=== PATIENT | female | born 1960 | race Caucasian/White ===

== ENCOUNTER 2019-08-18 17:51 | Inpatient (IN) ==
[2019-08-18] MEDS ORDERED: MULTI-VITAMIN INFUSION 10 ML, THIAMINE HCL 100 MG, FOLIC ACID 1 MG in SODIUM CHLORIDE 0... IV ONE (18:32)
[2019-08-18] MEDS ORDERED: SODIUM CHLORIDE 0.9% 1000ML 1,000 ML IV SCH (18:45)
[2019-08-18 18:58] LABS: Alanine Aminotransferase 110 U/L (12-78); Albumin Level 3.4 gm/dl (3.4-5.0); Aspartate Aminotransferase 72 U/L (15-37); BUN Creatinine Ratio 52.5 (10-20); Blood Urea Nitrogen 27 mg/dl (7-18); Calcium 9.8 mg/dl (8.5-10.1); Carbon Dioxide 24 mmol/L (21-32); Chloride 109 mmol/L (98-107); Est GFR (African American) 123.7; Est GFR (Non-African American) 106.7; Glucose 216 mg/dl (70-99); Lipase 600 U/L (73-393); Potassium 3.8 mmol/L (3.5-5.1); Sodium 140 mmol/L (136-145)
[2019-08-18 19:00] LABS: Hematocrit (blood only) 51.1 % (37-47); Hemoglobin 17.8 g/dL (12.0-16.0); Mean Corpuscular Hemoglobin 32.4 pg (25-34); Mean Corpuscular Hgb Conc 34.8 g/dL (32-36); Mean Corpuscular Volume 93.1 fL (80-100); RDW Coefficient of Variation 14.7 % (11.5-14.5); RDW Standard Deviation 49.7 fL (36.4-46.3); Red Blood Count 5.49 M/uL (4.2-5.4); White Blood Count 9.05 K/uL (4.8-10.8)
[2019-08-18] MEDS ORDERED: THIAMINE HCL 500 MG in 0.9 % SODIUM CHLORIDE 100 ML IV SCH (19:00)
--- NOTE | 2019-08-18 19:02 | CT Scan Report ---
CT head/brain wo con CLINICAL HISTORY: 58 years-old Female presenting with weakness, ams. TECHNIQUE: Multidetector CT imaging of the head was performed without the use of intravenous contrast . IV contrast: None. One or more dose lowering techniques were used consistent with the principles of ALARA (as low as reasonably achievable), including automatic exposure control, mA or kV adjustment t o individual patient size, and/or use of iterative reconstruction. COMPARISON: None. CT DOSE (mGy.cm): The estimated cumulative dose is 919.77. FINDINGS: [employer] Assistant topogram: Unremarkable. Ventricles and sulci normal in size. No hemorrhage. Cerebellar atrophy. Brain parenchyma otherwise no rmal in appearance with preserved conteh-white differentiation. No acute territorial infarct. No mass e ffect or midline shift. No extra-axial fluid collection. Paranasal sinuses and mastoid air cells pierre r. Osseous lesion expanding the outer table of the calvarium in the left frontal region. There is a s eparate lesion noted immediately inferior to this in the medullary space measuring 16 mm. IMPRESSION: 1. 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 2. No acute intracranial abnormality. 3. Indeterminate osseous lesions in the left frontal bone. Please ensure the absence of a known madhu gnancy. These may be chronic and could represent chondroma as are hemangiomas among other possible co nsiderations both benign and malignant. Correlate clinically. Consider follow-up if these are new or of uncertain chronicity. Electronically signed by: Abelino Vyas M.D. 08/18/2019 7:00 PM
[2019-08-18 19:04] LABS: Albumin Globulin Ratio 0.9 (0.9-2); Alkaline Phosphatase 85 U/L (45-117); Bilirubin,Total 0.2 mg/dl (0.2-1); Globulin 3.6 gm/dl (2.5-4.0); Phosphorus 2.9 mg/dl (2.5-4.9); Troponin I < 0.015 ng/ml (0-0.045)
[2019-08-18 19:09] LABS: INR 1.1 (0.9-1.1)
--- NOTE | 2019-08-18 19:09 | CT Scan Report ---
CT cervical spine wo con CLINICAL HISTORY: 58 years-old Female presenting with ams. TECHNIQUE: Multidetector CT of the cervical spine was performed without the use of intravenous contra st. IV contrast: None. One or more dose lowering techniques were used consistent with the principles of ALARA (as low as reasonably achievable), including automatic exposure control, mA or kV adjustment to individual patient size, and/or use of iterative reconstruction. COMPARISON: None. CT DOSE (mGy.cm): The estimated cumulative dose is 919.77 mGy.cm. FINDINGS: Site Director topogram: Unremarkable. Straightening of normal cervical lordosis likely due to multilevel degenerative changes. Heterogeneou s appearance of bone marrow. Mild compression deformity with a possible fracture of the anterior supe rior corner of T1. This is also noted to a lesser degree at T2. No additional fracture is evident in the cervical spine. Remainder of the vertebral bodies maintain normal height and alignment. Disc oste ophyte complexes noted to varying degrees at every level with very degrees of intervertebral disc hei ght loss. There are degrees of osseous neural foraminal narrowing. Skull base intact. Mild degenerati ve changes of the atlantodental articulation. IMPRESSION: 1. Mild compression fracture of T1, which may be acute including an anterior superior corner fractur e. Similar though less severe findings at T2. 2. No acute osseous injury of the cervical spine. 3. Multilevel degenerative changes. 4. Heterogeneity of bone marrow could suggest underlying osteopenia or marrow replacing process. Pre sumably the patient does not have a history of malignancy. Electronically signed by: Abelino Vyas M.D. 08/18/2019 7:08 PM
[2019-08-18 19:19] LABS: Appearance Urine Clear (Clear); Bacteria Urine Automated Negative (Negative); Bilirubin Urine Negative (Negative); Blood Urine Negative (Negative); Cast Urine Automated 0 /lpf (0-5); Color Urine Yellow; Epithelial Cell Urine Auto >30 /lpf (0-5); Glucose Urine UA Negative (Negative); Ketones Urine Trace (Negative); Leukocyte Esterase Urine Trace (Negative); Nitrite Urine Negative (Negative); Protein Urine Negative (Negative); RBC Urine Automated 0-4 /hpf (0-4); Specific Gravity Urine 1.018 (1.000-1.030); Urobilinogen Urine Negative (Negative); pH Urine 5.5 (4.5-7.5)
--- NOTE | 2019-08-18 19:21 | XRay Report ---
XR chest 1V portable CLINICAL HISTORY: 58 years-old Female presenting with ams, weakness. TECHNIQUE: Portable upright AP view of the chest was obtained. COMPARISON: None. FINDINGS: Borderline cardiac silhouette enlargement. No focal opacity. No large effusion or pneumothorax. [place] structures normal. Upper abdomen normal. IMPRESSION: 1. Borderline cardiomegaly. No other convincing evidence of acute cardiopulmonary disease. Electronically signed by: Abelino Vyas M.D. 08/18/2019 7:19 PM
[2019-08-18 19:33] LABS: Base Excess VBG -0.8 mEq/L; Oxygen Saturation VBG 93.4 %; pH VBG 7.34 (7.36-7.41)
[2019-08-18 19:42] LABS: Mean Platelet Volume 11.6 fL (7.4-10.4); Platelet Count 92 K/uL (130-400)
[2019-08-18 19:43] LABS: Basophils # (auto) 0.01 K/uL (0-0.2); Basophils % (auto) 0.1 %; Eosinophils # (auto) 0.02 K/uL (0-0.5); Eosinophils % (auto) 0.2 %; Immature Granulocytes # (auto) 0.03 K/uL (0.00-0.02); Immature Granulocytes % (auto) 0.3 %; Lymphocytes # (auto) 1.29 K/uL (1.2-3.4); Lymphocytes % (auto) 14.3 %; Monocytes # (auto) 0.49 K/uL (0.11-0.59); Monocytes % (auto) 5.4 %; Neutrophils # (auto) 7.21 K/uL (1.4-6.5); Neutrophils % (auto) 79.7 %; Platelet Estimate Decreased (Normal)
--- NOTE | 2019-08-18 21:30 | Communication Note ---
Date of Service: August 18, 2019 Attending Addendum: care coordinated with EB Rapp please refer to her notes for full details, I agree with her notes patient seen and examined, records reviewed by myself as well on exam, patient seen resting in bed, comfortable, not in distress, alert, oriented to person and place slow to answer questions, very soft voice but conversant, cooperative, calm not aware while she was brought by family to the ER states she feels fine overall only reports "stomach upset" at home, non radiating, no nause/vomiting, melena, nausea, hematemesis no other symptoms VS noted and reviewed General- oriented x 2, not in distress, speaks in sentences with no effort or accessory muscle use Head- atraumatic Eyes- PERRL, EOMI, anicteric ENT- oropharynx clear Neck- supple, no JVD, no adenopathy, no thyromegaly; carotids +2/2, no bruits appreciated Lungs- clear to auscultation bilaterally, no rales/wheezes Heart- normal rate, regular rhythm; no murmur, no gallop, no rub appreciated Abdomen- normal bowel sounds, nondistended, soft, nontender, no masses or hepatosplenomegaly Extremities- no pretibial edema, no calf tenderness; peripheral pulses intact Neuro- alert, oriented x 2; CN 2-12 grossly intact; motor 5/5 bilaterally;sensation 100% on all extremities; no other gross focal neurologic deficits Skin- warm & dry WBC 9.05 [address] head: IMPRESSION: 1. 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 2. No acute intracranial abnormality. 3. Indeterminate osseous lesions in the left frontal bone. Please ensure the absence of a known malignancy. These may be chronic and could represent chondroma as are hemangiomas among other possible considerations both benign and malignant. Correlate clinically. Consider follow-up if these are new or of uncertain chronicity. ASSESSMENT AND PLAN WEAKNESS, HYPOTHERMIA -- patient's mental status at baseline as per brother -- R/O Infection unclear focus of infection at this time: UA no uti, CXR no pneumonia ff up cultures cover with empiric Cefepime -- r/o Hypothyroidism TSH/FT4 -- r/o Hypoadrenalism Cortisol level ABDOMINAL PAIN, POSSIBLE PANCREATITIS -- likely Alcohol related Lipase 600s -- ff up CT abdomen/pelvis -- NPO, Lactated Ringer's R/O BRAIN MASS -- CT head: Indeterminate osseous lesions in the left frontal bone. Please ensure the absence of a known malignancy. These may be chronic and could represent chondroma as are hemangiomas among other possible considerations both benign and malignant. Correlate clinically. Consider follow-up if these are new or of uncertain chronicity. -- ff up Brain MRI Neurochecks HYPERGLYCEMIA -- not a known Diabetic -- check AIC -- Insulin Sliding Scale for now ALCOHOLISM -- drinks 4-5 beers/day -- last drink 1-2 days ago -- Alcohol Withdrawal Protocol with Librium other diagnoses and plan of care as per EB Rapp's notes Nico Rangel MD
--- NOTE | 2019-08-18 21:46 | History & Physical Report ---
Date of Service August 18, 2019 Assessment & Plan (1) Hypothermia: -Admit to telemetry -Patient's brother called EMS to bring the patient in for evaluation of sluggishness and slow to respond -In the ED, found to be hypothermic at 32 C; was also initially bradycardic, HR improving -Etiology unclear at this point -will rule out infection; UA does not appear infected, blood cultures obtained, CXR does not show signs of pneumonia; empiric cefepime for now -Check TSH -Check random cortisol level to evaluate for hypo-adrenalism -Pancreatitis and CVA also considered however unlikely given the patient does not have extreme cases of either of these -Continue kranthi sun (2) Alcoholism: (3) Wernicke encephalopathy: -Per patient's brother, she drinks 4-5 beers/day -Also history of Wernicke encephalopathy and does take vitamins daily (however vitamins are currently unknown) -Received banana bag in the ED -Alcohol withdrawal protocol with Librium, PRN Ativan -P.o. thiamine, multivitamin, folic acid (4) Abdominal pain: -? pancreatitis, lipase 600; likely chronic pancreatitis secondary to alcohol use -N.p.o., LR @150 cc/hour -Check CT ABD/pelvis (5) Brain lesion: -CT head showing indeterminate osseous lesions in the left frontal bone question possible malignancy -Brain MRI (6) Hyperglycemia: -Random glucose 216 -No report of diabetes -Check Hgb A1c -NovoLog per protocol (7) Thrombocytopenia: -Platelets 92K -No signs of bleeding -Likely secondary to chronic alcohol use (8) DVT prophylaxis: -SCDs due to thrombocytopenia Care was discussed with patient's brother Hiram [phone] who she is currently staying with. Patient primarily lives with her other brother Navarro [phone]. History of Present Illness Chief Complaint: Slow to respond, sluggish Primary Care Provider: NO PCP 58-year-old female who was brought to the ED via EMS for evaluation of sl uggishness. Patient has history of Wernicke encephalopathy and alcoholism. History is somewhat limited from her. I spoke to the patient's brother, Hiram on the phone. He reports that the patient typically lives with their other brother, Navarro, most of the time however he has been out of town for work the past 3 weeks and he she has been staying with Hiram. He reports the patient has history of Wernicke encephalopathy and takes vitamins on a daily basis. He is unsure of exactly what vitamin she is taking but reports she has been taking them recently and has not missed any doses. Patient drinks 4 to 5 cans of beer per day for the past several years. No history of alcohol withdrawal. No reported drug abuse. At the time of our exam, patient is awake and alert. Her speech is soft and somewhat pressured. She reports that she has had an upset stomach the past few days. She denies any other complaints. Upon arrival to the ED, patient was found to be hypothermic at 32 C. She was also bradycardic in the 40s however heart rate has been improving. Labs show hyperglycemia with glucose 216 and mildly elevated AST and ALTs, lipase 600. CXR is negative for acute findings. Head CT is negative for acute intracranial findings however does show possible left frontal osseous bone lesions. Patient was given a banana bag, IVF, IV thiamine. 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 Physical Exam Physical Exam: Please refer to Dr. Rangel's addendum for physical exam. Results & Data Vital Signs (Past 12 Hours) Vital Signs Temp Pulse Pulse Resp BP BP Pulse Ox 08/18/19 20:58 32.3 C L 08/18/19 19:23 42 L 11 L 108/64 97 08/18/19 19:10 44 L 13 96 08/18/19 19:01 42 L 12 98 08/18/19 19:00 41 L 10 L 116/63 96 08/18/19 18:53 66 12 98 08/18/19 18:31 44 L 12 104/54 L 96 08/18/19 18:30 47 L 15 93 08/18/19 18:20 47 L 11 L 95 08/18/19 18:15 48 L 12 114/64 95 08/18/19 18:10 46 L 13 97 08/18/19 18:03 32.0 C L 48 L 14 112/64 96 08/18/19 18:01 56 L 13 96 08/18/19 18:00 48 L 12 112/64 95 Laboratory Results Short CBC 08/18/19 Range/Units 18:23 WBC 9.05 (4.8-10.8) K/uL Hgb 17.8 H (12.0-16.0) g/dL Hct 51.1 H (37-47) % Plt Count 92 L (130-400) K/uL BMP 08/18/19 18:23 Sodium 140 Potassium 3.8 Chloride 109 H Carbon Dioxide 24 BUN 27 H Creatinine 0.51 L Glucose 216 H Calcium 9.8 Cardiac Enzymes 08/18/19 Range/Units 18:23 Troponin I < 0.015 (0-0.045) ng/ml Liver Function 08/18/19 Range/Units 18:23 Total Bilirubin 0.2 (0.2-1) mg/dl AST 72 H (15-37) U/L ALT 110 H (12-78) U/L Alkaline Phosphatase 85 (45-117) U/L Albumin 3.4 (3.4-5.0) gm/dl Urine 08/18/19 Range/Units 18:35 Urine Color Yellow Urine Appearance Clear (Clear) Urine pH 5.5 (4.5-7.5) Ur Specific [place] 1.018 (1.000-1.030) Urine Protein Negative (Negative) Urine Glucose (UA) Negative (Negative) Diagnostic Findings CERVICAL SPINE CT IMPRESSION: 1. Mild compression fracture of T1, which may be acute including an anterior superior corner fracture. Similar though less severe findings at T2. 2. No acute osseous injury of the cervical spine. 3. Multilevel degenerative changes. 4. Heterogeneity of bone marrow could suggest underlying osteopenia or marrow replacing process. Presumably the patient does not have a history of malignancy. HEAD CT IMPRESSION: 1. 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 2. No acute intracranial abnormality. 3. Indeterminate osseous lesions in the left frontal bone. Please ensure the absence of a known malignancy. These may be chronic and could represent chondroma as are hemangiomas among other possible considerations both benign and malignant. Correlate clinically. Consider follow-up if these are new or of uncertain chronicity. CXR IMPRESSION: 1. Borderline cardiomegaly. No other convincing evidence of acute cardiopulmonary disease. Code Status & VTE Plan VTE Prophylaxis Plan VTE Prophylaxis will be ordered: Yes Supervising Physician Co-Signing Physician Notes Date of Service: August 18, 2019 Attending Addendum: care coordinated with EB Rapp please refer to her notes for full details, I agree with her notes patient seen and examined, records reviewed by myself as well on exam, patient seen resting in bed, comfortable, not in distress, alert, oriented to person and place slow to answer questions, very soft voice but conversant, cooperative, calm not aware while she was brought by family to the ER states she feels fine overall only reports "stomach upset" at home, non radiating, no nause/vomiting, melena, nausea, hematemesis no other symptoms VS noted and reviewed General- oriented x 2, not in distress, speaks in sentences with no effort or accessory muscle use Head- atraumatic Eyes- PERRL, EOMI, anicteric ENT- oropharynx clear Neck- supple, no JVD, no adenopathy, no thyromegaly; carotids +2/2, no bruits appreciated Lungs- clear to auscultation bilaterally, no rales/wheezes Heart- normal rate, regular rhythm; no murmur, no gallop, no rub appreciated Abdomen- normal bowel sounds, nondistended, soft, nontender, no masses or hepatosplenomegaly Extremities- no pretibial edema, no calf tenderness; peripheral pulses intact Neuro- alert, oriented x 2; CN 2-12 grossly intact; motor 5/5 bilaterally;sensation 100% on all extremities; no other gross focal neurologic deficits Skin- warm & dry WBC 9.05 [address] head: IMPRESSION: 1. 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 2. No acute intracranial abnormality. 3. Indeterminate osseous lesions in the left frontal bone. Please ensure the absence of a known malignancy. These may be chronic and could represent chondroma as are hemangiomas among other possible considerations both benign and malignant. Correlate clinically. Consider follow-up if these are new or of uncertain chronicity. ASSESSMENT AND PLAN WEAKNESS, HYPOTHERMIA -- patient's mental status at baseline as per brother -- R/O Infection unclear focus of infection at this time: UA no uti, CXR no pneumonia ff up cultures cover with empiric Cefepime -- r/o Hypothyroidism TSH/FT4 -- r/o Hypoadrenalism Cortisol level ABDOMINAL PAIN, POSSIBLE PANCREATITIS -- likely Alcohol related Lipase 600s -- ff up CT abdomen/pelvis -- NPO, Lactated Ringer's R/O BRAIN MASS -- CT head: Indeterminate osseous lesions in the left frontal bone. Please ensure the absence of a known malignancy. These may be chronic and could represent chondroma as are hemangiomas among other possible considerations both benign and malignant. Correlate clinically. Consider follow-up if these are new or of uncertain chronicity. -- ff up Brain MRI Neurochecks HYPERGLYCEMIA -- not a known Diabetic -- check AIC -- Insulin Sliding Scale for now ALCOHOLISM -- drinks 4-5 beers/day -- last drink 1-2 days ago -- Alcohol Withdrawal Protocol with Librium other diagnoses and plan of care as per EB Rapp's notes Nico Rangel MD (1) Hypothermia Encounter type: initial encounter Qualified Code(s): T68.XXXA - Hypothermia, initial encounter
[2019-08-18] MEDS ORDERED: DEXTROSE 50% 50 ML SYRINGE IV PRN (22:47)
[2019-08-18] MEDS ORDERED: GLUCOSE 10 TABS/TUBE PO PRN (22:47)
[2019-08-18] MEDS ORDERED: GLUCOSE 40% GEL 15 GM TUBE PO PRN (22:47)
[2019-08-18] MEDS ORDERED: GLUCAGON FOR INJ 1 MG VIAL SQ PRN (22:47)
[2019-08-18] MEDS ORDERED: CARBOHYDRATES FOR HYPOGLYCEMIA PO PRN (22:47)
[2019-08-18] MEDS ORDERED: LORazepam 1 MG/2 ML VIAL IV PRN (22:47)
[2019-08-18] MEDS ORDERED: LORazepam 3 MG/6 ML VIAL IV PRN (22:47)
[2019-08-18] MEDS ORDERED: ATIVAN IV ALCOHOL WITHDRAWL IV PRN (22:47)
[2019-08-18] MEDS ORDERED: LORazepam 1 MG TAB PO PRN (22:47)
[2019-08-18] MEDS ORDERED: ACETAMINOPHEN 325 MG TAB PO PRN (22:47)
[2019-08-18] MEDS ORDERED: LORazepam 2 MG/4 ML VIAL IV PRN (22:47)
[2019-08-18] MEDS ORDERED: chlordiazePOXIDE ALCOHOL WITHDRAWL 25MG PO STA (22:47)
[2019-08-18] MEDS: LACTATED RINGER'S 1,000 ML IV SCH (22:59)
[2019-08-18] MEDS: CEFEPIME 1,000 MG in SYRINGE 0 ML IV SCH (23:31)
[2019-08-19] MEDS: INSULIN ASPART 100 UNITS/ML 3 ML PEN SC SCH ×5 (00:04→21:38)
[2019-08-19] MEDS: THIAMINE HCL 100 MG TAB PO SCH ×2 (00:04→08:03)
[2019-08-19] MEDS: chlordiazePOXIDE HCl 25 MG CAP PO SCH ×5 (00:25→22:35)
--- NOTE | 2019-08-19 01:12 | Emergency Department Note ---
Entered by Will Rios acting as a scribe for Arthur Neal M.D. History of Present Illness General Chief complaint: Illness Stated complaint: CONFUSION, NEURO SX Time Seen by Provider: 08/18/19 18:27 Source: other (Nursing) Limitations: altered mental status History of Present Illness Location: head Maximum Pain Intensity: 0 Associated symptoms: + weakness and + other (slurring words, gargling) The patient is a 58 year old female who presents to the Emergency Room with complaints of AMS. Nursing states the patient is an alcoholic and has not drank in the past 2 days. Nursing states the patient was walking around outside in the cold yesterday. Nursing stats the patient has been getting more weak and started slurring and gargling today. Nursing states the patient's rectal temperature was 32. Nursing states the patient's HR has been down to the 40s. The patient nods her head when asked if she is in any pain. HPI is limited secondary to altered mental status. Home Medications Home Medications Medication Instructions Recorded Confirmed Type Unobtainable 08/18/19 08/18/19 History Allergies Allergy/AdvReac Type Severity Reaction Status Date / Time Unable to Assess Allergy Unverified 08/18/19 18:22 Past Med/Surg History Medical History Alcoholism Wernickes encephalopathy Family History Other Family history unobtainable Social History Preferred Language: [place] Island[place] Communication Ability: Impaired Communication Ability Comment: not answering Sign Shop Supervisor Required: No Beliefs That Will Affect Care: None Current Living Situation: Alone Smoking Status: Current every day smoker Hx Alcohol Use: Yes Alcohol type: beer Alcohol type Comment: 4-5 beers/day Review of Systems Unobtainable due to cognitive status Physical Exam Vital Signs Vital Signs - 24 hr 08/18/19 18:00 08/18/19 18:01 08/18/19 18:03 Temperature 32.0 C L Temperature Source Rectal Pulse Rate 48 L 56 L 48 L Pulse Rate [Finger] Pulse Rate from SpO2 Sensor 49 L 54 L Respiratory Rate 12 13 14 Blood Pressure 112/64 112/64 Blood Pressure [Right Arm] Blood Pressure Mean 75 80 Blood Pressure Mean [Right Arm] Pulse Oximetry 95 96 96 Oxygen Delivery Method Room Air Room Air Room Air Sepsis New/Unexplained Change in Mental Status Yes Sepsis Action Taken by Nursing No Action Required 08/18/19 18:10 08/18/19 18:15 08/18/19 18:20 Temperature Temperature Source Pulse Rate 46 L 48 L 47 L Pulse Rate [Finger] Pulse Rate from SpO2 Sensor 47 L 47 L 47 L Respiratory Rate 13 12 11 L Blood Pressure 114/64 Blood Pressure [Right Arm] Blood Pressure Mean 74 Blood Pressure Mean [Right Arm] Pulse Oximetry 97 95 95 Oxygen Delivery Method Room Air Room Air Room Air Sepsis New/Unexplained Change in Mental Status Sepsis Action Taken by Nursing 08/18/19 18:30 08/18/19 18:31 08/18/19 18:53 Temperature Temperature Source Pulse Rate 47 L 44 L 66 Pulse Rate [Finger] Pulse Rate from SpO2 Sensor 47 L 45 L 47 L Respiratory Rate 15 12 12 Blood Pressure 104/54 L Blood Pressure [Right Arm] Blood Pressure Mean 74 Blood Pressure Mean [Right Arm] Pulse Oximetry 93 96 98 Oxygen Delivery Method Room Air Room Air Room Air Sepsis New/Unexplained Change in Mental Status Sepsis Action Taken by Nursing 08/18/19 19:00 08/18/19 19:01 08/18/19 19:10 Temperature Temperature Source Pulse Rate 41 L 42 L 44 L Pulse Rate [Finger] Pulse Rate from SpO2 Sensor 42 L 41 L 43 L Respiratory Rate 10 L 12 13 Blood Pressure 116/63 Blood Pressure [Right Arm] Blood Pressure Mean 85 Blood Pressure Mean [Right Arm] Pulse Oximetry 96 98 96 Oxygen Delivery Method Room Air Room Air Room Air Sepsis New/Unexplained Change in Mental Status Sepsis Action Taken by Nursing 08/18/19 19:16 08/18/19 19:20 08/18/19 19:23 Temperature Temperature Source Pulse Rate 47 L 46 L Pulse Rate [Finger] 42 L Pulse Rate from SpO2 Sensor 47 L 45 L Respiratory Rate 16 13 11 L Blood Pressure 108/64 Blood Pressure [Right Arm] 108/64 Blood Pressure Mean 73 Blood Pressure Mean [Right Arm] 78 Pulse Oximetry 98 96 97 Oxygen Delivery Method Room Air Room Air Room Air Sepsis New/Unexplained Change in Mental Status Sepsis Action Taken by Nursing 08/18/19 19:30 08/18/19 19:31 08/18/19 19:40 Temperature Temperature Source Pulse Rate 55 L 47 L 55 L Pulse Rate [Finger] Pulse Rate from SpO2 Sensor 53 L 49 L 56 L Respiratory Rate 12 12 12 Blood Pressure 104/58 L Blood Pressure [Right Arm] Blood Pressure Mean 64 Blood Pressure Mean [Right Arm] Pulse Oximetry 96 98 99 Oxygen Delivery Method Room Air Room Air Room Air Sepsis New/Unexplained Change in Mental Status Sepsis Action Taken by Nursing 08/18/19 19:45 08/18/19 19:50 08/18/19 20:00 Temperature Temperature Source Pulse Rate 54 L 57 L 58 L Pulse Rate [Finger] Pulse Rate from SpO2 Sensor 56 L 57 L 59 L Respiratory Rate 12 14 13 Blood Pressure 103/59 L 113/67 Blood Pressure [Right Arm] Blood Pressure Mean 74 79 Blood Pressure Mean [Right Arm] Pulse Oximetry 97 99 97 Oxygen Delivery Method Room Air Room Air Room Air Sepsis New/Unexplained Change in Mental Status Sepsis Action Taken by Nursing 08/18/19 20:01 08/18/19 20:10 08/18/19 20:15 Temperature Temperature Source Pulse Rate 58 L 58 L 59 L Pulse Rate [Finger] Pulse Rate from SpO2 Sensor 57 L 57 L 57 L Respiratory Rate 18 12 11 L Blood Pressure 98/62 L Blood Pressure [Right Arm] Blood Pressure Mean 75 Blood Pressure Mean [Right Arm] Pulse Oximetry 97 96 97 Oxygen Delivery Method Room Air Room Air Room Air Sepsis New/Unexplained Change in Mental Status Sepsis Action Taken by Nursing 08/18/19 20:20 08/18/19 20:30 08/18/19 20:31 Temperature Temperature Source Pulse Rate 67 59 L 62 Pulse Rate [Finger] Pulse Rate from SpO2 Sensor 66 61 61 Respiratory Rate 12 11 L 16 Blood Pressure 107/64 Blood Pressure [Right Arm] Blood Pressure Mean 78 Blood Pressure Mean [Right Arm] Pulse Oximetry 98 97 97 Oxygen Delivery Method Room Air Room Air Room Air Sepsis New/Unexplained Change in Mental Status Sepsis Action Taken by Nursing 08/18/19 20:40 08/18/19 20:45 08/18/19 20:50 Temperature Temperature Source Pulse Rate 70 79 72 Pulse Rate [Finger] Pulse Rate from SpO2 Sensor 69 79 73 Respiratory Rate 15 12 13 Blood Pressure 120/72 Blood Pressure [Right Arm] Blood Pressure Mean 86 Blood Pressure Mean [Right Arm] Pulse Oximetry 98 97 96 Oxygen Delivery Method Room Air Room Air Room Air Sepsis New/Unexplained Change in Mental Status Sepsis Action Taken by Nursing 08/18/19 20:58 11/12/19 21:00 Temperature 32.3 C L Temperature Source Rectal Pulse Rate 69 Pulse Rate [Finger] Pulse Rate from SpO2 Sensor 69 Respiratory Rate 9 L Blood Pressure 100/68 Blood Pressure [Right Arm] Blood Pressure Mean 78 Blood Pressure Mean [Right Arm] Pulse Oximetry 97 Oxygen Delivery Method Room Air Sepsis New/Unexplained Change in Mental Status Sepsis Action Taken by Nursing GENERAL: Awake, alert, non-verbal, in no distress HENT: Normocephalic, atraumatic. Oropharynx unremarkable. EYES: Normal conjunctiva. Sclera non-icteric. EOMI. PERRL NECK: Supple. No nuchal rigidity. RESPIRATORY: Clear to auscultation. Normal respiratory effort. CARDIAC: Bradycardic rate. Normal rhythm. Extremities perfused but mildly cool. GI: Soft, non-distended. No tenderness to palpation. No rebound or guarding. RECTAL: Deferred. MUSCULOSKELETAL: Atraumatic. Chest examination reveals no tenderness. LOWER EXTREMITIES: Calves are equal size bilaterally and non-tender. No edema NEURO: Non-verbal. Moving all extremities. No facial droop. SKIN: Warm and dry. No rash or jaundice noted. Course Course 1827: The patient was evaluated in room B8, and a complete history and physical examination were performed. 2019: I talked to the patient's brother on the phone. 2028: I discussed the patient's case with Dr. Degroot [facility] Hospitalist. He will evaluate the patient for further management Administered Medications Chlordiazepoxide HCl (Librium) 25 mg PO Q6H FLORENCIA; Taper Stop: 08/20/19 22:59 Last Admin: 08/19/19 00:25 Dose: 25 mg Documented by: [id number] Cefepime HCl 1,000 mg/ Syringe 11.3 mls @ 5.5 mls/min IV Q8H FLORENCIA; Protocol Stop: 08/20/19 23:29 Last Admin: 08/18/19 23:31 Dose: 5.5 mls/min Documented by: [id number] Lactated Ringer's (Lr) 1,000 mls @ 150 mls/hr IV .Q6H40M FLORENCIA Stop: 09/17/19 22:59 Last Admin: 08/18/19 22:59 Dose: 150 mls/hr Documented by: [id number] Insulin Aspart (Novolog Flexpen) 0 units SC Q6 FLORENCIA Stop: 09/18/19 00:00 Last Admin: 08/19/19 00:04 Dose: Not Given Documented by: [id number] Cosigned by: [id number] Miscellaneous (Remove Nicoderm Patch) 1 ea N/A HS [facility] Stop: 09/17/19 22:46 Last Admin: 08/18/19 23:14 Dose: Not Given Documented by: [id number] Thiamine HCl (Vitamin B-1) 100 mg PO QAM FLORENCIA Stop: 09/17/19 23:29 Last Admin: 08/19/19 00:04 Dose: 100 mg Documented by: [id number] Discontinued Medications Sodium Chloride (Nss 1000ml) 1,000 mls @ 999 mls/hr IV .Q1H1M FLORENCIA Stop: 08/18/19 19:45 Last Infusion: 08/18/19 20:46 Dose: 0 mls/hr Documented by: [id number] Admin: 08/18/19 19:23 Dose: 999 mls/hr Documented by: [id number] Multivitamins 10 ml/ Thiamine HCl 100 mg/ Folic Acid 1 mg/Sodium Chloride 1,011.2 mls @ 1,011.2 mls/hr IV .Q1H ONE Stop: 08/18/19 19:31 Last Infusion: 08/18/19 20:46 Dose: 0 mls/hr Documented by: [id number] Admin: 08/18/19 19:20 Dose: 1,011.2 mls/hr Documented by: [id number] Thiamine HCl 500 mg/ Sodium (Chloride) 105 mls @ 210 mls/hr IV TODAY@1900 [facility] Stop: 08/18/19 19:29 Last Infusion: 08/18/19 19:54 Dose: 0 mls/hr Documented by: [id number] Admin: 08/18/19 19:23 Dose: 210 mls/hr Documented by: [id number] Impression & Plan AMS (altered mental status), Wernicke encephalopathy, Hypothermia Critical Care Time Critical Care Time: Yes Total Critical Care Time: 42 I have personally spent 42 minutes of critical care time in the direct management of this patient for AMS and hypothermia. This includes bedside care, interpretation of diagnostic studies, and testing, discussion with consultants, patient, and family members, and other required patient management activities. These 42 minutes is in excess of all separately billable procedures. Medical Decision Making Differential Diagnosis Differential diagnoses includes but is not limited to toxic, metabolic, infectious, traumatic, cardiac, neurologic, hematologic, psychiatric and inflammatory etiologies. Medical Records Attestation: I reviewed the patient's medical records. Home Medications Current Medication List: was personally reviewed by me Laboratory Data Attestation: I reviewed the patient's lab results. Result diagrams: 08/18/19 18:23 08/18/19 18:23 Lab Results 08/18/19 08/18/19 08/18/19 Range/Units 18:18 18:23 18:23 WBC 9.05 (4.8-10.8) K/uL RBC 5.49 H (4.2-5.4) M/uL Hgb 17.8 H (12.0-16.0) g/dL Hct 51.1 H (37-47) % MCV 93.1 (80-100) fL MCH 32.4 (25-34) pg MCHC 34.8 (32-36) g/dL RDW Std Deviation 49.7 H (36.4-46.3) fL RDW Coeff of Ketan 14.7 H (11.5-14.5) % Plt Count 92 L (130-400) K/uL MPV 11.6 H (7.4-10.4) fL Immature Gran % (Auto) 0.3 % Neut % (Auto) 79.7 % Lymph % (Auto) 14.3 % Dawson % (Auto) 5.4 % Eos % (Auto) 0.2 % Baso % (Auto) 0.1 % Immature Gran # (Auto) 0.03 H (0.00-0.02) K/uL Neut # (Auto) 7.21 H (1.4-6.5) K/uL Lymph # (Auto) 1.29 (1.2-3.4) K/uL Dawson # (Auto) 0.49 (0.11-0.59) K/uL Eos # (Auto) 0.02 (0-0.5) K/uL Baso # (Auto) 0.01 (0-0.2) K/uL Platelet Estimate Decreased L (Normal) PT 11.0 (9.0-12.0) Seconds INR 1.1 (0.9-1.1) VBG pH (7.36-7.41) VBG pCO2 (38-50) mmHg VBG pO2 mmHg VBG HCO3 mmol/L VBG O2 Saturation % VBG Base Excess mEq/L Barometric Pressure mm/Hg Sodium (136-145) mmol/L Potassium (3.5-5.1) mmol/L Chloride (98-107) mmol/L Carbon Dioxide (21-32) mmol/L Anion Gap (3-11) BUN (7-18) mg/dl Creatinine (0.6-1.2) mg/dl Est Cr Clr Drug Dosing Est GFR ( Amer) Est GFR (Non-Af Amer) BUN/Creatinine Ratio (10-20) Glucose (70-99) mg/dl POC Glucose 187 H (70-99) Lactate (0.4-2.0) mmol/L Calcium (8.5-10.1) mg/dl Phosphorus (2.5-4.9) mg/dl Magnesium (1.8-2.4) mg/dl Total Bilirubin (0.2-1) mg/dl AST (15-37) U/L ALT (12-78) U/L Alkaline Phosphatase (45-117) U/L Ammonia Troponin I (0-0.045) ng/ml Total Protein (6.4-8.2) gm/dl Albumin (3.4-5.0) gm/dl Globulin (2.5-4.0) gm/dl Albumin/Globulin Ratio (0.9-2) Lipase (73-393) U/L TSH (0.300-4.500) uIu/ml Random Cortisol mcg/dl Urine Color Urine Appearance (Clear) Urine pH (4.5-7.5) Ur Specific [place] (1.000-1.030) Urine Protein (Negative) Urine Glucose (UA) (Negative) Urine Ketones (Negative) Urine Blood (Negative) Urine Nitrite (Negative) Urine Bilirubin (Negative) Urine Urobilinogen (Negative) Ur Leukocyte Esterase (Negative) Urine WBC (Auto) (0-5) /hpf Urine RBC (Auto) (0-4) /hpf U Hyaline Cast (Auto) (0-5) /lpf U Epithel Cells (Auto) (0-5) /lpf Urine Bacteria (Auto) (Negative) Hepatitis C Ab Screen (Neg) 08/18/19 08/18/19 08/18/19 Range/Units 18:23 18:23 18:23 WBC (4.8-10.8) K/uL RBC (4.2-5.4) M/uL Hgb (12.0-16.0) g/dL Hct (37-47) % MCV (80-100) fL MCH (25-34) pg MCHC (32-36) g/dL RDW Std Deviation (36.4-46.3) fL RDW Coeff of Ketan (11.5-14.5) % Plt Count (130-400) K/uL MPV (7.4-10.4) fL Immature Gran % (Auto) % Neut % (Auto) % Lymph % (Auto) % Dawson % (Auto) % Eos % (Auto) % Baso % (Auto) % Immature Gran # (Auto) (0.00-0.02) K/uL Neut # (Auto) (1.4-6.5) K/uL Lymph # (Auto) (1.2-3.4) K/uL Dawson # (Auto) (0.11-0.59) K/uL Eos # (Auto) (0-0.5) K/uL Baso # (Auto) (0-0.2) K/uL Platelet Estimate (Normal) PT (9.0-12.0) Seconds INR (0.9-1.1) VBG pH (7.36-7.41) VBG pCO2 (38-50) mmHg VBG pO2 mmHg VBG HCO3 mmol/L VBG O2 Saturation % VBG Base Excess mEq/L Barometric Pressure mm/Hg Sodium 140 (136-145) mmol/L Potassium 3.8 (3.5-5.1) mmol/L Chloride 109 H (98-107) mmol/L Carbon Dioxide 24 (21-32) mmol/L Anion Gap 8.0 (3-11) BUN 27 H (7-18) mg/dl Creatinine 0.51 L (0.6-1.2) mg/dl Est Cr Clr Drug Dosing Not Reportable Est GFR ( Amer) 123.7 Est GFR (Non-Af Amer) 106.7 BUN/Creatinine Ratio 52.5 H (10-20) Glucose 216 H (70-99) mg/dl POC Glucose (70-99) Lactate 0.6 (0.4-2.0) mmol/L Calcium 9.8 (8.5-10.1) mg/dl Phosphorus 2.9 (2.5-4.9) mg/dl Magnesium 2.0 (1.8-2.4) mg/dl Total Bilirubin 0.2 (0.2-1) mg/dl AST 72 H (15-37) U/L ALT 110 H (12-78) U/L Alkaline Phosphatase 85 (45-117) U/L Ammonia Troponin I < 0.015 (0-0.045) ng/ml Total Protein 7.0 (6.4-8.2) gm/dl Albumin 3.4 (3.4-5.0) gm/dl Globulin 3.6 (2.5-4.0) gm/dl Albumin/Globulin Ratio 0.9 (0.9-2) Lipase 600 H (73-393) U/L TSH 6.180 H (0.300-4.500) uIu/ml Random Cortisol mcg/dl Urine Color Urine Appearance (Clear) Urine pH (4.5-7.5) Ur Specific [place] (1.000-1.030) Urine Protein (Negative) Urine Glucose (UA) (Negative) Urine Ketones (Negative) Urine Blood (Negative) Urine Nitrite (Negative) Urine Bilirubin (Negative) Urine Urobilinogen (Negative) Ur Leukocyte Esterase (Negative) Urine WBC (Auto) (0-5) /hpf Urine RBC (Auto) (0-4) /hpf U Hyaline Cast (Auto) (0-5) /lpf U Epithel Cells (Auto) (0-5) /lpf Urine Bacteria (Auto) (Negative) Hepatitis C Ab Screen Neg (Neg) 08/18/19 08/18/19 08/18/19 Range/Units 18:23 18:35 19:15 WBC (4.8-10.8) K/uL RBC (4.2-5.4) M/uL Hgb (12.0-16.0) g/dL Hct (37-47) % MCV (80-100) fL MCH (25-34) pg MCHC (32-36) g/dL RDW Std Deviation (36.4-46.3) fL RDW Coeff of Ketan (11.5-14.5) % Plt Count (130-400) K/uL MPV (7.4-10.4) fL Immature Gran % (Auto) % Neut % (Auto) % Lymph % (Auto) % Dawson % (Auto) % Eos % (Auto) % Baso % (Auto) % Immature Gran # (Auto) (0.00-0.02) K/uL Neut # (Auto) (1.4-6.5) K/uL Lymph # (Auto) (1.2-3.4) K/uL Dawson # (Auto) (0.11-0.59) K/uL Eos # (Auto) (0-0.5) K/uL Baso # (Auto) (0-0.2) K/uL Platelet Estimate (Normal) PT (9.0-12.0) Seconds INR (0.9-1.1) VBG pH (7.36-7.41) VBG pCO2 (38-50) mmHg VBG pO2 mmHg VBG HCO3 mmol/L VBG O2 Saturation % VBG Base Excess mEq/L Barometric Pressure mm/Hg Sodium (136-145) mmol/L Potassium (3.5-5.1) mmol/L Chloride (98-107) mmol/L Carbon Dioxide (21-32) mmol/L Anion Gap (3-11) BUN (7-18) mg/dl Creatinine (0.6-1.2) mg/dl Est Cr Clr Drug Dosing Est GFR ( Amer) Est GFR (Non-Af Amer) BUN/Creatinine Ratio (10-20) Glucose (70-99) mg/dl POC Glucose (70-99) Lactate (0.4-2.0) mmol/L Calcium (8.5-10.1) mg/dl Phosphorus (2.5-4.9) mg/dl Magnesium (1.8-2.4) mg/dl Total Bilirubin (0.2-1) mg/dl AST (15-37) U/L ALT (12-78) U/L Alkaline Phosphatase (45-117) U/L Ammonia Cancelled Troponin I (0-0.045) ng/ml Total Protein (6.4-8.2) gm/dl Albumin (3.4-5.0) gm/dl Globulin (2.5-4.0) gm/dl Albumin/Globulin Ratio (0.9-2) Lipase (73-393) U/L TSH (0.300-4.500) uIu/ml Random Cortisol 17.96 mcg/dl Urine Color Yellow Urine Appearance Clear (Clear) Urine pH 5.5 (4.5-7.5) Ur Specific [place] 1.018 (1.000-1.030) Urine Protein Negative (Negative) Urine Glucose (UA) Negative (Negative) Urine Ketones Trace H (Negative) Urine Blood Negative (Negative) Urine Nitrite Negative (Negative) Urine Bilirubin Negative (Negative) Urine Urobilinogen Negative (Negative) Ur Leukocyte Esterase Trace H (Negative) Urine WBC (Auto) 1-5 (0-5) /hpf Urine RBC (Auto) 0-4 (0-4) /hpf U Hyaline Cast (Auto) 0 (0-5) /lpf U Epithel Cells (Auto) >30 H (0-5) /lpf Urine Bacteria (Auto) Negative (Negative) Hepatitis C Ab Screen (Neg) 08/18/19 08/18/19 Range/Units 19:15 20:51 WBC (4.8-10.8) K/uL RBC (4.2-5.4) M/uL Hgb (12.0-16.0) g/dL Hct (37-47) % MCV (80-100) fL MCH (25-34) pg MCHC (32-36) g/dL RDW Std Deviation (36.4-46.3) fL RDW Coeff of Ketan (11.5-14.5) % Plt Count (130-400) K/uL MPV (7.4-10.4) fL Immature Gran % (Auto) % Neut % (Auto) % Lymph % (Auto) % Dawson % (Auto) % Eos % (Auto) % Baso % (Auto) % Immature Gran # (Auto) (0.00-0.02) K/uL Neut # (Auto) (1.4-6.5) K/uL Lymph # (Auto) (1.2-3.4) K/uL Dawson # (Auto) (0.11-0.59) K/uL Eos # (Auto) (0-0.5) K/uL Baso # (Auto) (0-0.2) K/uL Platelet Estimate (Normal) PT (9.0-12.0) Seconds INR (0.9-1.1) VBG pH 7.34 L (7.36-7.41) VBG pCO2 49 (38-50) mmHg VBG pO2 69 mmHg VBG HCO3 26 mmol/L VBG O2 Saturation 93.4 % VBG Base Excess -0.8 mEq/L Barometric Pressure 736.2 mm/Hg Sodium (136-145) mmol/L Potassium (3.5-5.1) mmol/L Chloride (98-107) mmol/L Carbon Dioxide (21-32) mmol/L Anion Gap (3-11) BUN (7-18) mg/dl Creatinine (0.6-1.2) mg/dl Est Cr Clr Drug Dosing Est GFR ( Amer) Est GFR (Non-Af Amer) BUN/Creatinine Ratio (10-20) Glucose (70-99) mg/dl POC Glucose (70-99) Lactate (0.4-2.0) mmol/L Calcium (8.5-10.1) mg/dl Phosphorus (2.5-4.9) mg/dl Magnesium (1.8-2.4) mg/dl Total Bilirubin (0.2-1) mg/dl AST (15-37) U/L ALT (12-78) U/L Alkaline Phosphatase (45-117) U/L Ammonia 24.4 Troponin I (0-0.045) ng/ml Total Protein (6.4-8.2) gm/dl Albumin (3.4-5.0) gm/dl Globulin (2.5-4.0) gm/dl Albumin/Globulin Ratio (0.9-2) Lipase (73-393) U/L TSH (0.300-4.500) uIu/ml Random Cortisol mcg/dl Urine Color Urine Appearance (Clear) Urine pH (4.5-7.5) Ur Specific [place] (1.000-1.030) Urine Protein (Negative) Urine Glucose (UA) (Negative) Urine Ketones (Negative) Urine Blood (Negative) Urine Nitrite (Negative) Urine Bilirubin (Negative) Urine Urobilinogen (Negative) Ur Leukocyte Esterase (Negative) Urine WBC (Auto) (0-5) /hpf Urine RBC (Auto) (0-4) /hpf U Hyaline Cast (Auto) (0-5) /lpf U Epithel Cells (Auto) (0-5) /lpf Urine Bacteria (Auto) (Negative) Hepatitis C Ab Screen (Neg) Imaging Data Radiologist's Impression: Radiology results as stated below per my review and the radiologist's interpretation: XR chest 1V portable CLINICAL HISTORY: 58 years-old Female presenting with ams, weakness. TECHNIQUE: Portable upright AP view of the chest was obtained. COMPARISON: None. FINDINGS: Borderline cardiac silhouette enlargement. No focal opacity. No large effusion or pneumothorax. Osseous structures normal. Upper abdomen normal. IMPRESSION: 1. Borderline cardiomegaly. No other convincing evidence of acute cardiopulmonary disease. Electronically signed by: Abelino Vyas M.D. 08/18/2019 7:[address] head/brain wo con CLINICAL HISTORY: 58 years-old Female presenting with weakness, ams. TECHNIQUE: Multidetector CT imaging of the head was performed without the use of intravenous contrast. IV contrast: None. One or more dose lowering techniques were used consistent with the principles of ALARA (as low as reasonably achievab le), including automatic exposure control, mA or kV adjustment to individual patient size, and/or use of iterative reconstruction. COMPARISON: None. CT DOSE (mGy.cm): The estimated cumulative dose is 919.77. FINDINGS: Slate Picker topogram: Unremarkable. Ventricles and sulci normal in size. No hemorrhage. Cerebellar atrophy. Brain parenchyma otherwise normal in appearance with preserved conteh-white d ifferentiation. No acute territorial infarct. No mass effect or midline shift. No extra-axial fluid collection. Paranasal sinuses and mastoid air cells clear. Osseous lesion expanding the outer table of the calvarium in the left frontal region. There is a separate lesion noted immediately inferior to this in the medullary space measuring 16 mm. IMPRESSION: 1. 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 2. No acute intracranial abnormality. 3. Indeterminate osseous lesions in the left frontal bone. Please ensure the absence of a known malignancy. These may be chronic and could represent chondroma as are hemangiomas among other possible considerations both benign and malignant. Correlate clinically. Consider follow-up if these are new or of uncertain chronicity. Electronically signed by: Abelino Vyas M.D. 08/18/2019 7:[address] cervical spine wo con CLINICAL HISTORY: 58 years-old Female presenting with ams. TECHNIQUE: Multidetector CT of the cervical spine was performed without the use of intravenous contrast. IV contrast: None. One or more dose lowering techniques were used consistent with the principles of ALARA (as low as reasonably achievable), including automatic exposure control, mA or kV adjustment to individual patient size, and/or use of iterative reconstruction. COMPARISON: None. CT DOSE (mGy.cm): The estimated cumulative dose is 919.77 mGy.cm. FINDINGS: Slate Picker topogram: Unremarkable. Straightening of normal cervical lordosis likely due to multilevel degenerative changes. Heterogeneous appearance of bone marrow. Mild compression deformity with a possible fracture of the anterior superior corner of T1. This is also noted to a lesser degree at T2. No additional fracture is evident in the cervical spine. Remainder of the vertebral bodies maintain normal height and alignment. Disc osteophyte complexes noted to varying degrees at every level with very degrees of intervertebral disc height loss. There are degrees of osseous neural foraminal narrowing. Skull base intact. Mild degenerative changes of the atlantodental articulation. IMPRESSION: 1. Mild compression fracture of T1, which may be acute including an anterior superior corner fracture. Similar though less severe findings at T2. 2. No acute osseous injury of the cervical spine. 3. Multilevel degenerative changes. 4. Heterogeneity of bone marrow could suggest underlying osteopenia or marrow replacing process. Presumably the patient does not have a history of malignancy. Electronically signed by: Abelino Vyas M.D. 08/18/2019 7:08 PM ECG Data Attestation: I personally reviewed and interpreted this ECG as follows: Indication: + altered mental status Rate (beats per minute): 51 Rhythm: + sinus bradycardia ECG [place]: + Normal ECG ST segments: no ST depression and no ST elevation ECG Findings: no PVCs Blood Pressure Blood Pressure Findings: Normal blood pressure Blood Pressure Disposition: further management by hospitalist [facility] Narrative Patient is a 58-year-old female reported history of alcoholism evidently found wandering outside last night by family. Brought in side. Family reports that she is been altered and not acting normal all day. No clear last known well. No reported trauma here. Patient presents hypothermic and bradycardic. Rectal temperature of 32 Celsius. Warming blanket applied. Patient nonverbal for my exam will look around and occasionally nods and answers questions. No facial droop. Again moving all extremities. Concern for possible metabolic versus infectious encephalopathy versus trauma given her alcohol history. Given intravenous thiamine and fluids. Again warming was initiated. Cultures and lactate were sent. CT the head and cervical spine were complete although again there is no clear history of trauma and no significant evidence of trauma with her alcoholism and her altered mental status have some concern. CTs without significant traumatic injury of the head or cervical spine. A T1 and T2 compression fracture were noted. Patient does not appear significantly symptomatic at this time from these. Chest x-ray is obtained. Urinalysis was sent as well. Ammonia was sent. VBG was sent to look for signs of acidosis/hypercarbia. Patient appears to be in a sinus bradycardia. Question if temperature related. Electrolytes completed with lab work. Patient's brother later calls in to confirm she has a history of Warnicke's encephalopathy. Seems consistent with presentation although it seems like she is worsened. Given this discussed with the [facility] hospitalist for admission for further evaluation. Already received thiamine here. Patient was able to verbalize slightly on later reevaluation and stated her name and that I was wearing a watch. Discharge Plan Visit Data *Final* Discharge Date/Time: 08/18/19 22:01 Chief Complaint: Illness Stated Complaint: CONFUSION, NEURO SX ED Provider: Arthur Neal Discharge Problem: AMS (altered mental status), Wernicke encephalopathy, Hypothermia Patient Disposition: Admitted As Inpatient Discharge Instructions Interventions: ED Discharge Assessment Last Done: 08/18/19 22:01 Discharge Problem: AMS (altered mental status) Qualifiers: Altered mental status type: unspecified Qualified Code(s): R41.82 - Altered m ental status, unspecified Hypothermia Qualifiers: Encounter type: initial encounter Qualified Code(s): T68.XXXA - Hypothermia, initial encounter The scribe's documentation has been prepared under my direction and personally reviewed by me in its entirety. I confirm that the note above accurately ref lects all work, treatment, procedures, and medical decision making performed by me.
[2019-08-19 01:47] LABS: Amphetamines+Metham, Urine Neg (Neg); Barbiturates, Urine Neg (Neg); Benzodiazepine, Urine Neg (Neg); Cocaine, Urine Neg (Neg); MDMA (Ecstacy), Urine Neg (Neg); Methadone, Urine Neg (Neg); Opiate, Urine Neg (Neg); Phencyclidine, Urine Neg (Neg)
[2019-08-19] MEDS: LACTATED RINGER'S 1,000 ML IV SCH ×3 (04:31→18:43)
[2019-08-19 05:27] LABS: Hematocrit (blood only) 47.5 % (37-47); Hemoglobin 16.6 g/dL (12.0-16.0); Mean Corpuscular Hemoglobin 32.4 pg (25-34); Mean Corpuscular Hgb Conc 34.9 g/dL (32-36); Mean Corpuscular Volume 92.8 fL (80-100); Mean Platelet Volume 11.8 fL (7.4-10.4); Nucleated RBC # (auto) 0.03 K/uL (0-0); Nucleated RBC % (auto) 0.3 %; Platelet Count 96 K/uL (130-400); RDW Coefficient of Variation 14.3 % (11.5-14.5); RDW Standard Deviation 48.8 fL (36.4-46.3); Red Blood Count 5.12 M/uL (4.2-5.4); White Blood Count 8.98 K/uL (4.8-10.8)
[2019-08-19 06:19] LABS: BUN Creatinine Ratio 39.1 (10-20); Calcium 9.2 mg/dl (8.5-10.1); Creatinine Clr Calc Pharmacy 128.4 ml/min; Est GFR (African American) 127.1; Est GFR (Non-African American) 109.6
[2019-08-19 06:30] LABS: Estimated Average Glucose 140 mg/dl; Hemoglobin A1C 6.5 % (4.5-5.6)
[2019-08-19] MEDS: CEFEPIME 1,000 MG in SYRINGE 0 ML IV SCH ×3 (07:29→22:35)
[2019-08-19] MEDS: NICOTINE 14 MG/24 HR PATCH TD SCH (08:03)
[2019-08-19] MEDS: FOLIC ACID 1 MG TAB PO SCH (08:03)
[2019-08-19] MEDS: MULTIVITAMIN TAB PO SCH (08:03)
--- NOTE | 2019-08-19 16:50 | Hospitalist Progress Note ---
Date of Service August 19, 2019 Assessment & Plan (1) Hypothermia: possible due to infection -In the ED, found to be hypothermic at 32 C; was also initially bradycardic, HR improving -TSH elevatated , ordered for levothyroxine , check Free t4 -cont [place] (2) Alcoholism: (3) Wernicke encephalopathy: -Per patient's brother, she drinks 4-5 beers/day -Also history of known Wernicke encephalopathy -Received banana bag in the ED -Alcohol withdrawal protocol with Librium, PRN Ativan -P.o. thiamine, multivitamin, folic acid (4) Abdominal pain: - pancreatitis, lipase 600; likely chronic pancreatitis secondary to alcohol use lipase level improved diet advanced to clears follow labs (5) Brain lesion: -CT head showing indeterminate osseous lesions in the left frontal bone question possible malignancy -Brain MRI ordered (6) Hyperglycemia: -Random glucose 216 developed hypoglycemia added Dexrose to LR (7) Thrombocytopenia: -No signs of bleeding -Likely secondary to chronic alcohol use/alcoholic (8) DVT prophylaxis: -SCDs due to thrombocytopenia patient's brother Hiram [phone] who she is currently staying with. Patient primarily lives with her other brother Navarro [phone].-given update at baseline DISPOSITION : monitor in tele concern for alcohol withdrawl needs PT/OT eval SNF if needed Subjective pt sitting up on bed very slow to respond to questions able to tell her name and ( needed que for month and year ) thinks that she is in [place] Temp 36.4 on [place]a pt's Brother Navarro Veliz present at bedside -updated Physical Exam Constitutional: + ill appearing; no acute distress Eyes: + anicteric sclerae ENMT: external ear and nose normal, oropharynx normal Neck: trachea midline, no thyromegaly Respiratory: normal respiratory effort, lungs clear to auscultation Cardiovascular: RRR, no murmur, no edema Gastrointestinal (Abdomen): Percussion/Palpation: abdomen soft; abdomen nontender Neurologic: PERRL, EOMI, accommodation nl, no face palsy, no dysarthria moves all extremities very slow to response , baseline dementia /alcoholic encephalopathy Psychiatric: Orientation: alert; + not oriented x 3 Affect: + flat affect Results & Data Vital Signs (Past 12 Hours) Vital Signs Temp Pulse Resp BP Pulse Ox 08/19/19 16:16 36.4 C L 61 18 113/67 95 08/19/19 11:01 36.3 C L 72 19 113/64 94 08/19/19 07:30 36.7 C 79 20 121/67 94 08/19/19 06:04 36.7 C (1) Hypothermia Encounter type: initial encounter Qualified Code(s): T68.XXXA - Hypothermia, initial encounter
[2019-08-19] MEDS ORDERED: Nursing to Pharmacy Communication ONE (17:48)
[2019-08-19] MEDS: D5W AND LACTATED RINGERS 1,000 ML IV SCH (20:29)
[2019-08-20] MEDS: D5W AND LACTATED RINGERS 1,000 ML IV SCH (05:13)
[2019-08-20] MEDS: LEVOTHYROXINE SODIUM 50 MCG TABLET PO SCH (05:14)
[2019-08-20 07:21] LABS: Albumin Level 2.7 gm/dl (3.4-5.0); BUN Creatinine Ratio 12.5 (10-20); Calcium 9.4 mg/dl (8.5-10.1); Creatinine Clr Calc Pharmacy 102.3 ml/min; Est GFR (African American) 117.9; Est GFR (Non-African American) 101.7; Potassium 3.5 mmol/L (3.5-5.1)
[2019-08-20 07:26] LABS: Albumin Globulin Ratio 0.8 (0.9-2); Bilirubin,Total 0.5 mg/dl (0.2-1); Globulin 3.3 gm/dl (2.5-4.0); T4 Free Thyroxine 0.95 ng/dl (0.8-1.6)
[2019-08-20] MEDS: NICOTINE 14 MG/24 HR PATCH TD SCH (08:06)
[2019-08-20] MEDS: chlordiazePOXIDE HCl 25 MG CAP PO SCH ×2 (08:06→15:53)
[2019-08-20] MEDS: THIAMINE HCL 100 MG TAB PO SCH (08:06)
[2019-08-20] MEDS: FOLIC ACID 1 MG TAB PO SCH (08:06)
[2019-08-20] MEDS: MULTIVITAMIN TAB PO SCH (08:06)
[2019-08-20] MEDS: CEFEPIME 1,000 MG in SYRINGE 0 ML IV SCH ×2 (08:10→15:26)
[2019-08-20] MEDS: INSULIN ASPART 100 UNITS/ML 3 ML PEN SC SCH ×4 (08:11→21:22)
--- NOTE | 2019-08-20 14:12 | Hospitalist Progress Note ---
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 thiamine, multivitamin, folic acid (4) Abdominal pain: -possible due to alcoholic pancreatitis, resolved ,no complain of nausea or vomiting , no abdominal pain Lipase level normalized today diet advanced to low fat -tolerating well (5) Brain lesion: -CT head showing indeterminate osseous lesions in the left frontal bone question possible malignancy -Brain MRI ordered (6) DVT prophylaxis: -SCDs due to thrombocytopenia patient's brother Hiram [phone] who she is currently staying with. Patient primarily lives with her other brother Winsome [phone].-given update at Bedside DISPOSITION : appreciate input from PT/OT recommends rehab CM updated Pt's Brother ( POA) WINSOME Veliz is ok with any local facilities that will accept her insurance pt received speech therapy at [facility] ( [facility] ) in past -given past experience : [facility] would be the ist preference Subjective Patient appears to be more awake and alert today, sitting up on chair, Brother Winsome Veliz present at bedside Diet advanced to low fat, finishing lunch Temperature back to normal 36.9, no cough no shortness of breath no hypoxia Less confusion noted, able to answer questions-slow to respond(which is her baseline as per brother) Telemetry reviewed, no arrhythmia, no tachycardia vitals been stable no sign of alcohol withdrawal Patient is stable to be transferred to medical floor PT OT evaluation noted, patient will need skilled rehab Briefly discussed option for skilled rehab with Physical Exam Constitutional: + ill appearing; no acute distress Eyes: + anicteric sclerae ENMT: external ear and nose normal, oropharynx normal Neck: trachea midline, no thyromegaly Respiratory: normal respiratory effort, lungs clear to auscultation Cardiovascular: RRR, no murmur, no edema Gastrointestinal (Abdomen): Percussion/Palpation: abdomen soft; abdomen nontender Musculoskeletal: no cyanosis or clubbing, extremities motor strength 5/5 Neurologic: PERRL, EOMI, accommodation nl, no face palsy, no dysarthria moves all extremities Psychiatric: Orientation: alert; + not oriented x 3 Affect: + flat affect Results & Data Vital Signs (Past 12 Hours) Vital Signs Temp Pulse Pulse Resp BP Pulse Ox 08/20/19 12:01 36.9 C 72 18 131/63 96 08/20/19 08:18 36.7 C 69 18 124/69 95 08/20/19 08:00 66 08/20/19 03:07 36.7 C 67 18 102/57 L 93 08/20/19 02:48 68 (1) Hypothermia Encounter type: initial encounter Qualified Code(s): T68.XXXA - Hypothermia, initial encounter
[2019-08-20] MEDS ORDERED: GADOBUTROL 65ML VIAL IV PRN (16:20)
--- NOTE | 2019-08-20 16:41 | Magnetic Resonance Report ---
Brain MRI WITH AND WITHOUT CONTRAST HISTORY: altered mental status, f/u left frontal bone lesion TECHNIQUE: Multiplanar multisequence MRI of the brain was performed both before and after the intrave nous administration of contrast. COMPARISON STUDY: Head CT 08/18/2019. FINDINGS: No areas of restricted diffusion to suggest acute infarction. The midline structures are in tact. Motion artifact. A single punctate focus of T2 hyperintensity within the periventricular white matter the right frontal lobe. This is nonspecific but favors a focus of microvascular ischemic rodríguez e. Otherwise, there is a normal signal intensity seen throughout the brain with no evidence for intra cranial mass, hematoma, or midline shift. The ventricles and sulci are within normal limits for age. The paranasal sinuses and mastoid air cells are clear. The major vascular flow-voids at the skull bas e are well-maintained. There is 9 mm partially enhancing mass within the left orbit near the apex. Th is abuts but does not severely displace the optic nerve. Mild cerebellar atrophy is noted. Redemonstr ation of the 2 left frontal bone lesions. These are T2 hyperintense, T1 hypointense and demonstrate e nhancement. These lesions measure 1.6 and 1.4 cm in size. No intracranial extension. IMPRESSION: 1. Redemonstration of the left frontal bone lesions measuring 1.6 and 1.4 cm. These are technically i ndeterminate but could represent benign atypical hemangioma or malignant lesions. No evidence for int racranial extension. Consider biopsy or comparison to old studies for further evaluation. 2. There is also a 9 mm lobular lesion within the left orbital apex which abuts but does not displace the optic nerve. This is also indeterminate but favors a meningioma. Electronically signed by: Chris Obrien M.D. 08/20/2019 4:39 PM
[2019-08-21] MEDS: LEVOTHYROXINE SODIUM 50 MCG TABLET PO SCH (05:50)
[2019-08-21] MEDS: MULTIVITAMIN TAB PO SCH (07:39)
[2019-08-21] MEDS: FOLIC ACID 1 MG TAB PO SCH (07:39)
[2019-08-21] MEDS: THIAMINE HCL 100 MG TAB PO SCH (07:40)
[2019-08-21] MEDS: NICOTINE 14 MG/24 HR PATCH TD SCH (07:40)
[2019-08-21] MEDS: INSULIN ASPART 100 UNITS/ML 3 ML PEN SC SCH ×4 (08:49→20:40)
--- NOTE | 2019-08-21 15:56 | Hospitalist Progress Note ---
Date of Service August 21, 2019 Assessment & Plan (1) Metabolic encephalopathy: Pt noted to be more slow cognition , slow to response today check Ammonia level , UA to r/o infection , UTI cont to monitor (2) Hypothermia: resolved, Temp has been normal -In the ED, found to be hypothermic at 32 C; was also initially bradycardic, -TSH elevated , ordered for levothyroxine , Free T4 wnl possible sick euthryroid syndrome repeat TSH in 4-6 weeks - (3) Alcoholism: long-term heavy alcoholic since she was in college -Per patient's brother, she drinks 4-5 beers/day Dx with Warnekes encephalopathy few yrs back lives with family , pt was started on ETOH withdraw per AWSS protocol no sign of tremor , or withdrawal scheduled dose of Librium D/rozina -as pt noted to be more lethargic (4) Wernicke encephalopathy: -due to long-term/heavy alcohol 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 thiamine, multivitamin, folic acid no signof ETOH withdrawl (5) Abdominal pain: resolved ,no complain of nausea or vomiting , no abdominal pain -possible due to alcoholic pancreatitis, Lipase level normalized has been tolerating low fat diet (6) Brain lesion: -CT head showing indeterminate osseous lesions in the left frontal bone question possible malignancy -Brain MRI : 1. Redemonstration of the left frontal bone lesions measuring 1.6 and 1.4 cm. These are technically indeterminate but could represent benign atypical hemangioma or malignant lesions. No evidence for intracranial extension. Consider biopsy or comparison to old studies for further evaluation. 2. There is also a 9 mm lobular lesion within the left orbital apex which abuts but does not displace the optic nerve. This is also indeterminate but favors a meningioma. given pt's lack of symptom -no headache , stable vitals invasive procedure - Biopsy of brain may not be appropriate repeat MRI in 10-12 months for surveillance would be appropriate will update the family (7) DVT prophylaxis: -SCDs due to thrombocytopenia patient's brother Hiram [phone] who she is currently staying with. Patient primarily lives with her other brother Navarro [phone].-given update at Bedside DISPOSITION : appreciate input from PT/OT recommends rehab referral made to [facility] , awating insurance approval Subjective Patient seen at bedside in room 4532 Sitting up on bed, Per nursing patient had finished breakfast, lunch without any discomfort, no nausea vomiting, no abdominal pain has not complaint of any other issues Pt appears to be more confused today unable to answer questions , voice is very soft , mostly mumbling which is a change from yesterday no fever to chills vitals stable will order for ammonia level , check UA cont to monitor ,observe fall precaution no evidence of focal deficit , no facial droop , weakness of any extremity at baseline pt is very slow to response due to her encephalopathy -worsening of cognition today spoke with Pt's Brother Navarro over phone : he also voiced concern that pt appears to be declined compared to yesterday( was more to her baseline , answering questions appropriately Physical Exam Constitutional: + ill appearing; no acute distress Eyes: + anicteric sclerae ENMT: external ear and nose normal, oropharynx normal Neck: trachea midline, no thyromegaly Respiratory: normal respiratory effort, lungs clear to auscultation Cardiovascular: RRR, no murmur, no edema Gastrointestinal (Abdomen): Percussion/Palpation: abdomen soft; abdomen nontender Musculoskeletal: no cyanosis or clubbing, extremities motor strength 5/5 Neurologic: PERRL, EOMI, accommodation nl, no face palsy, no dysarthria moves all extremities Psychiatric: Orientation: alert; + not oriented x 3 Eye Contact: + fair eye contact Motor Behavior: n tremor Speech: + abnormal rate/rhythm/volume of speech Affect: + flat affect Cognition: + attention not intact and + language not intact unable to follow commands , blank stares , mumbling words Results & Data Vital Signs (Past 12 Hours) Vital Signs Temp Pulse Resp BP BP Pulse Ox 08/21/19 15:26 36.8 C 47 L 16 152/84 H 97 08/21/19 06:55 82 19 142/82 H 93 (1) Hypothermia Encounter type: initial encounter Qualified Code(s): T68.XXXA - Hypothermia, initial encounter (2) Abdominal pain Abdominal location: unspecified location Qualified Code(s): R10.9 - Unspecified abdominal pain
[2019-08-21 18:16] LABS: Appearance Urine Clear (Clear); Bacteria Urine Automated Negative (Negative); Bilirubin Urine Negative (Negative); Blood Urine 1+ (Negative); Cast Urine Automated 0 /lpf (0-5); Color Urine Yellow; Glucose Urine UA Negative (Negative); Ketones Urine Negative (Negative); Leukocyte Esterase Urine 2+ (Negative); Nitrite Urine Negative (Negative); Protein Urine Negative (Negative); Urobilinogen Urine Negative (Negative); WBC Urine Automated 0 /hpf (0-5)
[2019-08-21] MEDS ORDERED: chlordiazePOXIDE HCl 5 MG CAP PO SCH (23:00)
[2019-08-22 06:09] LABS: Hematocrit (blood only) 48.9 % (37-47); Hemoglobin 17.5 g/dL (12.0-16.0); Mean Corpuscular Hemoglobin 32.5 pg (25-34); Mean Corpuscular Hgb Conc 35.8 g/dL (32-36); Mean Corpuscular Volume 90.7 fL (80-100); Nucleated RBC # (auto) 0.03 K/uL (0-0); Nucleated RBC % (auto) 0.5 %; RDW Coefficient of Variation 14.7 % (11.5-14.5); RDW Standard Deviation 49.2 fL (36.4-46.3); Red Blood Count 5.39 M/uL (4.2-5.4); White Blood Count 7.25 K/uL (4.8-10.8)
[2019-08-22 06:10] LABS: Mean Platelet Volume 10.7 fL (7.4-10.4); Platelet Count 60 K/uL (130-400)
[2019-08-22] MEDS: LEVOTHYROXINE SODIUM 50 MCG TABLET PO SCH (06:35)
[2019-08-22 06:54] LABS: Albumin Level 3.2 gm/dl (3.4-5.0); Calcium 10.1 mg/dl (8.5-10.1); Creatinine Clr Calc Pharmacy 91.5 ml/min; Est GFR (African American) 113.7; Est GFR (Non-African American) 98.1
[2019-08-22 06:57] LABS: Albumin Globulin Ratio 0.8 (0.9-2); Bilirubin,Total 0.6 mg/dl (0.2-1); Globulin 3.9 gm/dl (2.5-4.0); Total Protein 7.1 gm/dl (6.4-8.2)
[2019-08-22 07:06] LABS: Basophils # (auto) 0.01 K/uL (0-0.2); Basophils % (auto) 0.1 %; Eosinophils # (auto) 0.05 K/uL (0-0.5); Eosinophils % (auto) 0.7 %; Immature Granulocytes # (auto) 0.03 K/uL (0.00-0.02); Immature Granulocytes % (auto) 0.4 %; Lymphocytes # (auto) 1.15 K/uL (1.2-3.4); Lymphocytes % (auto) 15.9 %; Monocytes % (auto) 9.7 %; Neutrophils # (auto) 5.31 K/uL (1.4-6.5); Neutrophils % (auto) 73.2 %
[2019-08-22] MEDS: THIAMINE HCL 100 MG TAB PO SCH (07:46)
[2019-08-22] MEDS: MULTIVITAMIN TAB PO SCH (07:46)
[2019-08-22] MEDS: FOLIC ACID 1 MG TAB PO SCH (07:46)
[2019-08-22] MEDS: NICOTINE 14 MG/24 HR PATCH TD SCH (07:46)
[2019-08-22] MEDS: INSULIN ASPART 100 UNITS/ML 3 ML PEN SC SCH ×4 (08:55→21:05)
--- NOTE | 2019-08-22 16:01 | Hospitalist Progress Note ---
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 thiamine, multivitamin, folic acid (5) Abdominal pain: resolved ,no complain of nausea or vomiting , no abdominal pain -possible due to alcoholic pancreatitis, Lipase level normalized has been tolerating low fat diet (6) Brain lesion: -CT head showing indeterminate osseous lesions in the left frontal bone question possible malignancy -Brain MRI : 1. Redemonstration of the left frontal bone lesions measuring 1.6 and 1.4 cm. These are technically indeterminate but could represent benign atypical hemangioma or malignant lesions. No evidence for intracranial extension. Consider biopsy or comparison to old studies for further evaluation. 2. There is also a 9 mm lobular lesion within the left orbital apex which abuts but does not displace the optic nerve. This is also indeterminate but favors a meningioma. given pt's lack of symptom -no headache , stable vitals invasive procedure - Biopsy of brain may not be appropriate repeat MRI in 10-12 months for surveillance would be appropriate (7) DVT prophylaxis: -SCDs due to thrombocytopenia patient's brother Hiram [phone] who she is currently staying with. Patient primarily lives with her other brother Navarro [phone].-given update at Bedside DISPOSITION : appreciate input from PT/OT recommends rehab referral made to [facility] will need a peer to peer review for insurance approval Subjective offers no new complain episode of hypothermia noted last night requiring [place] Hugger Physical Exam Constitutional: + ill appearing; no acute distress Eyes: + anicteric sclerae ENMT: external ear and nose normal, oropharynx normal Neck: trachea midline, no thyromegaly Respiratory: normal respiratory effort, lungs clear to auscultation Cardiovascular: RRR, no murmur, no edema Gastrointestinal (Abdomen): Percussion/Palpation: abdomen soft; abdomen nontender Musculoskeletal: no cyanosis or clubbing, extremities motor strength 5/5 Neurologic: PERRL, EOMI, accommodation nl, no face palsy, no dysarthria moves all extremities Psychiatric: Orientation: alert; + not oriented x 3 Eye Contact: + fair eye contact Motor Behavior: n tremor Speech: + abnormal rate/rhythm/volume of speech Affect: + flat affect Cognition: + attention not intact and + language not intact Results & Data Vital Signs (Past 12 Hours) Vital Signs Temp Pulse Resp BP Pulse Ox 08/22/19 15:48 36.9 C 67 20 110/66 93 08/22/19 12:20 37.4 C 08/22/19 12:15 37.4 C 08/22/19 09:00 36.9 C 08/22/19 07:15 36.9 C 101 H 18 124/74 90 (1) Hypothermia Encounter type: initial encounter Qualified Code(s): T68.XXXA - Hypothermia, initial encounter (2) Abdominal pain Abdominal location: unspecified location Qualified Code(s): R10.9 - Unspecified abdominal pain
[2019-08-23] MEDS: LEVOTHYROXINE SODIUM 50 MCG TABLET PO SCH (06:51)
[2019-08-23] MEDS: MULTIVITAMIN TAB PO SCH (07:53)
[2019-08-23] MEDS: THIAMINE HCL 100 MG TAB PO SCH (07:53)
[2019-08-23] MEDS: NICOTINE 14 MG/24 HR PATCH TD SCH (07:54)
[2019-08-23] MEDS: INSULIN ASPART 100 UNITS/ML 3 ML PEN SC SCH ×4 (09:16→20:46)
[2019-08-23] MEDS: FOLIC ACID 1 MG TAB PO SCH (10:24)
--- NOTE | 2019-08-23 11:43 | Hospitalist Progress Note ---
Date of Service August 23, 2019 Assessment & Plan (1) Metabolic encephalopathy: baseline dementia ammonia level -nl UA -negative , no white count elevation , no sign of dehydration or electrolyte abnormality (2) Hypothermia: not sure of the etiology : having intermittent episodes , mostly at night no sign of infection or sepsis /UA negative , normal white cell count clinically asymptomatic no lethargy , altered mental status noted -In the ED, found to be hypothermic at 32 C; was also initially bradycardic, -TSH elevated > 6 , Free T4 will increase Levothyroxine dose to 75 mcg daily ( 1mg/kg-bwt) repeat TSH in 4-6 weeks - (3) Alcoholism: 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 thiamine, multivitamin, folic acid (5) Abdominal pain: resolved ,no complain of nausea or vomiting , no abdominal pain -possible due to alcoholic pancreatitis, Lipase level normalized has been tolerating low fat diet (6) Brain lesion: -CT head showing indeterminate osseous lesions in the left frontal bone question possible malignancy -Brain MRI : 1. Redemonstration of the left frontal bone lesions measuring 1.6 and 1.4 cm. These are technically indeterminate but could represent benign atypical hemangioma or malignant lesions. No evidence for intracranial extension. Consider biopsy or comparison to old studies for further evaluation. 2. There is also a 9 mm lobular lesion within the left orbital apex which abuts but does not displace the optic nerve. This is also indeterminate but favors a meningioma. given pt's lack of symptom -no headache , stable vitals invasive procedure - Biopsy of brain may not be appropriate repeat MRI in 10-12 months for surveillance would be appropriate pts brother updated (7) DVT prophylaxis: -SCDs due to thrombocytopenia patient's brother Hiram [phone] who she is currently staying with. Patient primarily lives with her other brother AnivalPOA ) [phone].- DISPOSITION : appreciate input from PT/OT recommends rehab pt will benefit with SNF ( low intensity rehab <2 hr/day therapy ) than acute rehab /[facility] ( high intensity-3hrs /day therapy ) referral made to [facility] will be to SNF possible tomorrow if insurance auth is available will need transport arrangements Appreciate input from social service Subjective awake and alert offers no complain on [place] Hugger -as noted Temp was 36.2 clinically no evidence of hypothermia , no evidence of infection or electrolyte imbalance ordered to check rectal temp ( core temp ) to confirm hypothermic temp reading Physical Exam Constitutional: + ill appearing; no acute distress Eyes: + anicteric sclerae ENMT: external ear and nose normal, oropharynx normal Neck: trachea midline, no thyromegaly Respiratory: normal respiratory effort, lungs clear to auscultation Cardiovascular: RRR, no murmur, no edema Gastrointestinal (Abdomen): Percussion/Palpation: abdomen soft; abdomen nontender Musculoskeletal: no cyanosis or clubbing, extremities motor strength 5/5 Neurologic: PERRL, EOMI, accommodation nl, no face palsy, no dysarthria moves all extremities Psychiatric: Orientation: alert; + not oriented x 3 Eye Contact: + fair eye contact Motor Behavior: n tremor Speech: + abnormal rate/rhythm/volume of speech Affect: + flat affect Cognition: + attention not intact and + language not intact Results & Data Vital Signs (Past 12 Hours) Vital Signs Temp Pulse Resp BP Pulse Ox 08/23/19 10:26 36.2 C L 08/23/19 10:15 36.4 C L 08/23/19 10:00 36.4 C L 08/23/19 09:00 35.9 C L 08/23/19 08:00 35.6 C L 08/23/19 07:30 35.5 C L 08/23/19 07:09 58 L 18 114/73 92 08/23/19 04:00 36.5 C 08/23/19 03:30 36.3 C L 08/23/19 03:00 36.4 C L 08/23/19 02:20 36.5 C 08/23/19 01:48 36.5 C 08/23/19 01:16 36.3 C L 08/23/19 00:40 34.8 C L 08/23/19 00:08 34.8 C L (1) Hypothermia Encounter type: initial encounter Qualified Code(s): T68.XXXA - Hypothermia, initial encounter (2) Abdominal pain Abdominal location: unspecified location Qualified Code(s): R10.9 - Unspecified abdominal pain
[2019-08-23] MEDS ORDERED: LEVOTHYROXINE SODIUM 25 MCG TABLET PO ONE (11:58)
[2019-08-24] MEDS: LEVOTHYROXINE SODIUM 75 MCG TABLET PO SCH (06:16)
[2019-08-24] MEDS: INSULIN ASPART 100 UNITS/ML 3 ML PEN SC SCH ×4 (08:53→20:39)
[2019-08-24] MEDS: FOLIC ACID 1 MG TAB PO SCH (08:54)
[2019-08-24] MEDS: THIAMINE HCL 100 MG TAB PO SCH (08:55)
[2019-08-24] MEDS: MULTIVITAMIN TAB PO SCH (08:55)
[2019-08-24] MEDS: NICOTINE 14 MG/24 HR PATCH TD SCH (08:55)
--- NOTE | 2019-08-24 17:55 | Hospitalist Progress Note ---
Date of Service August 24, 2019 Assessment & Plan (1) Metabolic encephalopathy: baseline dementia ammonia level -nl UA -negative , no white count elevation , no sign of dehydration or electrolyte abnormality (2) Hypothermia: not sure of the etiology : having intermittent episodes , mostly at night no sign of infection or sepsis /UA negative , normal white cell count clinically asymptomatic no lethargy , altered mental status noted -In the ED, found to be hypothermic at 32 C; was also initially bradycardic, temp normalized ,HR remains in low 60's possible due to hypothyroidism ? 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 -Per patient's brother, she drinks 4-5 beers/day Dx with Warnekes encephalopathy few yrs back lives with family , no sign of tremor , or withdrawal all sedatives and BDZ d/rozina (4) Wernicke encephalopathy: -due to superintendent container terminal/heavy alcohol abuse - history of known Wernicke encephalopathy lives with Brother -at baseline pt is very slow to response , very poor short term memory , has been independent in her ADL's -Received banana bag in the ED mental status improved to baseline -pt has chronic gait disturbance , with short term memory loss, at baseline oriented to place and person , with chronic dystarthria -cont P.o. thiamine, multivitamin, folic acid (5) Abdominal pain: resolved ,no complain of nausea or vomiting , no abdominal pain -possible due to alcoholic pancreatitis, Lipase level normalized has been tolerating low fat diet (6) Brain lesion: -CT head showing indeterminate osseous lesions in the left frontal bone question possible malignancy -Brain MRI : 1. Redemonstration of the left frontal bone lesions measuring 1.6 and 1.4 cm. These are technically indeterminate but could represent benign atypical hemangioma or malignant lesions. No evidence for intracranial extension. Consider biopsy or comparison to old studies for further evaluation. 2. There is also a 9 mm lobular lesion within the left orbital apex which abuts but does not displace the optic nerve. This is also indeterminate but favors a meningioma. given pt's lack of symptom -no headache , stable vitals invasive procedure - Biopsy of brain may not be appropriate repeat MRI in 10-12 months for surveillance would be appropriate pts brother updated (7) DVT prophylaxis: -SCDs due to thrombocytopenia patient's brother Hiram [phone] who she is currently staying with. Patient primarily lives with her other brother AnivalPOA ) [phone].- DISPOSITION : appreciate input from PT/OT recommends rehab pt will benefit with SNF referral made to [facility] will be to SNF possible tomorrow if insurance auth is available updated Pt's Brother pt's family will be able to provide transport Subjective sitting up on chair awake and alert and comfortable able to converse offers no complain Physical Exam Constitutional: + ill appearing; no acute distress Eyes: + anicteric sclerae ENMT: external ear and nose normal, oropharynx normal Neck: trachea midline, no thyromegaly Respiratory: normal respiratory effort, lungs clear to auscultation Cardiovascular: RRR, no murmur, no edema Gastrointestinal (Abdomen): Percussion/Palpation: abdomen soft; abdomen no ntender Musculoskeletal: no cyanosis or clubbing, extremities motor strength 5/5 Neurologic: PERRL, EOMI, accommodation nl, no face palsy, no dysarthria moves all extremities Psychiatric: Orientation: alert; + not oriented x 3 Eye Contact: + fair eye contact Motor Behavior: n tremor Speech: + abnormal rate/rhythm/volume of speech Affect: + flat affect Cognition: + attention not intact and + language not intact Results & Data Vital Signs (Past 12 Hours) Vital Signs Temp Pulse Resp BP Pulse Ox 08/24/19 15:53 35.7 C L 08/24/19 15:37 68 18 127/84 96 08/24/19 07:38 36.6 C 62 18 128/74 93 (1) Hypothermia Encounter type: initial encounter Qualified Code(s): T68.XXXA - Hypothermia, initial encounter (2) Abdominal pain Abdominal location: unspecified location Qualified Code(s): R10.9 - Unspecified abdominal pain
[2019-08-25] MEDS: LEVOTHYROXINE SODIUM 75 MCG TABLET PO SCH (06:14)
[2019-08-25] MEDS: FOLIC ACID 1 MG TAB PO SCH (08:48)
[2019-08-25] MEDS: NICOTINE 14 MG/24 HR PATCH TD SCH (08:48)
[2019-08-25] MEDS: THIAMINE HCL 100 MG TAB PO SCH (08:48)
[2019-08-25] MEDS: MULTIVITAMIN TAB PO SCH (08:48)
[2019-08-25] MEDS: INSULIN ASPART 100 UNITS/ML 3 ML PEN SC SCH (09:00)
--- NOTE | 2019-08-25 14:17 | Discharge Summary ---
Date of Service August 25, 2019 Admission HPI Per Admitting Provider 58-year-old female who was brought to the ED via EMS for evaluation of sluggishness. Patient has history of Wernicke encephalopathy and alcoholism. History is somewhat limited from her. I spoke to the patient's brother, Hiram on the phone. He reports that the patient typically lives with their other brother, Navarro, most of the time however he has been out of town for work the past 3 weeks and he she has been staying with Hiram. He reports the patient has history of Wernicke encephalopathy and takes vitamins on a daily basis. He is unsure of exactly what vitamin she is taking but reports she has been taking them recently and has not missed any doses. Patient drinks 4 to 5 cans of beer per day for the past several years. No history of alcohol withdrawal. No reported drug abuse. At the time of our exam, patient is awake and alert. Her speech is soft and somewhat pressured. She reports that she has had an upset stomach the past few days. She denies any other complaints. Upon arrival to the ED, patient was found to be hypothermic at 32 C. She was also bradycardic in the 40s however heart rate has been improving. Labs show hyperglycemia with glucose 216 and mildly elevated AST and ALTs, lipase 600. CXR is negative for acute findings. Head CT is negative for acute intracranial findings however does show possible left frontal osseous bone lesions. Patient was given a banana bag, IVF, IV thiamine. Principal Diagnosis CONFUSION -RESOLVED , CHRONIC ALCOHOL USE /WERNICKE ENCEPHALOPATHY( ALCOHOL INDUCED ENCEPHALOPAHTY) /DEMENTIA -DUE TO CHRONIC ALCOHOL USE Discharge Exam Constitutional WD/WN, vitals as above no acute distress Eyes PERRL, conjunctivae normal, anicteric sclerae ENMT external ear and nose normal, oropharynx normal Neck trachea midline, no thyromegaly Respiratory normal respiratory effort, lungs clear to auscultation Cardiovascular RRR, no murmur, no edema Gastrointestinal (Abdomen) normal bowel sounds, soft, nontender, no hepatosplenomegaly Musculoskeletal no cyanosis or clubbing, extremities motor strength 5/5 Neurologic Speech / Cognition: + abnormal speech (dysarthria -chronic ) Motor/Sensory: no tremor Gait: + ataxic gait Psychiatric Orientation: alert, oriented to person and oriented to place Discharge Data Allergies Allergy/AdvReac Type Severity Reaction Status Date / Time Unable to Assess Allergy Unverified 08/18/19 18:22 Consultations 08/18/19 20:33 ED Decision to Admit Stat 08/18/19 22:47 Consult Case Management - Discharge Planning Routine Ordered Studies 08/18/19 18:32 CT head/brain wo con Stat 08/18/19 18:35 CT cervical spine wo con Stat 08/20/19 01:52 MR brain wo/w con Routine Hospital Course (1) Metabolic encephalopathy: baseline dementia ammonia level -nl UA -negative , no white count elevation , no sign of dehydration or electrolyte abnormality (2) Hypothermia: not sure of the etiology : having intermittent episodes , mostly at night no sign of infection or sepsis /UA negative , normal white cell count clinically asymptomatic no lethargy , altered mental status noted -In the ED, found to be hypothermic at 32 C; was also initially bradycardic, temp normalized ,HR remains in low 60's possible due to hypothyroidism ? 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 -Per patient's brother, she drinks 4-5 beers/day Dx with Warnekes encephalopathy few yrs back lives with family , no sign of tremor , or withdrawal all sedatives and BDZ d/rozina (4) Wernicke encephalopathy: -due to manager intermediate/heavy alcohol abuse - history of known Wernicke encephalopathy lives with Brother -at baseline pt is very slow to response , very poor short term memory , has been independent in her ADL's -Received banana bag in the ED mental status improved to baseline -pt has chronic gait disturbance , with short term memory loss, at baseline oriented to place and person , with chronic dystarthria -cont P.o. thiamine, multivitamin, folic acid (5) Abdominal pain: resolved ,no complain of nausea or vomiting , no abdominal pain -possible due to alcoholic pancreatitis, Lipase level normalized has been tolerating low fat diet (6) Brain lesion: -CT head showing indeterminate osseous lesions in the left frontal bone question possible malignancy -Brain MRI : 1. Redemonstration of the left frontal bone lesions measuring 1.6 and 1.4 cm. These are technically indeterminate but could represent benign atypical hemangioma or malignant lesions. No evidence for intracranial extension. Consider biopsy or comparison to old studies for further evaluation. 2. There is also a 9 mm lobular lesion within the left orbital apex which abuts but does not displace the optic nerve. This is also indeterminate but favors a meningioma. given pt's lack of symptom -no headache , stable vitals invasive procedure - Biopsy of brain may not be appropriate repeat MRI in 10-12 months for surveillance would be appropriate pts brother updated (7) DVT prophylaxis: -SCDs due to thrombocytopenia patient's brother Hiram [phone] who she is currently staying with. Patient primarily lives with her other brother Navarro(POA ) [phone].- DISPOSITION : appreciate input from PT/OT recommends rehab pt will benefit with SNF referral made to [facility] stable to be transferred to rehab today Total Time Total Time Spent Total Time Spent (In Minutes): 35 mi ns Total Time Includes: Examination of the Patient, Discharge Planning and Medication Reconciliation Discharge Plan Discharge Items Patient Disposition: Transfer Retirement Fac Reason For Visit: HYPOTHERMIA,CONFUSION Discharge Diagnosis: CONFUSION -RESOLVED , CHRONIC ALCOHOL USE /WERNICKE ENCEPHALOPATHY( ALCOHOL INDUCED ENCEPHALOPAHTY) /DEMENTIA -DUE TO CHRONIC ALCOHOL USE Activity: As commented below Activity Comment: CONTINUE PHYSICAL THERAPY /OCCUPATIONAL THERPY AT REHAB Non-emergency contact: Primary Care Provider Call non-emergency contact if: you have any medication questions Diet: Regular Diet Texture: Dental soft (bite-sized) Addtl Attending Provider Instructions: CT head showing indeterminate osseous lesions in the left frontal bone question possible malignancy -Brain MRI : 1. Redemonstration of the left frontal bone lesions measuring 1.6 and 1.4 cm. These are technically indeterminate but could represent benign atypical hemangioma or malignant lesions. No evidence for intracranial extension. Consider biopsy or comparison to old studies for further evaluation. 2. There is also a 9 mm lobular lesion within the left orbital apex which abuts but does not displace the optic nerve. This is also indeterminate but favors a meningioma. given pt's lack of symptom -no headache , stable vitals invasive procedure - Biopsy of brain may not be appropriate repeat MRI in 10-12 months for surveillance would be appropriate FOLLOW UP WITH FAMILY PHYSICIAN IN A WEEK OF DISCHARGE FROM REHAB Pending Studies at Discharge: Yes Studies:: LAB : TSH LEVEL IN 8 WEEKS MRI OF BRAIN WITH/WITHOUT CONTRAST IN 12 MONTHS TO ASSESS FOR LEFT FRONTAL BONE LESION Stand-Alone Forms: My [facility] Skilled Items Patient informed of condition?: Yes DNR: No Discharge Level of Care: Skilled Communicable Disease: No Discharge Prognosis: Stable Lines: None Urinary Catheter: No Medications and DC Order Prescriptions: New multivitamin [Daily-Lauryn] Tablet 1 tab PO QAM 30 Days Qty: 30 RF: 0 thiamine HCl (vitamin B1) [Vitamin B-1] 100 mg Tablet 100 mg PO QAM 30 Days Qty: 30 RF: 0 levothyroxine [Synthroid] 50 mcg Tablet 75 mcg PO DAILYBB 30 Days Qty: 45 RF: 0 folic acid 1 mg Tablet 1 mg PO QAM 30 Days Qty: 30 RF: 0 gabapentin [Neurontin] 100 mg capsule 100 mg PO HS Qty: 30 RF: 0 Discharge Orders: Discharge Order (Routine); Ordered 08/25/19 Ordered By: Marlene Oseguera/Other Patient Handouts: Diabetes [employer] Complications, Diabetes Healthy Meals, Diabetes Carbs, Diabetes Exercise Benefits, Diabetes Exercise Get Started, A1C Admission Data Admit Date/Time: 08/18/19 21:01 Attending Provider: Marlene Langford Admit Provider: Nico Rangel Primary Care Provider: PCP,NO Other Providers: [facility] ; [place] ; [facility], ; Joao Degroot ; Garret Meyer at [facility] Other Interventions: Discharge Summary Assessment (RN) Last Done: 08/25/19 12:38 DC Date/Time DO NOT enter until pt leaves facility: 08/25/19 14:05
== END 2019-08-25 14:05 | DRG 922 ==
LOC: ED 17:51 → 2S 21:01 → 4W 08-20 14:13

== ENCOUNTER 2019-08-30 18:26 | Inpatient (IN) ==
[2019-08-30] MEDS ORDERED: MULTI-VITAMIN INFUSION 10 ML, THIAMINE HCL 100 MG, FOLIC ACID 1 MG in SODIUM CHLORIDE 0... IV ONE (18:31)
--- NOTE | 2019-08-30 18:49 | CT Scan Report ---
CT head/brain wo con CT DOSE: 2116.32 mGy.cm HISTORY: Mental status change fall evla for bleed TECHNIQUE: Multiaxial CT images of the head were performed without the use of intravenous contrast. A dose lowering technique was utilized adhering to the principles of ALARA. Comparison: 08/18/2019 Findings: No change in the bony lucencies overlying the left frontal region. Major sinuses are clear as are the mastoids. The calvarium and skull base are intact. The ventricles and sulci are within normal limits. There is no mass, hematoma, midline shift, or acute infarct. Impression: No acute intracranial abnormality. Frontal bony lesions as previously described are considered unchan ged The above report was generated using voice recognition software. It may contain grammatical, syntax or spelling errors. Electronically signed by: Matty Thompson M.D. 08/30/2019 6:48 PM
--- NOTE | 2019-08-30 18:51 | CT Scan Report ---
CT cervical spine wo con CT DOSE: HISTORY: Trauma fall eval for fx TECHNIQUE: Multiaxial CT images of the cervical spine were performed and reformatted in the sagittal and coronal plane without the use of contrast. A dose lowering technique was utilized adhering to th e principles of ALARA. COMPARISON: None. FINDINGS: No fractures. No subluxation. Prevertebral soft tissues and the C1-C2 interval are intact. No pneumothorax. No evidence for compression deformity. Moderate degenerative disc changes throughout. IMPRESSION: 1. No acute bony abnormality. 2. Moderate degenerative change throughout the entire cervical region. The above report was generated using voice recognition software. It may contain grammatical, syntax or spelling errors. Electronically signed by: Matty Thompson M.D. 08/30/2019 6:50 PM
[2019-08-30] MEDS ORDERED: SODIUM CHLORIDE 3 % 500 ML IV SCH (19:15)
[2019-08-30 19:16] LABS: Basophils # (auto) 0.01 K/uL (0-0.2); Basophils % (auto) 0.1 %; Eosinophils # (auto) 0.06 K/uL (0-0.5); Eosinophils % (auto) 0.3 %; Hematocrit (blood only) 39.5 % (37-47); Hemoglobin 14.1 g/dL (12.0-16.0); Immature Granulocytes # (auto) 0.07 K/uL (0.00-0.02); Immature Granulocytes % (auto) 0.4 %; Lymphocytes # (auto) 1.68 K/uL (1.2-3.4); Lymphocytes % (auto) 8.6 %; Mean Corpuscular Hemoglobin 31.9 pg (25-34); Mean Corpuscular Hgb Conc 35.7 g/dL (32-36); Mean Corpuscular Volume 89.4 fL (80-100); Mean Platelet Volume 10.2 fL (7.4-10.4); Monocytes # (auto) 1.58 K/uL (0.11-0.59); Monocytes % (auto) 8.1 %; Neutrophils # (auto) 16.12 K/uL (1.4-6.5); Neutrophils % (auto) 82.5 %; Platelet Count 262 K/uL (130-400); RDW Coefficient of Variation 13.3 % (11.5-14.5); RDW Standard Deviation 43.7 fL (36.4-46.3); Red Blood Count 4.42 M/uL (4.2-5.4); White Blood Count 19.52 K/uL (4.8-10.8)
[2019-08-30 19:18] LABS: iSTAT Creatinine 0.5 mg/dl (0.6-1.3); iSTAT Ionized Calcium 1.06 mmol/l (1.12-1.32)
--- NOTE | 2019-08-30 19:24 | XRay Report ---
XR chest 1V portable CLINICAL HISTORY: ams eval for pna dyspnea COMPARISON STUDY: 08/18/2019 FINDINGS: Interval increase in cardiac size. Increased prominence of pulmonary vasculature and basila r interstitium. No well-defined focal infiltrate. This appearance suggest developing congestive failu re. IMPRESSION: Findings consistent with developing congestive heart failure The above report was generated using voice recognition software. It may contain grammatical, syntax or spelling errors. Electronically signed by: Matty Thompson M.D. 08/30/2019 7:23 PM
[2019-08-30 19:28] LABS: INR 1.1 (0.9-1.1); Partial Thromboplastin Ratio 1.1; Partial Thromboplastin Time 28.7 Seconds (21.0-31.0); Prothrombin Time 11.4 Seconds (9.0-12.0)
[2019-08-30 19:41] LABS: Acetaminophen < 2 ug/ml (10-30); Albumin Globulin Ratio 0.9 (0.9-2); Albumin Level 3.2 gm/dl (3.4-5.0); BUN Creatinine Ratio 12.2 (10-20); Bilirubin,Total 0.8 mg/dl (0.2-1); Creatinine Clr Calc Pharmacy 104.1 ml/min; Est GFR (Non-African American) 100.1; Globulin 3.8 gm/dl (2.5-4.0); Potassium 3.9 mmol/L (3.5-5.1)
[2019-08-30 19:42] LABS: Salicylate < 1.7 mg/dl (2.8-20)
--- NOTE | 2019-08-30 19:54 | History & Physical Report ---
Date of Service August 30, 2019 Assessment & Plan (1) Hyponatremia: Symptomatic hyponatremia manifesting as new onset seizure Possible underlying SIADH Hx brain tumors on recent inpatient MRI Bilateral rhonchi possible aspiration pneumonitis following new onset seizure, no sepsis for now dementia as per records possible Warnicke encephalopathy as per records, past alcohol abuse hypothyroidism, recent TSH slightly elevated Hyperglycemia likely new diagnosis of DM, hemoglobin A1c of 6.5 during recent confinement ICU monitoring Follow serum sodium after initial intervention at the ER Hyponatremia work-up Fluid restriction Nephrology consult RE symptomatic hyponatremia Keppra for seizure prophylaxis for now Seizure precautions, Ativan as needed EEG , Neurology consult in a.m. RE new onset seizures Unasyn for aspiration pneumonitis ISS BG goal 140-180 DVT prophylaxis. SCDs RE brain tumor Full code as per brother/POA Mr. Navarro Veliz. He requests updates from providers thru [phone]. Patient to possibly follow-up with Dr. Singh of [facility] [place] upon discharge as per brother. History of Present Illness Chief Complaint: Seizures Primary Care Provider: NO PCP (Patient's family intend for patient to establish with Dr. Singh of [facility] for PCP services on discharge.) History obtained from family and records. Unable to obtain history from patient secondary to disorientation/agitated state. Medical history significant for dementia as per records, possible Wernicke encephalopathy, hypothyroidism, past alcohol abuse, history of brain tumor as per records. Recent confinement 2 weeks ago for metabolic encephalopathy attributed to alcohol use. 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 9 mm lobular lesion within the left orbital apex. Patient discharged to [facility] for rehab last week. Patient doing well at rehab as per brother. Discharged to home contemplated 3 days from now. As per records, this afternoon patient noted to have a seizure while sitting on her wheelchair. Patient's head went back followed by stiffening. Subsequent fall after episode. Patient more disoriented than usual after episode. At the ER, serum sodium noted to be 116. Patient given banana bag and hypertonic saline. Medical History as above Surgical History : None per brother Family History : Could not be obtained Personal/Social history : Non-smoker, past alcohol abuse, disabled Allergies Allergy/AdvReac Type Severity Reaction Status Date / Time No Known Allergies Allergy Unverified 08/30/19 19:57 Home Medications Home Medications Medication Instructions Recorded Confirmed Type folic acid 1 mg PO QAM 30 Days #30 tab 08/23/19 08/30/19 Rx multivitamin [Daily-Lauryn] 1 tab PO QAM 30 Days #30 tab 08/23/19 08/30/19 Rx thiamine HCl (vitamin B1) [Vitamin 100 mg PO QAM 30 Days #30 tab 08/23/19 08/30/19 Rx B-1] gabapentin [Neurontin] 100 mg PO HS #30 cap 08/25/19 08/30/19 Rx acetaminophen [Tylenol] 650 mg PO Q4 PRN 08/30/19 08/30/19 History insulin lispro [Humalog U-100 1 sliding scale dose SUBCUT 08/30/19 08/30/19 History Insulin] USEASDIRECTD levothyroxine [Synthroid] 75 mcg PO DAILY 08/30/19 08/30/19 History magnesium hydroxide [Milk of 30 ml PO UD PRN 08/30/19 08/30/19 History Magnesia] Past Med/Surg History Medical History Alcoholism Wernickes encephalopathy Family History Other Family history unobtainable Social History Preferred Language: Wolof Communication Ability: Unable Gas Prover Required: No Beliefs That Will Affect Care: None marital status: Single Current Living Situation: [facility] Smoking Status: Unknown if ever smoked Hx Alcohol Use: Yes Alcohol type: beer Alcohol type Comment: 4-5 beers/day Hx Substance Use: No Review of Systems Review of Systems: Could not be reliably obtained Physical Exam Physical Exam: GENERAL: Agitated, currently being restrained by multiple ER staff on the stretcher while left femoral central line being placed by ER provider, no respiratory distress SKIN: Normal color, warm HEENT: [place] palpebral conjunctivae, no ptosis, dry buccal mucosa NECK : Supple, no tenderness CHEST : Bilateral rhonchi, no tenderness HEART : RRR, no obvious murmurs ABDOMEN: Some distention, nontender EXTREMITIES : No LE swelling/tenderness, no other conspicuous deformities noted NEUROLOGIC : Agitated, no facial asymmetry, no other gross focality Results & Data Vital Signs (Past 12 Hours) Vital Signs Temp Pulse Resp BP Pulse Ox 08/30/19 18:52 36.8 C 77 20 172/148 H 92 Laboratory Results Laboratory Results WBC 19.52 K/uL (4.8-10.8) H 08/30/19 18:59 RBC 4.42 M/uL (4.2-5.4) 08/30/19 18:59 Hgb 14.1 g/dL (12.0-16.0) 08/30/19 18:59 POC Hgb 15.0 g/dl (12.0-16.0) 08/30/19 19:03 Hct 39.5 % (37-47) 08/30/19 18:59 POC Hct 44 % (37-47) 08/30/19 19:03 MCV 89.4 fL (80-100) 08/30/19 18:59 MCH 31.9 pg (25-34) 08/30/19 18:59 MCHC 35.7 g/dL (32-36) 08/30/19 18:59 RDW Std Deviation 43.7 fL (36.4-46.3) 08/30/19 18:59 RDW Coeff of Ketan 13.3 % (11.5-14.5) 08/30/19 18:59 Plt Count 262 K/uL (130-400) 08/30/19 18:59 MPV 10.2 fL (7.4-10.4) 08/30/19 18:59 Immature Gran % (Auto) 0.4 % 08/30/19 18:59 Neut % (Auto) 82.5 % 08/30/19 18:59 Lymph % (Auto) 8.6 % 08/30/19 18:59 Mobile % (Auto) 8.1 % 08/30/19 18:59 Eos % (Auto) 0.3 % 08/30/19 18:59 Baso % (Auto) 0.1 % 08/30/19 18:59 Immature Gran # (Auto) 0.07 K/uL (0.00-0.02) H 08/30/19 18:59 Neut # (Auto) 16.12 K/uL (1.4-6.5) H 08/30/19 18:59 Lymph # (Auto) 1.68 K/uL (1.2-3.4) 08/30/19 18:59 Mobile # (Auto) 1.58 K/uL (0.11-0.59) H 08/30/19 18:59 Eos # (Auto) 0.06 K/uL (0-0.5) 08/30/19 18:59 Baso # (Auto) 0.01 K/uL (0-0.2) 08/30/19 18:59 PT 11.4 Seconds (9.0-12.0) 08/30/19 18:59 INR 1.1 (0.9-1.1) 08/30/19 18:59 APTT 28.7 Seconds (21.0-31.0) 08/30/19 18:59 PTT Ratio 1.1 08/30/19 18:59 POC Sodium 116 mEq/L (135-144) L* 08/30/19 19:03 Sodium 116 mmol/L (136-145) L* 08/30/19 18:59 POC Potassium 4.0 mEq/L (3.3-5.0) 08/30/19 19:03 Potassium 3.9 mmol/L (3.5-5.1) 08/30/19 18:59 POC Chloride 81 mEq/L (101-112) L 08/30/19 19:03 Chloride 83 mmol/L (98-107) L 08/30/19 18:59 Carbon Dioxide 25 mmol/L (21-32) 08/30/19 18:59 POC Total CO2 25 mEq/l (24-31) 08/30/19 19:03 Anion Gap 9.0 (3-11) 08/30/19 18:59 POC Anion Gap 15.0 mmol/L (16-25) L 08/30/19 19:03 POC BUN 6 mg/dl (7-18) L 08/30/19 19:03 BUN 8 mg/dl (7-18) 08/30/19 18:59 Creatinine 0.62 mg/dl (0.6-1.2) 08/30/19 18:59 POC Creatinine 0.5 mg/dl (0.6-1.3) L 08/30/19 19:03 Est Cr Clr Drug Dosing 104.1 ml/min 08/30/19 18:59 Est GFR ( Amer) 116.0 08/30/19 18:59 Est GFR (Non-Af Amer) 100.1 08/30/19 18:59 BUN/Creatinine Ratio 12.2 (10-20) 08/30/19 18:59 Glucose 126 mg/dl (70-99) H 08/30/19 18:59 POC Glucose (other) 131 mg/dl (70-99) H 08/30/19 19:03 Osmolality 244 mOsm/kg (280-300) L 08/30/19 19:00 Calcium 9.0 mg/dl (8.5-10.1) 08/30/19 18:59 POC Ioniz Calcium Fernando 1.06 mmol/l (1.12-1.32) L 08/30/19 19:03 Total Bilirubin 0.8 mg/dl (0.2-1) 08/30/19 18:59 AST 22 U/L (15-37) 08/30/19 18:59 ALT 37 U/L (12-78) 08/30/19 18:59 Alkaline Phosphatase 76 U/L (45-117) 08/30/19 18:59 POC Troponin I 0.06 ng/ml (0-0.045) H 08/30/19 19:03 Total Protein 7.0 gm/dl (6.4-8.2) 08/30/19 18:59 Albumin 3.2 gm/dl (3.4-5.0) L 08/30/19 18:59 Globulin 3.8 gm/dl (2.5-4.0) 08/30/19 18:59 Albumin/Globulin Ratio 0.9 (0.9-2) 08/30/19 18:59 Salicylates < 1.7 mg/dl (2.8-20) L 08/30/19 18:59 Acetaminophen < 2 ug/ml (10-30) L 08/30/19 18:59 Ethyl Alcohol mg/dL < 3.0 mg/dl (0-3) 08/30/19 18:[address] head: No acute intracranial abnormality. Frontal bony lesions as previously described are considered unchanged CT cervical spine: 1. No acute bony abnormality. 2. Moderate degenerative change throughout the entire cervical region. Chest x-ray : Interstitial congestion EKG as per my interpretation : Rate 80, normal axis, no ischemia
--- NOTE | 2019-08-30 20:00 | Emergency Department Note ---
Entered by Will Rios acting as a scribe for History of Present Illness General Chief complaint: Fall Stated complaint: seizure, fall/head bump Time Seen by Provider: 08/30/19 18:27 Source: EMS Limitations: altered mental status History of Present Illness Onset (ago): hour(s) 3 Location: head Pain Consistency: + constant Associated symptoms: + seizure The patient is a 58 year old female who presents to the Emergency Room after a fall occurring at 3 PM. EMS states the patient is from [facility] and reports that they are unsure how the patient fell. EMS states the patient had a seizure at 1730. EMS states [facility] stated the patient was sitting in her wheelchair when she had the seizure. EMS states they are unsure how long the seizure lasted. EMS states the patient's head was back, she was stiff, and her mouth was open. EMS states the patient is typically oriented to person and sometimes place. EMS states the patient is DNR. They note the patient's blood sugar was 138. EMS states the patient was not seizing on the way to the ED. HPI is limited secondary to altered mental status. Home Medications Home Medications Medication Instructions Recorded Confirmed Type folic acid 1 mg PO QAM 30 Days #30 tab 08/23/19 08/30/19 Rx multivitamin [Daily-Lauryn] 1 tab PO QAM 30 Days #30 tab 08/23/19 08/30/19 Rx thiamine HCl (vitamin B1) [Vitamin 100 mg PO QAM 30 Days #30 tab 08/23/19 08/30/19 Rx B-1] gabapentin [Neurontin] 100 mg PO HS #30 cap 08/25/19 08/30/19 Rx acetaminophen [Tylenol] 650 mg PO Q4 PRN 08/30/19 08/30/19 History insulin lispro [Humalog U-100 1 sliding scale dose SUBCUT 08/30/19 08/30/19 History Insulin] USEASDIRECTD levothyroxine [Synthroid] 75 mcg PO DAILY 08/30/19 08/30/19 History magnesium hydroxide [Milk of 30 ml PO UD PRN 08/30/19 08/30/19 History Magnesia] Allergies Allergy/AdvReac Type Severity Reaction Status Date / Time No Known Allergies Allergy Unverified 08/30/19 19:57 Past Med/Surg History Medical History Alcoholism Wernickes encephalopathy Family History Other Family history unobtainable Social History Preferred Language: Telugu 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 Tobacco Required: No Beliefs That Will Affect Care: None marital status: Single Current Living Situation: Care Home Smoking Status: Unknown if ever smoked Hx Alcohol Use: Yes Alcohol type: beer Alcohol type Comment: 4-5 beers/day Hx Substance Use: No Review of Systems Other (Unobtainable due to altered mental status) Physical Exam Vital Signs Vital Signs - 24 hr 08/30/19 18:47 08/30/19 18:52 08/30/19 19:00 Temperature 36.8 C Temperature Source Rectal Pulse Rate 79 77 69 Pulse Rate from SpO2 Sensor 80 71 Respiratory Rate 19 20 22 Blood Pressure 172/148 H 172/148 H 107/73 Blood Pressure Mean 149 156 84 Pulse Oximetry 91 92 92 Oxygen Delivery Method Room Air Sepsis Recent Fever Within 48 Hours No Sepsis New/Unexplained Change in Mental Status No Sepsis Action Taken by Nursing No Action Required 08/30/19 20:10 08/30/19 20:15 Temperature Temperature Source Pulse Rate 74 73 Pulse Rate from SpO2 Sensor 74 75 Respiratory Rate 24 19 Blood Pressure 139/66 127/77 Blood Pressure Mean 96 93 Pulse Oximetry 93 93 Oxygen Delivery Method Sepsis Recent Fever Within 48 Hours Sepsis New/Unexplained Change in Mental Status Sepsis Action Taken by Nursing The physical exam is limited due to the patient's condition. Constitutional: Vital signs reviewed. Eyes: Pupils are equal round reactive to light. Conjunctiva are noninjected. HENT: Bony nodule to the left forehead. No hematoma or soft tissue contusion. Respiratory: Clear to auscultation bilaterally. Breath sounds are equal bilaterally. Cardiovascular: Regular rate and rhythm. No murmurs, rubs or gallops. GI: Soft, nondistended and nontender. Bowel sounds are present. Musculoskeletal: No peripheral edema. Integumentary: No cyanosis. Neurological: The patient does not follow commands and is nonverbal. She moves all extremities and appears agitated. Psychiatric: Unable to assess. Procedures Central Line Placement Right Femoral: Time Out Performed: Yes Patient Placed on Monitor/Pulse Ox: Yes MD Prep: mask, gown and gloves Central Line Prep: Chlorhexidine scrub Local Anesthetic: lidocaine 1% Amount of anesthesia used (mL): 2 Ultrasound Used for Placement: Yes Central Line Lumen Inserted: triple Post Procedure: sutured in place, good blood return, all ports aspirated, flushed, capped and sterile dressing applied Patient Tolerated Procedure: no complications Complications: none Additional Comments: The patient was continually moving during placement of the central line. For people were in place trying to hold her still. I could not sedate her further as she is DNR and has already received 2 mg of Ativan and I was concerned about respiratory suppression. On my initial attempt I had good blood return from the syringe. I did attempt to pass the wire but the patient started bucking and was unable to pass the wire any further. I t herefore aborted the attempt. On the second attempt I was able to pass the wire easily made a small incision in the skin and then used the dilator. The triple- lumen then passed very easily and I secured it. Course Course 184: The patient was evaluated in room B1, and a complete history and physical examination were performed. 1852: I spoke with Charlene, calendering supervisor at [facility]. She states the patient was going to the bathroom at 1705 and the patient fell on her buttock. Charlene notes the patient hit her left forehead on the toilet and they thought the patient sustained a hematoma to her left forehead. Charlene notes the patient then vomited but they were not concerned as the patient vomited 2 days ago. Charlene states the patient was then sitting in her wheelchair with her head thrown back, and her mouth was opening and closing about an hour ago. Charlene notes the patient was unresponsive. 1914: Patient's sodium is 116 on I-STAT. Prior sodium was 140. Patient is still unresponsive. I talked to pharmacy and they are going to send a stat bolus of hypertonic saline. 1919: I discussed the patient's case with Dr. Agee - [facility] Hospitalist. He will evaluate the patient for further management. 1921: I spoke with Charlene. She states the patient has not been drinking a large amount of fluids. 1922: 100 mL of hypertonic saline given with no response. Triple lumen central line placed in right groin. Patient was given another 100 mL of hypertonic saline. 1952: Dr. Agee is evaluating the patient for ICU. 1957: I spoke to the patient's brother and updated him on the patient's status. 1999: I spoke to the patient's brother who identified himself as the health care proxy. He states he was the one who originally made the patient DNR. I updated the brother on the patient's condition and treatment plan. The brother states he would like to reverse the DNR and Rajwinder Anaya, nurse, witnessed that. 2014: I spoke to Dr. Agee. I discussed the conversation I had with the patient's brother with Dr. Agee. Dr. Agee states he also spoke to the brother. Dr. Agee states to hold off on giving the patient anymore hypertonic solution and states he will further manage the care of the patient. Administered Medications Gabapentin (Neurontin) 100 mg PO HS FLORENCIA Stop: 09/29/19 21:26 Last Admin: 08/30/19 21:49 Dose: Not Given Documented by: [id number] Dextrose (D5w) 1,000 mls @ 125 mls/hr IV .Q8H FLORENCIA Stop: 09/29/19 22:29 Last Admin: 08/30/19 22:32 Dose: 125 mls/hr Documented by: [id number] Dextrose (D5w) 1,000 mls @ 999 mls/hr IV .Q1H1M ONE Stop: 08/30/19 23:49 Last Admin: 08/30/19 22:57 Dose: 999 mls/hr Documented by: [id number] Insulin Aspart (Novolog Flexpen) 0 units SC ACHS FLORENCIA Stop: 09/29/19 21:44 Last Admin: 08/30/19 21:58 Dose: Not Given Documented by: [id number] Cosigned by: [id number] Discontinued Medications Albuterol (Duoneb) 3 ml NEB NOW STA Stop: 08/30/19 21:28 Last Admin: 08/30/19 21:47 Dose: 3 ml Documented by: [id number] Multivitamins 10 ml/ Thiamine HCl 100 mg/ Folic Acid 1 mg/Sodium Chloride 1,011.2 mls @ 1,011.2 mls/hr IV .Q1H ONE Stop: 08/30/19 19:30 Last Infusion: 08/30/19 20:28 Dose: 0 mls/hr Documented by: [id number] Admin: 08/30/19 19:05 Dose: 1,011.2 mls/hr Documented by: [id number] Sodium Chloride (Hypertonic Saline 3%) 500 mls @ 0 mls/hr IV .Q0M FLORENCIA; Protocol Stop: 09/29/19 19:14 Last Infusion: 08/30/19 20:28 Dose: 0 mls/hr Documented by: [id number] Cosigned by: [id number] Admin: 08/30/19 19:45 Dose: 999 mls/hr Documented by: [id number] Cosigned by: [id number] Levetiracetam 1,000 mg/ (Dextrose) 110 mls @ 440 mls/hr IV TODAY@2029 ONE Stop: 08/30/19 20:44 Last Infusion: 08/30/19 21:00 Dose: 0 mls/hr Documented by: [id number] Admin: 08/30/19 20:38 Dose: 440 mls/hr Documented by: [id number] Ampicillin Sodium/Sulbactam Sodium 3,000 mg/ Sodium Chloride 108 mls @ 216 mls/hr IV ONE ONE Stop: 08/30/19 20:59 Last Infusion: 08/30/19 21:00 Dose: 0 mls/hr Documented by: [id number] Admin: 08/30/19 20:38 Dose: 216 mls/hr Documented by: [id number] Magnesium Sulfate/Dextrose (Magnesium Sulfate / D5w) 1 gm in 100 mls @ 100 mls/hr IV Q1H FLORENCIA Stop: 08/30/19 22:29 Last Infusion: 08/30/19 22:58 Dose: 0 mls/hr Documented by: [id number] Admin: 08/30/19 21:58 Dose: 100 mls/hr Documented by: [id number] Admin: 08/30/19 20:38 Dose: Not Given Documented by: [id number] Sodium Chloride (Nss 1000ml) 1,000 mls @ 100 mls/hr IV .Q10H FLORENCIA Stop: 09/29/19 21:44 Last Infusion: 08/30/19 22:58 Dose: 0 mls/hr Documented by: [id number] Admin: 08/30/19 21:59 Dose: 100 mls/hr Documented by: [id number] Desmopressin Acetate 2 mcg/ (Sodium Chloride) 50.5 mls @ 100 mls/hr IV ONE ONE Stop: 08/30/19 23:15 Last Infusion: 08/30/19 23:22 Dose: 0 mls/hr Documented by: [id number] Admin: 08/30/19 22:50 Dose: 100 mls/hr Documented by: [id number] Magnesium Sulfate/Dextrose (Magnesium Sulfate / D5w) Confirm Administered Dose 1 gm IV .STLoandesk-MED ONE Stop: 08/30/19 20:21 Last Admin: 08/30/19 20:22 Dose: 1 gm Documented by: [id number] Critical Care Time Critical Care Time: Yes Total Critical Care Time: 40 I have personally spent approximately 40 minutes of critical care time in the direct management of this patient. This includes bedside care, interpretation of diagnostic studies, and testing, discussion with consultants, patient, and family members, and other required patient management activities. This 40 minutes is in excess of all separately billable procedures. Medical Decision Making Differential Diagnosis Differential Diagnosis includes but is not limited to seizure, status epilepticus, ICH, intracranial mass, metabolic derangement, alcohol intoxication, and infection. Medical Records Attestation: I reviewed the patient's medical records. Patient was admitted on August 18 for confusion, chronic alcohol use, dementia, and wenicke's encephalopathy. She was noted to have baseline slow res ponsiveness, poor short term memory, and chronic gait disturbance. 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 Home Medications Current Medication List: was personally reviewed by me Laboratory Data Attestation: I reviewed the patient's lab results. Result diagrams: 08/30/19 18:59 08/30/19 21:51 Lab Results 08/30/19 08/30/19 08/30/19 Range/Units 18:59 18:59 18:59 WBC 19.52 H (4.8-10.8) K/uL RBC 4.42 (4.2-5.4) M/uL Hgb 14.1 (12.0-16.0) g/dL POC Hgb (12.0-16.0) g/dl Hct 39.5 (37-47) % POC Hct (37-47) % MCV 89.4 (80-100) fL MCH 31.9 (25-34) pg MCHC 35.7 (32-36) g/dL RDW Std Deviation 43.7 (36.4-46.3) fL RDW Coeff of Ketan 13.3 (11.5-14.5) % Plt Count 262 (130-400) K/uL MPV 10.2 (7.4-10.4) fL Immature Gran % (Auto) 0.4 % Neut % (Auto) 82.5 % Lymph % (Auto) 8.6 % [place] % (Auto) 8.1 % Eos % (Auto) 0.3 % Baso % (Auto) 0.1 % Immature Gran # (Auto) 0.07 H (0.00-0.02) K/uL Neut # (Auto) 16.12 H (1.4-6.5) K/uL Lymph # (Auto) 1.68 (1.2-3.4) K/uL [place] # (Auto) 1.58 H (0.11-0.59) K/uL Eos # (Auto) 0.06 (0-0.5) K/uL Baso # (Auto) 0.01 (0-0.2) K/uL PT (9.0-12.0) Seconds INR (0.9-1.1) APTT (21.0-31.0) Seconds PTT Ratio POC Sodium (135-144) mEq/L Sodium 116 L* (136-145) mmol/L POC Potassium (3.3-5.0) mEq/L Potassium 3.9 (3.5-5.1) mmol/L POC Chloride (101-112) mEq/L Chloride 83 L (98-107) mmol/L Carbon Dioxide 25 (21-32) mmol/L POC Total CO2 (24-31) mEq/l Anion Gap 9.0 (3-11) POC Anion Gap (16-25) mmol/L POC BUN (7-18) mg/dl BUN 8 (7-18) mg/dl Creatinine 0.62 (0.6-1.2) mg/dl POC Creatinine (0.6-1.3) mg/dl Est Cr Clr Drug Dosing 104.1 ml/min Est GFR ( Amer) 116.0 Est GFR (Non-Af Amer) 100.1 BUN/Creatinine Ratio 12.2 (10-20) Glucose 126 H (70-99) mg/dl POC Glucose (other) (70-99) mg/dl Osmolality (280-300) mOsm/kg Calcium 9.0 (8.5-10.1) mg/dl POC Ioniz Calcium Fernando (1.12-1.32) mmol/l Magnesium 1.4 L (1.8-2.4) mg/dl Total Bilirubin 0.8 (0.2-1) mg/dl AST 22 (15-37) U/L ALT 37 (12-78) U/L Alkaline Phosphatase 76 (45-117) U/L POC Troponin I (0-0.045) ng/ml NT-Pro-B Natriuret Pep 406 (0-900) pg/ml Total Protein 7.0 (6.4-8.2) gm/dl Albumin 3.2 L (3.4-5.0) gm/dl Globulin 3.8 (2.5-4.0) gm/dl Albumin/Globulin Ratio 0.9 (0.9-2) TSH 3.240 (0.300-4.500) uIu/ml FSH IU/L Luteinizing Hormone IU/L Prolactin ng/ml Salicylates (2.8-20) mg/dl Acetaminophen (10-30) ug/ml Ethyl Alcohol mg/dL < 3.0 (0-3) mg/dl 08/30/19 08/30/19 08/30/19 Range/Units 18:59 18:59 19:00 WBC (4.8-10.8) K/uL RBC (4.2-5.4) M/uL Hgb (12.0-16.0) g/dL POC Hgb (12.0-16.0) g/dl Hct (37-47) % POC Hct (37-47) % MCV (80-100) fL MCH (25-34) pg MCHC (32-36) g/dL RDW Std Deviation (36.4-46.3) fL RDW Coeff of Ketan (11.5-14.5) % Plt Count (130-400) K/uL MPV (7.4-10.4) fL Immature Gran % (Auto) % Neut % (Auto) % Lymph % (Auto) % [place] % (Auto) % Eos % (Auto) % Baso % (Auto) % Immature Gran # (Auto) (0.00-0.02) K/uL Neut # (Auto) (1.4-6.5) K/uL Lymph # (Auto) (1.2-3.4) K/uL [place] # (Auto) (0.11-0.59) K/uL Eos # (Auto) (0-0.5) K/uL Baso # (Auto) (0-0.2) K/uL PT 11.4 (9.0-12.0) Seconds INR 1.1 (0.9-1.1) APTT 28.7 (21.0-31.0) Seconds PTT Ratio 1.1 POC Sodium (135-144) mEq/L Sodium (136-145) mmol/L POC Potassium (3.3-5.0) mEq/L Potassium (3.5-5.1) mmol/L POC Chloride (101-112) mEq/L Chloride (98-107) mmol/L Carbon Dioxide (21-32) mmol/L POC Total CO2 (24-31) mEq/l Anion Gap (3-11) POC Anion Gap (16-25) mmol/L POC BUN (7-18) mg/dl BUN (7-18) mg/dl Creatinine (0.6-1.2) mg/dl POC Creatinine (0.6-1.3) mg/dl Est Cr Clr Drug Dosing ml/min Est GFR ( Amer) Est GFR (Non-Af Amer) BUN/Creatinine Ratio (10-20) Glucose (70-99) mg/dl POC Glucose (other) (70-99) mg/dl Osmolality 244 L (280-300) mOsm/kg Calcium (8.5-10.1) mg/dl POC Ioniz Calcium Fernando (1.12-1.32) mmol/l Magnesium (1.8-2.4) mg/dl Total Bilirubin (0.2-1) mg/dl AST (15-37) U/L ALT (12-78) U/L Alkaline Phosphatase (45-117) U/L POC Troponin I (0-0.045) ng/ml NT-Pro-B Natriuret Pep (0-900) pg/ml Total Protein (6.4-8.2) gm/dl Albumin (3.4-5.0) gm/dl Globulin (2.5-4.0) gm/dl Albumin/Globulin Ratio (0.9-2) TSH (0.300-4.500) uIu/ml FSH IU/L Luteinizing Hormone IU/L Prolactin ng/ml Salicylates < 1.7 L (2.8-20) mg/dl Acetaminophen < 2 L (10-30) ug/ml Ethyl Alcohol mg/dL (0-3) mg/dl 08/30/19 08/30/19 08/30/19 Range/Units 19:00 19:03 19:03 WBC (4.8-10.8) K/uL RBC (4.2-5.4) M/uL Hgb (12.0-16.0) g/dL POC Hgb 15.0 (12.0-16.0) g/dl Hct (37-47) % POC Hct 44 (37-47) % MCV (80-100) fL MCH (25-34) pg MCHC (32-36) g/dL RDW Std Deviation (36.4-46.3) fL RDW Coeff of Ketan (11.5-14.5) % Plt Count (130-400) K/uL MPV (7.4-10.4) fL Immature Gran % (Auto) % Neut % (Auto) % Lymph % (Auto) % [place] % (Auto) % Eos % (Auto) % Baso % (Auto) % Immature Gran # (Auto) (0.00-0.02) K/uL Neut # (Auto) (1.4-6.5) K/uL Lymph # (Auto) (1.2-3.4) K/uL [place] # (Auto) (0.11-0.59) K/uL Eos # (Auto) (0-0.5) K/uL Baso # (Auto) (0-0.2) K/uL PT (9.0-12.0) Seconds INR (0.9-1.1) APTT (21.0-31.0) Seconds PTT Ratio POC Sodium 116 L* (135-144) mEq/L Sodium (136-145) mmol/L POC Potassium 4.0 (3.3-5.0) mEq/L Potassium (3.5-5.1) mmol/L POC Chloride 81 L (101-112) mEq/L Chloride (98-107) mmol/L Carbon Dioxide (21-32) mmol/L POC Total CO2 25 (24-31) mEq/l Anion Gap (3-11) POC Anion Gap 15.0 L (16-25) mmol/L POC BUN 6 L (7-18) mg/dl BUN (7-18) mg/dl Creatinine (0.6-1.2) mg/dl POC Creatinine 0.5 L (0.6-1.3) mg/dl Est Cr Clr Drug Dosing ml/min Est GFR ( Amer) Est GFR (Non-Af Amer) BUN/Creatinine Ratio (10-20) Glucose (70-99) mg/dl POC Glucose (other) 131 H (70-99) mg/dl Osmolality (280-300) mOsm/kg Calcium (8.5-10.1) mg/dl POC Ioniz Calcium Fernando 1.06 L (1.12-1.32) mmol/l Magnesium (1.8-2.4) mg/dl Total Bilirubin (0.2-1) mg/dl AST (15-37) U/L ALT (12-78) U/L Alkaline Phosphatase (45-117) U/L POC Troponin I 0.06 H (0-0.045) ng/ml NT-Pro-B Natriuret Pep (0-900) pg/ml Total Protein (6.4-8.2) gm/dl Albumin (3.4-5.0) gm/dl Globulin (2.5-4.0) gm/dl Albumin/Globulin Ratio (0.9-2) TSH (0.300-4.500) uIu/ml FSH 81.61 IU/L Luteinizing Hormone 23.53 IU/L Prolactin 31.19 ng/ml Salicylates (2.8-20) mg/dl Acetaminophen (10-30) ug/ml Ethyl Alcohol mg/dL (0-3) mg/dl Imaging Data Radiologist's Impression: Radiology results as stated below per my review and the radiologist's interpretation: CT cervical spine wo con CT DOSE: HISTORY: Trauma fall eval for fx TECHNIQUE: Multiaxial CT images of the cervical spine were performed and reformatted in the sagittal and coronal plane without the use of contrast. A dose lowering technique was utilized adhering to the principles of ALARA. COMPARISON: None. FINDINGS: No fractures. No subluxation. Prevertebral soft tissues and the C1-C2 interval are intact. No pneumothorax. No evidence for compression deformity. Moderate degenerative disc changes throughout. IMPRESSION: 1. No acute bony abnormality. 2. Moderate degenerative change throughout the entire cervical region. The above report was generated using voice recognition software. It may contain grammatical, syntax or spelling errors. Electronically signed by: Matty Thompson M.D. 08/30/2019 6:[address] head/brain wo con CT DOSE: 2116.32 mGy.cm HISTORY: Mental status change fall evla for bleed TECHNIQUE: Multiaxial CT images of the head were performed without the use of intravenous contrast. A dose lowering technique was utilized adhering to the principles of ALARA. Comparison: 08/18/2019 Findings: No change in the bony lucencies overlying the left frontal region. Major sinuses are clear as are the mastoids. The calvarium and skull base are intact. The ventricles and sulci are within normal limits. There is no mass, hematoma, midline shift, or acute infarct. Impression: No acute intracranial abnormality. Frontal bony lesions as previously described are considered unchanged The above report was generated using voice recognition software. It may contain grammatical, syntax or spelling errors. Electronically signed by: Matty Thompson M.D. 08/30/2019 6:48 PM XR chest 1V portable CLINICAL HISTORY: ams eval for pna dyspnea COMPARISON STUDY: 08/18/2019 FINDINGS: Interval increase in cardiac size. Increased prominence of pulmonary vasculature and basilar interstitium. No well-defined focal infiltrate. This appearance suggest developing congestive failure. IMPRESSION: Findings consistent with developing congestive heart failure The above report was generated using voice recognition software. It may contain grammatical, syntax or spelling errors. Electronically signed by: Matty Thompson M.D. 08/30/2019 7:23 PM ECG Data Attestation: I personally reviewed and interpreted this ECG as follows: Indication: + altered mental status Rate (beats per minute): 79 Rhythm: + sinus rhythm ECG Intervals/blocks: no Prolonged QT ECG ST segments: no ST elevation ECG Findings: no PVCs Blood Pressure Blood Pressure Findings: Elevated blood pressure Blood Pressure Disposition: further management by hospitalist MEMO Burgos I did evaluate the patient as noted above. The patient was brought in with altered mental status. She apparently had a seizure at [facility]. I did speak to Charlene who is a calendering supervisor there. See the ED course for further details. EMS did treat her with 2 mg of Ativan due to significant agitation. The patient was placed on a continuous monitoring coordinator. Cardiac monitoring: Indication: Seizure and altered mental status Rate and rhythm: Normal sinus rhythm with a rate of 79. No ectopy or dysrhythmia was noted. I did order and personally review the patient's 12-lead EKG as described above. She has no acute ischemic changes. She does have a prolonged QT interval. I did order a CT of the head and cervical spine. I did review the images myself as well as the radiology report as described above. There was some motion artifact but no intracranial hemorrhage. No cervical fracture was noted. I did order and personally reviewed the images of the patient's chest x-ray as described above. She had congestive changes. I did order a urine analysis. I did order and review the patient's blood work as noted in the electronic medical record. She has severe hyponatremia. Her last sodium was 142. Today it is 116. This is a rapid change and she had seizure activity and continues to be unresponsive here. I therefore felt she needed hypertonic saline. I did discuss this with the pharmacist. She was initially given 100 mL of 3% hypertonic saline via the peripheral line. In the meantime I did put in a central line in the right groin as described above. She was then given a second 100 mL of 3% hypertonic saline through the central line. I did discuss the case with her brother who identified himself as the healthcare proxy. I did explain to them the rationale for the hypertonic saline as well as the risks of administering it. He did request that the patient be made full code. I did discuss the case with the hospitalist and residential case manager. The patient was admitted to the ICU. I did discuss CODE STATUS with the hospitalist. Impression & Plan Hyponatremia, AMS (altered mental status), Seizure, Leukocytosis, Wernicke encephalopathy, Prolonged QT interval Discharge Plan Visit Data *Final* Discharge Date/Time: 08/30/19 20:59 Chief Complaint: Fall Stated Complaint: seizure, fall/head bump ED Provider: Gabino Flores Discharge Problem: Hyponatremia, AMS (altered mental status), Seizure, Leukocytosis, Wernicke encephalopathy, Prolonged QT interval Patient Disposition: Admitted As Inpatient Discharge Instructions Interventions: ED Discharge Assessment Last Done: 08/30/19 20:59 Discharge Problem: AMS (altered mental status) Qualifiers: Altered mental status type: unspecified Qualified Code(s): R41.82 - Altered mental status, unspecified Leukocytosis Qualifiers: Leukocytosis type: unspecified Qualified Code(s): D72.829 - Elevated white blood cell count, unspecified The rodolfoibe's documentation has been prepared under my direction and personally reviewed by me in its entirety. I confirm that the note above accurately reflects all work, treatment, procedures, and medical decision making performed by me.
[2019-08-30] MEDS ORDERED: ERTAPENEM SODIUM 10 ML IV STA (20:01)
[2019-08-30] MEDS ORDERED: LORazepam 1 MG/2 ML VIAL IV PRN (20:01)
[2019-08-30] MEDS ORDERED: LORazepam 0.5 MG/1 ML VIAL IV PRN (20:01)
[2019-08-30 20:09] LABS: Magnesium 1.4 mg/dl (1.8-2.4); Thyroid Stimulating Hormone 3.24 uIu/ml (0.300-4.500)
[2019-08-30] MEDS ORDERED: MAGNESIUM SULFATE 1GM / D5W BAG IV ONE (20:20)
[2019-08-30] MEDS ORDERED: AMPICILLIN/SULBACTAM SOD 3,000 MG in 0.9 % SODIUM CHLORIDE 100 ML IV ONE (20:30)
[2019-08-30 20:35] LABS: Appearance Urine Clear (Clear); Bilirubin Urine Negative (Negative); Blood Urine Negative (Negative); Color Urine Yellow; Glucose Urine UA Negative (Negative); Ketones Urine Negative (Negative); Leukocyte Esterase Urine Negative (Negative); Nitrite Urine Negative (Negative); Protein Urine Negative (Negative); Specific Gravity Urine 1.004 (1.000-1.030); Urobilinogen Urine Negative (Negative)
[2019-08-30] MEDS: MAGNESIUM SULFATE / D5W 1 GM/100 ML BAG IV SCH ×2 (20:38→21:58)
[2019-08-30 21:05] LABS: Follicle Stimulating Hormone 81.61 IU/L; Luteinizing Hormone 23.53 IU/L; Prolactin 31.19 ng/ml
[2019-08-30 21:05] LABS: Amphetamines+Metham, Urine Neg (Neg); Barbiturates, Urine Neg (Neg); Benzodiazepine, Urine Neg (Neg); Cocaine, Urine Neg (Neg); MDMA (Ecstacy), Urine Neg (Neg); Methadone, Urine Neg (Neg); Opiate, Urine Neg (Neg); Phencyclidine, Urine Neg (Neg)
[2019-08-30] MEDS ORDERED: ACETAMINOPHEN 325 MG TAB PO PRN (21:27)
[2019-08-30] MEDS ORDERED: GLUCOSE 40% GEL 15 GM TUBE PO PRN (21:27)
[2019-08-30] MEDS ORDERED: ALBUT/IPRATROP 3MG/0.5MG NEB 3 ML VIAL NEB STA (21:27)
[2019-08-30] MEDS ORDERED: ICU PROTOCOL FOR HYPERGLYCEMIA PRN ×2 (21:27→21:40)
[2019-08-30] MEDS ORDERED: OLANZapine 10 MG/2.1 ML SDV IM PRN (21:27)
[2019-08-30] MEDS ORDERED: ALBUT/IPRATROP 3MG/0.5MG NEB 3 ML VIAL NEB PRN (21:27)
[2019-08-30] MEDS ORDERED: GLUCAGON FOR INJ 1 MG VIAL SQ PRN (21:27)
[2019-08-30] MEDS ORDERED: CARBOHYDRATES FOR HYPOGLYCEMIA PO PRN (21:27)
[2019-08-30] MEDS ORDERED: PROMETHAZINE HCL 12.5 MG in SODIUM CHLORIDE 0.9% 50 ML IV PRN (21:27)
[2019-08-30] MEDS ORDERED: DEXTROSE 50% 50 ML SYRINGE IV PRN (21:27)
[2019-08-30] MEDS ORDERED: GLUCOSE 10 TABS/TUBE PO PRN (21:27)
[2019-08-30] MEDS ORDERED: AMPICILLIN/SULBACTAM CONSULT ACTIVE PRN (21:37)
[2019-08-30] MEDS ORDERED: SODIUM CHLORIDE 0.9% 1000ML 1,000 ML IV SCH (21:45)
[2019-08-30] MEDS: GABAPENTIN 100 MG CAP PO SCH (21:49)
[2019-08-30] MEDS: INSULIN ASPART 100 UNITS/ML 3 ML PEN SC SCH (21:58)
[2019-08-30 22:21] LABS: BUN Creatinine Ratio 10.4 (10-20); Calcium 9.1 mg/dl (8.5-10.1); Creatinine Clr Calc Pharmacy 93.7 ml/min; Est GFR (Non-African American) 100.1; Magnesium 2.1 mg/dl (1.8-2.4); Potassium 3.5 mmol/L (3.5-5.1)
[2019-08-30] MEDS ORDERED: DEXTROSE 5% 1,000 ML IV SCH (22:30)
--- NOTE | 2019-08-30 22:30 | Critical Care Consultation ---
Date of Consultation August 30, 2019 Assessment & Plan (1) Hyponatremia: Reason Critically Ill: 58-year-old female admitted for hyponatremia and seizure Neuro - Altered mental statuslikely multiple contributors as patient is postictal following seizure, hyponatremic, and has known dementia -Placed on seizure precautions, given Keppra for prophylaxis and PRN Ativan -EtOH negative on admission, will proceed with SAMY S and PRN benzos as patient is alcoholic but has been in hospital and rehab facility for past 2 weeks -History of possible Warnicke's encephalopathy, will give thiamine -Patient also found to have brain mass on last admission suggestive of frontal lobe meningioma, urology consulted, will follow up recommendations -No acute process on CT head and cervical following fall -LFTs within normal limits -See management of hyponatremia below Cardiac - Currently in normal sinus rhythm and hemodynamically stable without need for pressors, continue to monitor on telemetry and frequent vitals Respiratory - Patient currently maintaining sats on room air, continue to monitor GI - LFTs and lipase within normal limits We will keep n.p.o. for now until mental status improved RENAL/LYTES - Hyponatremiapatient presented with euvolemic hypotonic hyponatremia -Urine Osmo low and urine sodium 40, suspicion for polydipsia considering presentation, cannot rule out SIADH and history of brain tumors -Nephrology consulted, will follow up recommendations -Patient was given 3% hypertonic saline in the ED for sodium 116, sodium over corrected to 129 on recheck -DDAVP was administered and patient bolused with D5W -Goal sodium increase of 8 mEq from 116 over 24-hour, goal to reduce sodium in this window for now -We will frequently check sodium and adjust therapy as indicated to achieve goals - Foleystrict I's and O's ENDO - Hypothyroidismrecently diagnosed on prior admission and started on Synthroid, will continue -TSH 3.2 on this admission ICU hyperglycemic protocol HEME - H&H stable, monitor routine CBCs ID - Patient was started on Unasyn for suspected aspiration LINES/IV ACCESS - Femoral central line DVT PROPHYLAXIS - SCDs, heparin subcu I have personally spent 60 minutes of critical care time in the direct management of this patient. This is a life/limb threatening event. This includes time spent evaluating patient, direct bedside care, chart review, placing orders, interpretation of diagnostic studies, discussion with consultants, patient, and family members, as well as other required patient management activities. This time is exclusive of all separately billable procedures, and teaching time and separate from and in addition to any other critical care service time. Thank you for allowing us to participate in the care of this patient. Please refer to my attending physician's documentation for any further recommendations. (2) AMS (altered mental status): (3) Brain lesion: (4) Alcoholism: Supervising Physician Co-Signing Physician Notes I have personally evaluated and examined this patient. I agree with assessment and plan of Belia PARSON. I personally presented to the hospital and obtained my portion of the history and physical as well as evaluated the patient from 0005 until 0040 I have personally spent 35 minutes of critical care time in the direct management of this patient. This is a life/limb threatening event. This includes time spent evaluating patient, direct bedside care, chart review, placing orders, interpretation of diagnostic studies, discussion with consultants, patient, and/or family members regarding treatment decisions, as well as other required patient management activities. This time is exclusive of all separately billable procedures, and teaching time and separate from and in addition to any other critical care service time. History of Present Illness Attending Physician: Francie Brower DO History of Present Illness Ms. Veliz is a 58-year-old female with PMH significant for dementia, hypothyroidism, alcoholism, brain tumor, and possible Warnicke syndrome who was recently admitted and treated for alcoholic pancreatitis and metabolic encephalopathy. She was discharged to [facility] for rehab last week and was planning to be discharged 3 days from now. Patient was reportedly sitting in her wheelchair this afternoon when she had an observed seizure with subsequent fall after episode and she became more disoriented than usual after this episode. In the emergency department she was found to be hyponatremic with sodium of 116 and she was given 200 mL bolus of 3% sodium chloride. CT head and cervical spine were negative for acute process. She was transferred to the ICU where on arrival it was noted that the patient had nearly 3 L of urine output. Labs were immediately repeated and patient was found to have a repeat sodium of 129. D5W was immediately administered and she was given IV desmopressin. Patient remains obtunded most likely attributed to postictal state following seizure. However, she is protecting her airway and remains hemodynamically stable without vasopressors or supplemental oxygen. Patient to remain in ICU for further management for now considering high acuity of disease process. Allergies Allergy/AdvReac Type Severity Reaction Status Date / Time No Known Allergies Allergy Unverified 08/30/19 19:57 Home Medications Home Medications Medication Instructions Recorded Confirmed Type folic acid 1 mg PO QAM 30 Days #30 tab 08/23/19 08/30/19 Rx multivitamin [Daily-Lauryn] 1 tab PO QAM 30 Days #30 tab 08/23/19 08/30/19 Rx thiamine HCl (vitamin B1) [Vitamin 100 mg PO QAM 30 Days #30 tab 08/23/19 08/30/19 Rx B-1] gabapentin [Neurontin] 100 mg PO HS #30 cap 08/25/19 08/30/19 Rx acetaminophen [Tylenol] 650 mg PO Q4 PRN 08/30/19 08/30/19 History insulin lispro [Humalog U-100 1 sliding scale dose SUBCUT 08/30/19 08/30/19 History Insulin] USEASDIRECTD levothyroxine [Synthroid] 75 mcg PO DAILY 08/30/19 08/30/19 History magnesium hydroxide [Milk of 30 ml PO UD PRN 08/30/19 08/30/19 History Magnesia] Patient History Medical History Alcoholism Wernickes encephalopathy Family History Other Family history unobtainable Social History Preferred Language: Italian Communication Ability: Impaired Exchange Specialist Required: No Beliefs That Will Affect Care: None marital status: Single Current Living Situation: [facility] Smoking Status: Unknown if ever smoked Hx Alcohol Use: Yes Alcohol type: beer Alcohol type Comment: 4-5 beers/day Hx Substance Use: No Review of Systems Review of Systems: Unobtainable due to cognitive status and Unobtainable due to reduced consciousness Physical Exam Eyes: PERRL, conjunctivae normal, anicteric sclerae ENMT: external ear and nose normal, oropharynx normal Neck: trachea midline, no thyromegaly Respiratory: normal respiratory effort, lungs clear to auscultation Cardiovascular: RRR, no murmur, no edema Heart Sounds: normal S1 and normal S2 Vessels: no JVD Extremities: no edema Gastrointestinal (Abdomen): normal bowel sounds, soft, nontender, no hepatosplenomegaly Skin: no rashes, warm and dry Neurologic: + obtunded Speech / Cognition: + abnormal cognition Psychiatric: Orientation: + uncooperative Results & Data Vital Signs (Past 12 Hours) Vital Signs Temp Pulse Pulse Resp BP BP Pulse Ox 08/30/19 22:15 36.6 C 81 18 91 08/30/19 22:06 77 16 95 08/30/19 22:01 78 12 105/55 L 91 08/30/19 22:00 73 25 H 78 L 08/30/19 21:45 63 16 139/71 92 08/30/19 21:41 36.9 C 75 77 21 105/55 L 91 08/30/19 21:34 68 24 92 08/30/19 21:30 36.9 C 67 18 109/67 92 08/30/19 21:27 36.9 C 67 75 26 H 109/67 105/55 L 90 08/30/19 21:01 70 17 110/61 94 08/30/19 21:00 69 17 94 08/30/19 20:58 76 16 124/68 94 08/30/19 20:33 75 18 123/83 92 08/30/19 20:30 73 28 H 94 08/30/19 20:15 73 19 127/77 93 08/30/19 20:10 74 24 139/66 93 08/30/19 19:00 69 22 107/73 92 08/30/19 18:52 36.8 C 77 20 172/148 H 92 08/30/19 18:47 79 19 172/148 H 91 Coding Level of Care Code Critical Care 1st 30-74 mins Diagnoses Hyponatremia E87.1 AMS (altered mental status) R41.82 Altered mental status type: unspecified Brain lesion G93.9 Alcoholism F10.20 (1) AMS (altered mental status) Altered mental status type: unspecified Qualified Code(s): R41.82 - Altered mental status, unspecified
--- NOTE | 2019-08-30 22:30 | Communication Note ---
Date of Service: August 30, 2019 I was notified of this pending admission via telephone @ 2025. Informed patient was place on 3% saline, advised to discontinue 3% saline and repeat BMP, observe for high urine output which could require DDAVP administration. Following up at 22:18, reported patient just arrived from the ED to ICU, had 3 liters urine output while in ED, repeat sodium was 129. Instructed to start d5W @ 125ml/hour and administer DDAVP 2 mcg IV now and frequent sodium checks.
[2019-08-30] MEDS ORDERED: DESMOPRESSIN ACETATE 2 MCG in SODIUM CHLORIDE 0.9% 50 ML IV ONE (22:45)
[2019-08-30] MEDS ORDERED: DEXTROSE 5% 1,000 ML IV ONE (22:49)
[2019-08-31 00:45] LABS: BUN Creatinine Ratio 6.7 (10-20); Calcium 8.6 mg/dl (8.5-10.1); Creatinine Clr Calc Pharmacy 77.5 ml/min; Est GFR (African American) 102.6; Est GFR (Non-African American) 88.5; Potassium 3.3 mmol/L (3.5-5.1)
[2019-08-31] MEDS ORDERED: DEXTROSE 5% IV ONE (00:45)
[2019-08-31] MEDS: AMPICILLIN/SULBACTAM SOD 3,000 MG in 0.9 % SODIUM CHLORIDE 100 ML IV SCH ×2 (01:23→08:08)
[2019-08-31] MEDS: POTASSIUM CHLORIDE / WTR 20 MEQ/100 ML PLCT IV SCH ×2 (01:24→03:19)
[2019-08-31] MEDS: DEXTROSE 5% 1,000 ML IV SCH ×2 (03:21→09:23)
[2019-08-31 04:28] LABS: Magnesium 2.1 mg/dl (1.8-2.4)
[2019-08-31] MEDS: LEVOTHYROXINE SODIUM 75 MCG TABLET PO SCH (05:29)
[2019-08-31] MEDS ORDERED: DESMOPRESSIN ACETATE 2 MCG in SODIUM CHLORIDE 0.9% 50 ML IV ONE (06:00)
--- NOTE | 2019-08-31 06:30 | Critical Care Progress Note ---
Date of Service August 31, 2019 Assessment & Plan (1) Seizure: Reason Critically Ill: 58-year-old female here with a PMHx significant for seizure, alcoholism with wernicke encephalpathy, and prolonged QT interval who presented with a seizure/fall and who was admitted for symptomatic hyponatremia. Neuro - [facility] ICU: POSITIVE Altered Mental Status in setting of known dementia and seizure prior to admission - Follows brief commands, but does not verbalize answers to questions. - Seizure precautions - Keppra 1g loading given; continue Keppra 500mg IV BID - EtoH negative on admission. No reported EtoH in 2 weeks, low suspicious for acute withdrawal. - CT-H/cervical- no fxr, bleed, or acute change -Neuro consulted. EEG cancelled 2/2 patient compliance. ?Repeat per neuro recommendations Suspected Wernicke's Encephalopathy - Thiamine high dose protocol, 500mg TID x1 day, then 200mg IV Cardiac - Hemodynamically stable. Continue to monitor Respiratory - - Stable, unlabored breathing, normal SpO2 on room air - Reported concern for aspiration PNA. CXR with no focal infiltrate - Abx as below given ICU admission, but reassess need vs d/c at 24-48 hours GI - Clear liquid, 1200cc fluid restriction RENAL/LYTES - Hyponatremia 2/2 SIADH - ?Seizure prior to admission - Admitting Na 116, fareed to 129 following 200cc 3% saline and diuresis of 3L - DDAVP started, D5W given to bring Na to 125. Na 122 this morning. - Nephro consulted. Recommend continuing DDAVP 2mcg Q8H x3 more doses and d/c D5W. Currently fluid restricted. Discussed w/ team, will hold DDAVP and D5W at this time but continue fluid restriction. - No JESSICA on admission - BMP Q4H - - No concerns at this time. - Adequate UoP ENDO - Hypothyroidism - Continue synthroid 75mcg daily HEME - Stable H&H. ID - - Leukocytosis to 15, suspected aspiration. ? Aspiration pna. No focal infiltrate on CXR, no hypoxia - Continue amp/sulbactam Q6H. Reevaluate need for abx in 24-48 hours. INTEGUMENTARY - no acute concerns LINES/IV ACCESS - PIVs intact. DVT PROPHYLAXIS - - SCDs Thank you for allowing us to be part of this patient's care. Please refer to Dr. Hutchinson's documentation for any further recommendations. (2) AMS (altered mental status): (3) Hyponatremia: (4) Leukocytosis: (5) Prolonged QT interval: (6) Metabolic encephalopathy: (7) DVT prophylaxis: (8) Brain lesion: (9) Abdominal pain: (10) Alcoholism: (11) AMS (altered mental status): (12) Wernicke encephalopathy: Supervising Physician Co-Signing Physician Notes Seen and examined. Case discussed on multidisciplinary rounds and with patient at bedside as well as with ICU nurse. EMR extensively reviewed. Impression: 58-year-old female with extensive history of alcohol abuse admitted after questionable seizure activity at alf. Found to be hyponatremic and received hypertonic saline in the emergency room with rapid overcorrection. She is in the ICU for continued laboratory checks Recommendations: 1. Hyponatremia: Suspect SIADH. Appreciate nephrology consultation. Will discontinue fluids for now and continue DDAVP per nephrology recommendations. No indication for hypertonic saline. 2. Encephalopathy: Unclear etiology. Given the rapid rise of her sodium, CPM is on the differential however her altered mental status appears to predate the rapid correction and sodium. Continue to follow for now. According to prior notes the patient does have a history of Warnicke's encephalopathy. High-dose thiamine will be continued. 3. History of alcohol abuse: Continue high-dose thiamine. She is receiving glucose. Continue to follow. Additional work-up per neurology. 4. Questionable seizure: This was communicated by the outside [facility] facility. No seizure activity identified here. Defer to neurology as to whether or not long-term antiepileptics need to be continued. Her exam is nonfocal currently and I doubt absence seizure's. Will defer EEG to neurology. The patient does not appear to require ICU level care currently. Will discuss with hospitalist to transfer out to the floor if her sodium remains stable. Subjective PT seen at bedside this morning. Minimally conversive, does not verbalize answers to questions and rolls over/pulls blanket of head to sleep. Opens eyes spontaneously, tolerates physical exam. Shakes head to indicate no shortness of breath, chest pain, abdominal pain. Review of Systems Review of Systems: Limited by mental status/pt compliance. Physical Exam Physical Exam: General: Opens eyes spontaneously, does not answer questions. Tolerates exam. NAD. HEENT: Atraumatic, normocephalic. No scleral icterus. PERLAA. Pulm: LLL crackles, RLL clear and overall grossly without -wheezes, -rales, - rhonchi. Symmetrical chest rise. No increased work of breathing. No respiratory distress. Cardiac: RRR, -mrg. Radial pulses intact and symmetrical. Abdominal: Nontender, nondistended, soft. BS present. Extremities: Warm, dry. PT pulses intact bilaterally. No edema appreciated. Results & Data Vital Signs (Past 12 Hours) Vital Signs Temp Pulse Pulse Resp BP BP Pulse Ox 08/31/19 04:01 37.5 C 61 20 94 08/31/19 04:00 37.5 C 61 19 124/64 94 08/31/19 03:45 65 18 95 08/31/19 03:30 63 18 94 08/31/19 03:15 61 19 96 08/31/19 03:01 67 17 94 08/31/19 03:00 61 20 119/77 97 08/31/19 02:45 66 18 98 08/31/19 02:30 67 24 94 08/31/19 02:15 68 21 98 08/31/19 02:01 63 15 94 08/31/19 02:00 67 18 120/78 92 08/31/19 01:46 62 16 96 08/31/19 01:30 63 16 93 08/31/19 01:15 65 17 94 08/31/19 01:01 63 10 L 115/86 96 08/31/19 01:00 62 22 95 08/31/19 00:45 62 21 95 08/31/19 00:30 64 18 95 08/31/19 00:15 67 18 93 08/31/19 00:03 66 16 94 08/31/19 00:02 36.9 C 64 18 122/87 97 08/31/19 00:00 36.9 C 69 15 08/30/19 23:57 65 08/30/19 23:45 74 18 94 08/30/19 23:30 77 20 94 08/30/19 23:15 72 19 94 08/30/19 23:01 75 19 124/79 94 08/30/19 23:00 76 21 88 L 08/30/19 22:45 79 18 94 08/30/19 22:30 72 24 91 08/30/19 22:15 36.6 C 81 18 91 08/30/19 22:06 77 16 95 08/30/19 22:01 78 12 105/55 L 91 08/30/19 22:00 73 25 H 78 L 08/30/19 21:45 63 16 139/71 92 08/30/19 21:41 36.9 C 75 77 21 105/55 L 91 08/30/19 21:34 68 24 92 08/30/19 21:30 36.9 C 67 18 109/67 92 08/30/19 21:27 36.9 C 67 75 26 H 109/67 105/55 L 90 08/30/19 21:01 70 17 110/61 94 08/30/19 21:00 69 17 94 08/30/19 20:58 76 16 124/68 94 08/30/19 20:33 75 18 123/83 92 08/30/19 20:30 73 28 H 94 08/30/19 20:15 73 19 127/77 93 08/30/19 20:10 74 24 139/66 93 08/30/19 19:00 69 22 107/73 92 08/30/19 18:52 36.8 C 77 20 172/148 H 92 08/30/19 18:47 79 19 172/148 H 91 Resident Activity Tracking Resident Involvement: Resident Care Provided Care Provided: Adult Hospital Medicine (1) Leukocytosis Leukocytosis type: unspecified Qualified Code(s): D72.829 - Elevated white blood cell count, unspecified (2) AMS (altered mental status) Altered mental status type: unspecified Qualified Code(s): R41.82 - Altered mental status, unspecified (3) AMS (altered mental status) Altered mental status type: unspecified Qualified Code(s): R41.82 - Altered mental status, unspecified (4) Abdominal pain Abdominal location: unspecified location Qualified Code(s): R10.9 - Unspecified abdominal pain
[2019-08-31 06:36] LABS: Basophils # (auto) 0.01 K/uL (0-0.2); Basophils % (auto) 0.1 %; Eosinophils # (auto) 0.03 K/uL (0-0.5); Eosinophils % (auto) 0.2 %; Hematocrit (blood only) 38.3 % (37-47); Hemoglobin 13.7 g/dL (12.0-16.0); Immature Granulocytes # (auto) 0.03 K/uL (0.00-0.02); Immature Granulocytes % (auto) 0.2 %; Lymphocytes # (auto) 1.82 K/uL (1.2-3.4); Lymphocytes % (auto) 12.1 %; Mean Corpuscular Hemoglobin 31.9 pg (25-34); Mean Corpuscular Hgb Conc 35.8 g/dL (32-36); Mean Corpuscular Volume 89.1 fL (80-100); Mean Platelet Volume 9.6 fL (7.4-10.4); Monocytes # (auto) 1.23 K/uL (0.11-0.59); Monocytes % (auto) 8.2 %; Neutrophils # (auto) 11.95 K/uL (1.4-6.5); Neutrophils % (auto) 79.2 %; Platelet Count 236 K/uL (130-400); RDW Coefficient of Variation 13.3 % (11.5-14.5); RDW Standard Deviation 43.3 fL (36.4-46.3); White Blood Count 15.07 K/uL (4.8-10.8)
--- NOTE | 2019-08-31 06:45 | Neurology Consultation ---
Date of Consultation August 31, 2019 Assessment & Plan (1) Seizure: A 58 year old woman with suspected chronic static encephalopathy secondary to reported wernicke encephalopathy from known alcohol abuse admitted with reported witnessed seizure. Patient currently non verbal. unclear baseline but patient documented to have history of dementia. She is moving all 4 extremities. No abrasion noted on tongue. She does track when I am in the room. No tremor or myoclonus. Chronic alcohol use is a risk for seizure. Patient noted to be hyponatremic although given the level I do not believe this was the cause of her seizure although can certainly low seizure threshold. Imaging once again conf irmed known frontal skull lesions. - Agree with continuing Keppra 500 mg BID - Would check a Ck level as patient reported to have general tonic clonic seizure. - Continue thiamine - Routine EEG pending. attempted this morning but patient was not compliant. - Neurosurgery consult as outpatient for skull lesions - Agree with con (2) AMS (altered mental status): (3) Hyponatremia: History of Present Illness Reason for Consultation: Seizure Requesting Physician: Dr. Sheldon Agee Attending Physician: Francie Brower, History of Present Illness A 58 year old woman with Hx of alcohol use disorder and wernicke encephalopathy, and dementia admitted last eveing with new onset seizure. Witnessed at home while sitting in wheelchair. Patient stiffened with GTC seizure. More confused then baseline. ON admission noted to have low sodium and elevated WBC. Patient started on Keppra and Iv thiamine. EEG ordered and Neurology consulted for further recommendations. Per chart review, patient has been a chronic heavy alcoholic since she was in college. She drinks 4-5 beers/day and was diagnosed with Wernicke's encephalopathy a few years ago. History is very limited as patient is non verbal. No collateral or family at bedside. Chart reviewed in [facility] and no records were found. Allergies Allergy/AdvReac Type Severity Reaction Status Date / Time No Known Allergies Allergy Unverified 08/30/19 19:57 Home Medications Home Medications Medication Instructions Recorded Confirmed Type folic acid 1 mg PO QAM 30 Days #30 tab 08/23/19 08/30/19 Rx multivitamin [Daily-Lauryn] 1 tab PO QAM 30 Days #30 tab 08/23/19 08/30/19 Rx thiamine HCl (vitamin B1) [Vitamin 100 mg PO QAM 30 Days #30 tab 08/23/19 08/30/19 Rx B-1] gabapentin [Neurontin] 100 mg PO HS #30 cap 08/25/19 08/30/19 Rx acetaminophen [Tylenol] 650 mg PO Q4 PRN 08/30/19 08/30/19 History insulin lispro [Humalog U-100 1 sliding scale dose SUBCUT 08/30/19 08/30/19 History Insulin] USEASDIRECTD levothyroxine [Synthroid] 75 mcg PO DAILY 08/30/19 08/30/19 History magnesium hydroxide [Milk of 30 ml PO UD PRN 08/30/19 08/30/19 History Magnesia] Patient History Medical History Alcoholism Wernickes encephalopathy Family History Other Family history unobtainable Social History Preferred Language: Macedonian Communication Ability: Unable Autism Teacher Required: No Beliefs That Will Affect Care: None marital status: Single Current Living Situation: Alf Smoking Status: Unknown if ever smoked Hx Alcohol Use: Yes Alcohol type: beer Alcohol type Comment: 4-5 beers/day Hx Substance Use: No Physical Exam Physical Exam: EXAM: Constitutional: appears older than stated age, chronically ill appearing, no distress Head and Face: normocephalic and atraumatic Eyes: normal lids, normal conjunctiva Neck: supple Respiratory: normal effort Cardiovascular: normal pulses Abdomen:distended Skin: no rashes Psychiatric: flat affect NEUROLOGIC EXAMINATION: Appearance: no acute distress Orientation: sleeping but arouses to voice Mental Status: lethargic Memory: BUTCH non verbal Attention: decreased Knowledge: BUTCH non verbal Language: intermittently following simple commands Speech: non verbal Cranial Nerves: CN 2 - no visual defect on confrontation and pupils round, equal, reactive to light CN 3, 4, 6 - extra-ocular movements intact and no nystagmus CN 5 - facial sensation intact CN 7 - no facial asymmetry CN 8 - intact hearing CN 9, 10 - palate symmetric CN 11 -holding head up shrug CN 12 - tongue midline Gait:deferred Coordination:no myoclonus or tremor Sensory: intact light touch Muscle Tone: normal Muscle exam: Moving all 4 extremities Reflexes: [place] negative, no clonus Results & Data Vital Signs (Past 12 Hours) Vital Signs Temp Pulse Pulse Resp BP BP Pulse Ox 08/31/19 04:01 37.5 C 61 20 94 08/31/19 04:00 37.5 C 61 19 124/64 94 08/31/19 03:45 65 18 95 08/31/19 03:30 63 18 94 08/31/19 03:15 61 19 96 08/31/19 03:01 67 17 94 08/31/19 03:00 61 20 119/77 97 08/31/19 02:45 66 18 98 08/31/19 02:30 67 24 94 08/31/19 02:15 68 21 98 08/31/19 02:01 63 15 94 08/31/19 02:00 67 18 120/78 92 08/31/19 01:46 62 16 96 08/31/19 01:30 63 16 93 08/31/19 01:15 65 17 94 08/31/19 01:01 63 10 L 115/86 96 08/31/19 01:00 62 22 95 08/31/19 00:45 62 21 95 08/31/19 00:30 64 18 95 08/31/19 00:15 67 18 93 08/31/19 00:03 66 16 94 08/31/19 00:02 36.9 C 64 18 122/87 97 08/31/19 00:00 36.9 C 69 15 08/30/19 23:57 65 08/30/19 23:45 74 18 94 08/30/19 23:30 77 20 94 08/30/19 23:15 72 19 94 08/30/19 23:01 75 19 124/79 94 08/30/19 23:00 76 21 88 L 08/30/19 22:45 79 18 94 08/30/19 22:30 72 24 91 08/30/19 22:15 36.6 C 81 18 91 08/30/19 22:06 77 16 95 08/30/19 22:01 78 12 105/55 L 91 08/30/19 22:00 73 25 H 78 L 08/30/19 21:45 63 16 139/71 92 08/30/19 21:41 36.9 C 75 77 21 105/55 L 91 08/30/19 21:34 68 24 92 11/24/19 21:30 36.9 C 67 18 109/67 92 08/30/19 21:27 36.9 C 67 75 26 H 109/67 105/55 L 90 08/30/19 21:01 70 17 110/61 94 08/30/19 21:00 69 17 94 08/30/19 20:58 76 16 124/68 94 08/30/19 20:33 75 18 123/83 92 08/30/19 20:30 73 28 H 94 08/30/19 20:15 73 19 127/77 93 08/30/19 20:10 74 24 139/66 93 08/30/19 19:00 69 22 107/73 92 08/30/19 18:52 36.8 C 77 20 172/148 H 92 08/30/19 18:47 79 19 172/148 H 91 Diagnostic Findings MRI Brain w/wo: 1. Redemonstration of the left frontal bone lesions measuring 1.6 and 1.4 cm. These are technically indeterminate but could represent benign atypical hemangioma or malignant lesions. No evidence for intracranial extension. Consider biopsy or comparison to old studies for further evaluation. 2. There is also a 9 mm lobular lesion within the left orbital apex which abuts but does not displace the optic nerve. This is also indeterminate but favors a meningioma. CT Head non contrast 08/30/2019: No acute intracranial abnormality. Frontal bony lesions as previously described are considered unchanged Na 125 UA Negative WBC 15 (1) AMS (altered mental status) Altered mental status type: unspecified Qualified Code(s): R41.82 - Altered mental status, unspecified
[2019-08-31 07:15] LABS: BUN Creatinine Ratio 8.4 (10-20); Calcium 8.8 mg/dl (8.5-10.1); Creatinine Clr Calc Pharmacy 111.7 ml/min; Est GFR (African American) 122.9; Est GFR (Non-African American) 106.1; Potassium 3.7 mmol/L (3.5-5.1)
[2019-08-31] MEDS ORDERED: INFLUENZA ADMINISTRATION CHARGE ONE (08:00)
[2019-08-31] MEDS ORDERED: INFLUENZA VIRUS QUAD VACCINE 0.5 ML SYR IM ONE (08:00)
[2019-08-31] MEDS: INSULIN ASPART 100 UNITS/ML 3 ML PEN SC SCH ×4 (08:05→21:38)
[2019-08-31] MEDS ORDERED: FOLIC ACID 1 MG TAB PO SCH (09:00)
[2019-08-31] MEDS ORDERED: THIAMINE HCL 100 MG TAB PO SCH (09:00)
[2019-08-31] MEDS ORDERED: THIAMINE HCL 100 MG in SYRINGE 9 ML IV SCH (09:00)
[2019-08-31] MEDS ORDERED: FOLIC ACID 1 MG in SYRINGE 9.8 ML IV SCH (09:00)
[2019-08-31] MEDS: MULTIVITAMIN TAB PO SCH (09:28)
--- NOTE | 2019-08-31 09:56 | Nephrology Consultation ---
Date of Consultation August 31, 2019 Assessment & Plan (1) Hyponatremia: Patient with hyponatremia likely due to low solute intake. Urine is mild to 115 which is on the lower side. Urine sodium was high at 43 but likely after receiving IV fluids. Patient overcorrected with IV fluids but now back to expected sodium level at 122. Target rate of correction is 6 points in 24 hours. -Recommend continuing DDAVP 2 mcg every 8 hourly for 2-3 doses. -Stop D5 water. Goal is to keep the patient around 122 until this evening then allow her sodium to rise again. (2) AMS (altered mental status): Multifactorial including encephalopathy, postictal state and severe hyponatremia. Monitor mental status. And continue gradual correction of hyponatremia. (3) Seizure: Patient with seizure possibly due to severe hyponatremia and history of brain tumor. Continue work-up for other etiology of seizures. Patient is on Keppra per primary team History of Present Illness Requesting Physician: Francie Brower DO Attending Physician: Francie Brower DO History of Present Illness This is 58-year-old female who was admitted on 08/30/2019 with seizure and severe hyponatremia 116. I am seeing her for etiology and management of hypona tremia. Past medical history significant for dementia as per records, possible Wernicke encephalopathy, hypothyroidism, past alcohol abuse, history of brain tumor as per records. Patient is unable to give history due to altered mental status. Overnight patient received hypertonic saline and sodium fareed to 129. She then received DDAVP and D5 water which reduced the sodium this morning back to 122. No more seizures this morning. She had urine is mild to 115 and urine sodium of 43. Urine output was 7 L and net -3 L. Allergies Allergy/AdvReac Type Severity Reaction Status Date / Time No Known Allergies Allergy Unverified 08/30/19 19:57 Home Medications Home Medications Medication Instructions Recorded Confirmed Type folic acid 1 mg PO QAM 30 Days #30 tab 08/23/19 08/30/19 Rx multivitamin [Daily-Lauryn] 1 tab PO QAM 30 Days #30 tab 08/23/19 08/30/19 Rx thiamine HCl (vitamin B1) [Vitamin 100 mg PO QAM 30 Days #30 tab 08/23/19 08/30/19 Rx B-1] gabapentin [Neurontin] 100 mg PO HS #30 cap 08/25/19 08/30/19 Rx acetaminophen [Tylenol] 650 mg PO Q4 PRN 08/30/19 08/30/19 History insulin lispro [Humalog U-100 1 sliding scale dose SUBCUT 08/30/19 08/30/19 History Insulin] USEASDIRECTD levothyroxine [Synthroid] 75 mcg PO DAILY 08/30/19 08/30/19 History magnesium hydroxide [Milk of 30 ml PO UD PRN 08/30/19 08/30/19 History Magnesia] Patient History Medical History Alcoholism Wernickes encephalopathy Family History Other Family history unobtainable Social History Preferred Language: Kyrgyz Communication Ability: Impaired Auto Detailer Required: No Beliefs That Will Affect Care: None marital status: Single Current Living Situation: Long Term Smoking Status: Unknown if ever smoked Hx Alcohol Use: Yes Alcohol type: beer Alcohol type Comment: 4-5 beers/day Hx Substance Use: No Review of Systems Review of Systems: Unobtainable due to cognitive status Physical Exam Physical Exam: General exam: Appears comfortable, no acute distress HEENT: Pupils are equal and reactive to light Neck: No JVD, neck is supple trachea is midline Respiratory system: Clear breath sounds bilaterally. Gastrointestinal: Abdomen is soft, non distended, non tender, bowel sounds are present CVS: Regular rate and rhythm. No murmurs, rubs or gallops Musculoskeletal: No joint or muscle tenderness Extremities: Non tender, no edema, peripheral pulses are present Neuro: Patient is drowsy and unable to give history Skin: No rashes Results & Data Vital Signs (Past 12 Hours) Vital Signs Temp Pulse Pulse Resp BP Pulse Ox 08/31/19 07:01 60 18 95 08/31/19 07:00 59 L 18 116/66 95 08/31/19 06:45 59 L 17 95 08/31/19 06:30 67 15 08/31/19 06:15 60 17 93 08/31/19 06:01 59 L 17 95 08/31/19 06:00 60 17 116/69 95 08/31/19 05:45 60 18 95 08/31/19 05:30 59 L 20 97 08/31/19 05:15 60 17 94 08/31/19 05:01 62 26 H 114/83 97 08/31/19 05:00 63 23 97 08/31/19 04:45 61 16 95 08/31/19 04:30 63 26 H 96 08/31/19 04:15 60 20 97 08/31/19 04:01 37.5 C 61 20 94 08/31/19 04:00 37.5 C 61 19 124/64 94 08/31/19 03:45 65 18 95 08/31/19 03:30 63 18 94 08/31/19 03:15 61 19 96 08/31/19 03:01 67 17 94 08/31/19 03:00 61 20 119/77 97 08/31/19 02:45 66 18 98 08/31/19 02:30 67 24 94 08/31/19 02:15 68 21 98 08/31/19 02:01 63 15 94 08/31/19 02:00 67 18 120/78 92 08/31/19 01:46 62 16 96 08/31/19 01:30 63 16 93 08/31/19 01:15 65 17 94 08/31/19 01:01 63 10 L 115/86 96 08/31/19 01:00 62 22 95 08/31/19 00:45 62 21 95 08/31/19 00:30 64 18 95 08/31/19 00:15 67 18 93 08/31/19 00:03 66 16 94 08/31/19 00:02 36.9 C 64 18 122/87 97 08/31/19 00:00 36.9 C 69 15 08/30/19 23:57 65 08/30/19 23:45 74 18 94 08/30/19 23:30 77 20 94 08/30/19 23:15 72 19 94 08/30/19 23:01 75 19 124/79 94 08/30/19 23:00 76 21 88 L 08/30/19 22:45 79 18 94 08/30/19 22:30 72 24 91 08/30/19 22:15 36.6 C 81 18 91 08/30/19 22:06 77 16 95 08/30/19 22:01 78 12 105/55 L 91 08/30/19 22:00 73 25 H 78 L Laboratory Results Laboratory Results - last 24 hr 08/30/19 08/30/19 08/30/19 18:59 18:59 18:59 WBC 19.52 H RBC 4.42 Hgb 14.1 POC Hgb Hct 39.5 POC Hct MCV 89.4 MCH 31.9 MCHC 35.7 RDW Std Deviation 43.7 RDW Coeff of Ketan 13.3 Plt Count 262 MPV 10.2 Immature Gran % (Auto) 0.4 Neut % (Auto) 82.5 Lymph % (Auto) 8.6 Graves % (Auto) 8.1 Eos % (Auto) 0.3 Baso % (Auto) 0.1 Immature Gran # (Auto) 0.07 H Neut # (Auto) 16.12 H Lymph # (Auto) 1.68 Graves # (Auto) 1.58 H Eos # (Auto) 0.06 Baso # (Auto) 0.01 PT INR APTT PTT Ratio POC Sodium Sodium 116 L* POC Potassium Potassium 3.9 POC Chloride Chloride 83 L Carbon Dioxide 25 POC Total CO2 Anion Gap 9.0 POC Anion Gap POC BUN BUN 8 Creatinine 0.62 POC Creatinine Est Cr Clr Drug Dosing 104.1 Est GFR ( Amer) 116.0 Est GFR (Non-Af Amer) 100.1 BUN/Creatinine Ratio 12.2 Glucose 126 H POC Glucose POC Glucose (other) Osmolality Calcium 9.0 POC Ioniz Calcium Fernando Magnesium 1.4 L Total Bilirubin 0.8 AST 22 ALT 37 Alkaline Phosphatase 76 Ammonia POC Troponin I NT-Pro-B Natriuret Pep 406 Total Protein 7.0 Albumin 3.2 L Globulin 3.8 Albumin/Globulin Ratio 0.9 Folate TSH 3.240 FSH Luteinizing Hormone Prolactin Urine Color Urine Appearance Urine pH Ur Specific [place] Urine Protein Urine Glucose (UA) Urine Ketones Urine Blood Urine Nitrite Urine Bilirubin Urine Urobilinogen Ur Leukocyte Esterase Urine Osmolality Ur Random Sodium Nasal Screen MRSA (PCR) Salicylates Urine Opiates Screen Ur Methadone, Qual Acetaminophen Urine Barbiturates Ur Phencyclidine (PCP) U Amphetamin/Meth Scrn MDMA (Ecstasy) Screen U Benzodiazepines Scrn Ur Cocaine Metabolite U Marijuana (THC) Screen Ethyl Alcohol mg/dL < 3.0 08/30/19 08/30/19 08/30/19 18:59 18:59 19:00 WBC RBC Hgb POC Hgb Hct POC Hct MCV MCH MCHC RDW Std Deviation RDW Coeff of Ketan Plt Count MPV Immature Gran % (Auto) Neut % (Auto) Lymph % (Auto) Graves % (Auto) Eos % (Auto) Baso % (Auto) Immature Gran # (Auto) Neut # (Auto) Lymph # (Auto) Graves # (Auto) Eos # (Auto) Baso # (Auto) PT 11.4 INR 1.1 APTT 28.7 PTT Ratio 1.1 POC Sodium Sodium POC Potassium Potassium POC Chloride Chloride Carbon Dioxide POC Total CO2 Anion Gap POC Anion Gap POC BUN BUN Creatinine POC Creatinine Est Cr Clr Drug Dosing Est GFR ( Amer) Est GFR (Non-Af Amer) BUN/Creatinine Ratio Glucose POC Glucose POC Glucose (other) Osmolality 244 L Calcium POC Ioniz Calcium Fernando Magnesium Total Bilirubin AST ALT Alkaline Phosphatase Ammonia POC Troponin I NT-Pro-B Natriuret Pep Total Protein Albumin Globulin Albumin/Globulin Ratio Folate TSH FSH Luteinizing Hormone Prolactin Urine Color Urine Appearance Urine pH Ur Specific [place] Urine Protein Urine Glucose (UA) Urine Ketones Urine Blood Urine Nitrite Urine Bilirubin Urine Urobilinogen Ur Leukocyte Esterase Urine Osmolality Ur Random Sodium Nasal Screen MRSA (PCR) Salicylates < 1.7 L Urine Opiates Screen Ur Methadone, Qual Acetaminophen < 2 L Urine Barbiturates Ur Phencyclidine (PCP) U Amphetamin/Meth Scrn MDMA (Ecstasy) Screen U Benzodiazepines Scrn Ur Cocaine Metabolite U Marijuana (THC) Screen Ethyl Alcohol mg/dL 08/30/19 08/30/19 08/30/19 19:00 19:03 19:03 WBC RBC Hgb POC Hgb 15.0 Hct POC Hct 44 MCV MCH MCHC RDW Std Deviation RDW Coeff of Ketan Plt Count MPV Immature Gran % (Auto) Neut % (Auto) Lymph % (Auto) Graves % (Auto) Eos % (Auto) Baso % (Auto) Immature Gran # (Auto) Neut # (Auto) Lymph # (Auto) Graves # (Auto) Eos # (Auto) Baso # (Auto) PT INR APTT PTT Ratio POC Sodium 116 L* Sodium POC Potassium 4.0 Potassium POC Chloride 81 L Chloride Carbon Dioxide POC Total CO2 25 Anion Gap POC Anion Gap 15.0 L POC BUN 6 L BUN Creatinine POC Creatinine 0.5 L Est Cr Clr Drug Dosing Est GFR ( Amer) Est GFR (Non-Af Amer) BUN/Creatinine Ratio Glucose POC Glucose POC Glucose (other) 131 H Osmolality Calcium POC Ioniz Calcium Fernando 1.06 L Magnesium Total Bilirubin AST ALT Alkaline Phosphatase Ammonia POC Troponin I 0.06 H NT-Pro-B Natriuret Pep Total Protein Albumin Globulin Albumin/Globulin Ratio Folate TSH FSH 81.61 Luteinizing Hormone 23.53 Prolactin 31.19 Urine Color Urine Appearance Urine pH Ur Specific [place] Urine Protein Urine Glucose (UA) Urine Ketones Urine Blood Urine Nitrite Urine Bilirubin Urine Urobilinogen Ur Leukocyte Esterase Urine Osmolality Ur Random Sodium Nasal Screen MRSA (PCR) Salicylates Urine Opiates Screen Ur Methadone, Qual Acetaminophen Urine Barbiturates Ur Phencyclidine (PCP) U Amphetamin/Meth Scrn MDMA (Ecstasy) Screen U Benzodiazepines Scrn Ur Cocaine Metabolite U Marijuana (THC) Screen Ethyl Alcohol mg/dL 08/30/19 08/30/19 08/30/19 20:24 20:24 20:24 WBC RBC Hgb POC Hgb Hct POC Hct MCV MCH MCHC RDW Std Deviation RDW Coeff of Ketan Plt Count MPV Immature Gran % (Auto) Neut % (Auto) Lymph % (Auto) Graves % (Auto) Eos % (Auto) Baso % (Auto) Immature Gran # (Auto) Neut # (Auto) Lymph # (Auto) Graves # (Auto) Eos # (Auto) Baso # (Auto) PT INR APTT PTT Ratio POC Sodium Sodium POC Potassium Potassium POC Chloride Chloride Carbon Dioxide POC Total CO2 Anion Gap POC Anion Gap POC BUN BUN Creatinine POC Creatinine Est Cr Clr Drug Dosing Est GFR ( Amer) Est GFR (Non-Af Amer) BUN/Creatinine Ratio Glucose POC Glucose POC Glucose (other) Osmolality Calcium POC Ioniz Calcium Fernando Magnesium Total Bilirubin AST ALT Alkaline Phosphatase Ammonia POC Troponin I NT-Pro-B Natriuret Pep Total Protein Albumin Globulin Albumin/Globulin Ratio Folate TSH FSH Luteinizing Hormone Prolactin Urine Color Yellow Urine Appearance Clear Urine pH 8.0 H Ur Specific [place] 1.004 Urine Protein Negative Urine Glucose (UA) Negative Urine Ketones Negative Urine Blood Negative Urine Nitrite Negative Urine Bilirubin Negative Urine Urobilinogen Negative Ur Leukocyte Esterase Negative Urine Osmolality 115 L Ur Random Sodium 43 Nasal Screen MRSA (PCR) Salicylates Urine Opiates Screen Ur Methadone, Qual Acetaminophen Urine Barbiturates Ur Phencyclidine (PCP) U Amphetamin/Meth Scrn MDMA (Ecstasy) Screen U Benzodiazepines Scrn Ur Cocaine Metabolite U Marijuana (THC) Screen Ethyl Alcohol mg/dL 08/30/19 08/30/19 08/30/19 20:24 21:47 21:48 WBC RBC Hgb POC Hgb Hct POC Hct MCV MCH MCHC RDW Std Deviation RDW Coeff of Ketan Plt Count MPV Immature Gran % (Auto) Neut % (Auto) Lymph % (Auto) Graves % (Auto) Eos % (Auto) Baso % (Auto) Immature Gran # (Auto) Neut # (Auto) Lymph # (Auto) Graves # (Auto) Eos # (Auto) Baso # (Auto) PT INR APTT PTT Ratio POC Sodium Sodium POC Potassium Potassium POC Chloride Chloride Carbon Dioxide POC Total CO2 Anion Gap POC Anion Gap POC BUN BUN Creatinine POC Creatinine Est Cr Clr Drug Dosing Est GFR ( Amer) Est GFR (Non-Af Amer) BUN/Creatinine Ratio Glucose POC Glucose 130 H POC Glucose (other) Osmolality Calcium POC Ioniz Calcium Fernando Magnesium Total Bilirubin AST ALT Alkaline Phosphatase Ammonia POC Troponin I NT-Pro-B Natriuret Pep Total Protein Albumin Globulin Albumin/Globulin Ratio Folate TSH FSH Luteinizing Hormone Prolactin Urine Color Urine Appearance Urine pH Ur Specific [place] Urine Protein Urine Glucose (UA) Urine Ketones Urine Blood Urine Nitrite Urine Bilirubin Urine Urobilinogen Ur Leukocyte Esterase Urine Osmolality Ur Random Sodium Nasal Screen MRSA (PCR) Negative Salicylates Urine Opiates Screen Neg Ur Methadone, Qual Neg Acetaminophen Urine Barbiturates Neg Ur Phencyclidine (PCP) Neg U Amphetamin/Meth Scrn Neg MDMA (Ecstasy) Screen Neg U Benzodiazepines Scrn Neg Ur Cocaine Metabolite Neg U Marijuana (THC) Screen Neg Ethyl Alcohol mg/dL 08/30/19 08/30/19 08/31/19 21:51 21:51 00:19 WBC RBC Hgb POC Hgb Hct POC Hct MCV MCH MCHC RDW Std Deviation RDW Coeff of Ketan Plt Count MPV Immature Gran % (Auto) Neut % (Auto) Lymph % (Auto) Graves % (Auto) Eos % (Auto) Baso % (Auto) Immature Gran # (Auto) Neut # (Auto) Lymph # (Auto) Graves # (Auto) Eos # (Auto) Baso # (Auto) PT INR APTT PTT Ratio POC Sodium Sodium 129 L D Cancelled POC Potassium Potassium 3.5 POC Chloride Chloride 96 L Carbon Dioxide 27 POC Total CO2 Anion Gap 6.0 POC Anion Gap POC BUN BUN 6 L Creatinine 0.62 POC Creatinine Est Cr Clr Drug Dosing 93.7 Est GFR ( Amer) 116.0 Est GFR (Non-Af Amer) 100.1 BUN/Creatinine Ratio 10.4 Glucose 134 H POC Glucose POC Glucose (other) Osmolality Calcium 9.1 POC Ioniz Calcium Fernando Magnesium 2.1 Total Bilirubin AST ALT Alkaline Phosphatase Ammonia POC Troponin I NT-Pro-B Natriuret Pep Total Protein Albumin Globulin Albumin/Globulin Ratio Folate > 24.00 TSH FSH Luteinizing Hormone Prolactin Urine Color Urine Appearance Urine pH Ur Specific [place] Urine Protein Urine Glucose (UA) Urine Ketones Urine Blood Urine Nitrite Urine Bilirubin Urine Urobilinogen Ur Leukocyte Esterase Urine Osmolality Ur Random Sodium Nasal Screen MRSA (PCR) Salicylates Urine Opiates Screen Ur Methadone, Qual Acetaminophen Urine Barbiturates Ur Phencyclidine (PCP) U Amphetamin/Meth Scrn MDMA (Ecstasy) Screen U Benzodiazepines Scrn Ur Cocaine Metabolite U Marijuana (THC) Screen Ethyl Alcohol mg/dL 08/31/19 08/31/19 08/31/19 00:19 03:48 06:29 WBC RBC Hgb POC Hgb Hct POC Hct MCV MCH MCHC RDW Std Deviation RDW Coeff of Ketan Plt Count MPV Immature Gran % (Auto) Neut % (Auto) Lymph % (Auto) Graves % (Auto) Eos % (Auto) Baso % (Auto) Immature Gran # (Auto) Neut # (Auto) Lymph # (Auto) Graves # (Auto) Eos # (Auto) Baso # (Auto) PT INR APTT PTT Ratio POC Sodium Sodium 127 L 125 L POC Potassium Potassium 3.3 L POC Chloride Chloride 94 L Carbon Dioxide 27 POC Total CO2 Anion Gap 6.0 POC Anion Gap POC BUN BUN 5 L Creatinine 0.75 POC Creatinine Est Cr Clr Drug Dosing 77.5 Est GFR ( Amer) 102.6 Est GFR (Non-Af Amer) 88.5 BUN/Creatinine Ratio 6.7 L Glucose 216 H POC Glucose 138 H POC Glucose (other) Osmolality Calcium 8.6 POC Ioniz Calcium Fernando Magnesium 2.1 Total Bilirubin AST ALT Alkaline Phosphatase Ammonia POC Troponin I NT-Pro-B Natriuret Pep Total Protein Albumin Globulin Albumin/Globulin Ratio Folate TSH FSH Luteinizing Hormone Prolactin Urine Color Urine Appearance Urine pH Ur Specific [place] Urine Protein Urine Glucose (UA) Urine Ketones Urine Blood Urine Nitrite Urine Bilirubin Urine Urobilinogen Ur Leukocyte Esterase Urine Osmolality Ur Random Sodium Nasal Screen MRSA (PCR) Salicylates Urine Opiates Screen Ur Methadone, Qual Acetaminophen Urine Barbiturates Ur Phencyclidine (PCP) U Amphetamin/Meth Scrn MDMA (Ecstasy) Screen U Benzodiazepines Scrn Ur Cocaine Metabolite U Marijuana (THC) Screen Ethyl Alcohol mg/dL 08/31/19 08/31/19 08/31/19 06:30 06:30 06:30 WBC 15.07 H RBC 4.30 Hgb 13.7 POC Hgb Hct 38.3 POC Hct MCV 89.1 MCH 31.9 MCHC 35.8 RDW Std Deviation 43.3 RDW Coeff of Ketan 13.3 Plt Count 236 MPV 9.6 Immature Gran % (Auto) 0.2 Neut % (Auto) 79.2 Lymph % (Auto) 12.1 Graves % (Auto) 8.2 Eos % (Auto) 0.2 Baso % (Auto) 0.1 Immature Gran # (Auto) 0.03 H Neut # (Auto) 11.95 H Lymph # (Auto) 1.82 Graves # (Auto) 1.23 H Eos # (Auto) 0.03 Baso # (Auto) 0.01 PT INR APTT PTT Ratio POC Sodium Sodium 122 L POC Potassium Potassium 3.7 POC Chloride Chloride 90 L Carbon Dioxide 25 POC Total CO2 Anion Gap 8.0 POC Anion Gap POC BUN BUN 4 L Creatinine 0.52 L POC Creatinine Est Cr Clr Drug Dosing 111.7 Est GFR ( Amer) 122.9 Est GFR (Non-Af Amer) 106.1 BUN/Creatinine Ratio 8.4 L Glucose 129 H POC Glucose POC Glucose (other) Osmolality Calcium 8.8 POC Ioniz Calcium Fernando Magnesium 2.0 Total Bilirubin AST ALT Alkaline Phosphatase Ammonia 24.1 POC Troponin I NT-Pro-B Natriuret Pep Total Protein Albumin Globulin Albumin/Globulin Ratio Folate TSH FSH Luteinizing Hormone Prolactin Urine Color Urine Appearance Urine pH Ur Specific [place] Urine Protein Urine Glucose (UA) Urine Ketones Urine Blood Urine Nitrite Urine Bilirubin Urine Urobilinogen Ur Leukocyte Esterase Urine Osmolality Ur Random Sodium Nasal Screen MRSA (PCR) Salicylates Urine Opiates Screen Ur Methadone, Qual Acetaminophen Urine Barbiturates Ur Phencyclidine (PCP) U Amphetamin/Meth Scrn MDMA (Ecstasy) Screen U Benzodiazepines Scrn Ur Cocaine Metabolite U Marijuana (THC) Screen Ethyl Alcohol mg/dL 08/31/19 09:43 WBC RBC Hgb POC Hgb Hct POC Hct MCV MCH MCHC RDW Std Deviation RDW Coeff of Ketan Plt Count MPV Immature Gran % (Auto) Neut % (Auto) Lymph % (Auto) Graves % (Auto) Eos % (Auto) Baso % (Auto) Immature Gran # (Auto) Neut # (Auto) Lymph # (Auto) Graves # (Auto) Eos # (Auto) Baso # (Auto) PT INR APTT PTT Ratio POC Sodium Sodium Pending POC Potassium Potassium Pending POC Chloride Chloride Pending Carbon Dioxide Pending POC Total CO2 Anion Gap Pending POC Anion Gap POC BUN BUN Pending Creatinine Pending POC Creatinine Est Cr Clr Drug Dosing Pending Est GFR ( Amer) Pending Est GFR (Non-Af Amer) Pending BUN/Creatinine Ratio Pending Glucose Pending POC Glucose POC Glucose (other) Osmolality Calcium Pending POC Ioniz Calcium Fernando Magnesium Pending Total Bilirubin AST ALT Alkaline Phosphatase Ammonia POC Troponin I NT-Pro-B Natriuret Pep Total Protein Albumin Globulin Albumin/Globulin Ratio Folate TSH FSH Luteinizing Hormone Prolactin Urine Color Urine Appearance Urine pH Ur Specific [place] Urine Protein Urine Glucose (UA) Urine Ketones Urine Blood Urine Nitrite Urine Bilirubin Urine Urobilinogen Ur Leukocyte Esterase Urine Osmolality Ur Random Sodium Nasal Screen MRSA (PCR) Salicylates Urine Opiates Screen Ur Methadone, Qual Acetaminophen Urine Barbiturates Ur Phencyclidine (PCP) U Amphetamin/Meth Scrn MDMA (Ecstasy) Screen U Benzodiazepines Scrn Ur Cocaine Metabolite U Marijuana (THC) Screen Ethyl Alcohol mg/dL (1) AMS (altered mental status) Altered mental status type: unspecified Qualified Code(s): R41.82 - Altered mental status, unspecified
[2019-08-31 10:26] LABS: BUN Creatinine Ratio 7.4 (10-20); Calcium 8.9 mg/dl (8.5-10.1); Creatinine Clr Calc Pharmacy 98.5 ml/min; Est GFR (African American) 117.9; Est GFR (Non-African American) 101.7; Magnesium 2.1 mg/dl (1.8-2.4); Potassium 5.1 mmol/L (3.5-5.1)
[2019-08-31] MEDS ORDERED: THIAMINE HCL 500 MG in 0.9 % SODIUM CHLORIDE 100 ML IV SCH (14:00)
--- NOTE | 2019-08-31 14:19 | Hospitalist Progress Note ---
Date of Service August 31, 2019 Assessment & Plan (1) Hyponatremia: Severe hyponatremia possibly secondary to low solute intake versus recent nausea and vomiting versus continued alcohol use. Nephrology has been consulted and overnight the patient was given 250 cc of hypertonic saline with an increase in sodium from 116 to 129. She was in the ICU at this point and D5 was started with DDAVP. Nephrology recommended to stop those efforts this morning as sodium trended down to 122. Repeat as the day progressed revealed a continued decline in sodium now to 117. Patient continues to be nauseous and vomiting so Zofran was scheduled. She was notably nauseous at [facility] 3 days prior to arrival per reports from Charlene, nursing house staff at [facility]. Current etiology is unknown and patient is unable to communicate this to me. I discussed the case again with nephrology who recommends 3% hypertonic saline again now with a close trend BMP and stopping in 6 hours or if the sodium reaches 122. Goal sodium increase for today would be closer to 126 or so. Continue nephrology efforts. Also IV forms of medication such as Keppra. 420 mils per dose of hypotonic fluid. This was converted to p.o. Seizure activity is likely secondary to hyponatremia as her brain lesions are extra-axial and she was around 116 on admission. Despite this, continue Keppra per neurology at this time. (2) Seizure: Likely secondary to low sodium, however, continue Keppra at this time. Uncertain status of alcohol use. Continue to monitor for withdrawal. Continue seizure precautions. Ativan as needed seizure. Appreciate neurology recommenda tions. (3) Leukocytosis: Likely secondary to seizure. Improved today. No evidence of infection is present. (4) Brain lesion: Indeterminate osseous lesions in the head. Uncertain chronicity as outpatient records are not available for review. Recommend close outpatient follow-up to work this up. Malignancy needs to be excluded. (5) Alcoholism: No clear evidence of withdrawal at this time from a vital sign standpoint. Patient is very lethargic. Continue to monitor for alcohol withdrawal signs and symptoms. (6) Wernicke encephalopathy: Has had Warnicke's per her brother for 15 years. Baseline abilities are outlined in subjective above. Brother Navarro is her questioned documents examiner. (7) Hypothyroidism: Continue Synthroid per home regimen. (8) Hyperglycemia: No diagnosis of diabetes although she did have one random sugar over 200. I have stopped insulin coverage at this point. Blood sugar glucose can be checked as needed and on daily morning labs. The patient is not reliably eating and there is more of a concern with hypoglycemia at this point. (9) DVT prophylaxis: SCDs for now, would discuss safety of adding chemoprophylaxis in setting of brain lesions with neurology prior to adding but would add chemoprophylaxis no later than tomorrow. Full code Disposition-pending clinical improvement and PT/OT Robin for safety to return home. Francie Brower DO [facility] Hospitalist Subjective Patient is very lethargic, almost obtunded. She is able to answer questions but with a lot of effort. She is able to follow some instructions but exam is limited secondary to heavy sedation. Later in the day the patient was more alert as his sodium level improved. She did experience some nausea and vomiting and Zofran was scheduled as a result. Her sodium was noted to go back down after DDAVP and D5 were stopped in the morning. Despite this she continued to receive hypotonic fluids in the form of Keppra, and thiamine also contained normal saline at 200 cc an hour 3 times a day. When this was noted all medications were converted to p.o. I discussed the case with neurology, nephrology, and Dimitry's brother who is also her questioned documents examiner. Navarro is currently in [place] on business but plans to be home within the next couple of weeks and move gene and with him down in [place]. She was recently at [facility] and that was the plan when she was to be discharged this week. Notable nausea and vomiting for 3 days at [facility] prior to arrival. Uncertain cause of nausea and vomiting but would continue Zofran and look for sources as this will continue to drive sodium down. Also unsure of drinking status although Navarro says she is not drinking she was recently admitted for alcohol use. She has a history of Warnicke encephalopathy for the last 15 years. Per Navarro, she walks with a walker at baseline and is able to feed and bathe herself. The patient currently denies any pain. Review of Systems Review of Systems: All systems reviewed & are unremarkable except as noted in HPI & below Physical Exam Physical Exam: CONSTITUTIONAL: WNWD, vitals as above, generally lethargic EYES: lethargic, could not perform EOMI, PERRL, normal conjunctivae, no scleral icterus ENT: external ear and nose normal, pt refused to open her mouth for exam NECK: trachea midline, no lymphadenopathy, normal thyroid RESPIRATORY: clear to auscultation bilaterally, no crackles, rales or wheezes, normal respiratory effort CARDIOVASCULAR: regular rate and rhythm, S1 and 2 heard without murmurs, gallops or rubs, no JVD, no peripheral edema GASTROINTESTINAL: soft, nontender, nondistended MUSCULOSKELETAL: moves all extremities equally SKIN: warm and dry NEUROLOGIC: limited exam as patient is too lethargic to participate PSYCHIATRIC: able to open her eyes with alot of effort and prompting. Can follow some instructions and nod yes/no to questions but would not verbally answer. Results & Data Vital Signs (Past 12 Hours) Vital Signs Temp Pulse Resp BP Pulse Ox 08/31/19 12:00 36.4 C L 62 20 108/71 94 08/31/19 11:01 58 L 96 08/31/19 11:00 62 137/72 96 08/31/19 10:01 66 121/69 94 08/31/19 09:01 57 L 15 94 08/31/19 09:00 59 L 16 117/68 94 08/31/19 08:00 68 18 91 08/31/19 07:01 60 18 95 08/31/19 07:00 59 L 18 116/66 95 08/31/19 06:45 59 L 17 95 08/31/19 06:30 67 15 08/31/19 06:15 60 17 93 08/31/19 06:01 59 L 17 95 08/31/19 06:00 60 17 116/69 95 08/31/19 05:45 60 18 95 08/31/19 05:30 59 L 20 97 08/31/19 05:15 60 17 94 08/31/19 05:01 62 26 H 114/83 97 08/31/19 05:00 63 23 97 08/31/19 04:45 61 16 95 08/31/19 04:30 63 26 H 96 08/31/19 04:15 60 20 97 08/31/19 04:01 37.5 C 61 20 94 08/31/19 04:00 37.5 C 61 19 124/64 94 08/31/19 03:45 65 18 95 08/31/19 03:30 63 18 94 08/31/19 03:15 61 19 96 08/31/19 03:01 67 17 94 08/31/19 03:00 61 20 119/77 97 08/31/19 02:45 66 18 98 08/31/19 02:30 67 24 94 Laboratory Results Short CBC 08/30/19 08/31/19 Range/Units 18:59 06:30 WBC 19.52 H 15.07 H (4.8-10.8) K/uL Hgb 14.1 13.7 (12.0-16.0) g/dL Hct 39.5 38.3 (37-47) % Plt Count 262 236 (130-400) K/uL BMP 08/30/19 08/30/19 08/31/19 18:59 21:51 00:19 Sodium 116 L* 129 L D Cancelled Potassium 3.9 3.5 Chloride 83 L 96 L Carbon Dioxide 25 27 BUN 8 6 L Creatinine 0.62 0.62 Glucose 126 H 134 H Calcium 9.0 9.1 08/31/19 08/31/19 08/31/19 00:19 03:48 06:30 Sodium 127 L 125 L 122 L Potassium 3.3 L 3.7 Chloride 94 L 90 L Carbon Dioxide 27 25 BUN 5 L 4 L Creatinine 0.75 0.52 L Glucose 216 H 129 H Calcium 8.6 8.8 08/31/19 09:43 Sodium 123 L Potassium 5.1 D Chloride 90 L Carbon Dioxide 29 BUN 4 L Creatinine 0.59 L Glucose 93 Calcium 8.9 Liver Function 08/30/19 Range/Units 18:59 Total Bilirubin 0.8 (0.2-1) mg/dl AST 22 (15-37) U/L ALT 37 (12-78) U/L Alkaline Phosphatase 76 (45-117) U/L Albumin 3.2 L (3.4-5.0) gm/dl Urine 08/30/19 Range/Units 20:24 Urine Color Yellow Urine Appearance Clear (Clear) Urine pH 8.0 H (4.5-7.5) Ur Specific [place] 1.004 (1.000-1.030) Urine Protein Negative (Negative) Urine Glucose (UA) Negative (Negative) Medications Administered Current Inpatient Medications Acetaminophen (Tylenol) 650 mg PO Q4 PRN PRN Reason: Flu Symptoms Stop: 09/29/19 21:26 Albuterol (Duoneb) 3 ml NEB Q2H PRN PRN Reason: Wheezing Stop: 09/29/19 21:26 Dextrose (Dextrose 50%) 25 - 50 ml IV UD PRN; Protocol PRN Reason: Hypoglycemia Protocol Stop: 09/29/19 21:26 Gabapentin (Neurontin) 100 mg PO HS [facility] Stop: 09/29/19 21:26 Last Admin: 08/30/19 21:49 Dose: Not Given Documented by: Glucagon (Glucagen) 1 mg SQ UD PRN; Protocol PRN Reason: Hypoglycemia Protocol Stop: 09/29/19 21:26 Glucose (Dex4 Glucose) 4 - 8 tabs PO UD PRN; Protocol PRN Reason: Hypoglycemia Protocol Stop: 09/29/19 21:26 Glucose (Glucose 40%) 15 - 30 gm PO UD PRN; Protocol PRN Reason: Hypoglycemia Protocol Stop: 09/29/19 21:26 Heparin Sodium (Beef Lung) (Heparin Sod 10 Unit/Ml Flush) 5 ml FLUSH PRN PRN PRN Reason: Flush Stop: 09/30/19 00:55 Promethazine HCl 12.5 mg/ (Sodium Chloride) 50.5 mls @ 202 mls/hr IV Q6H PRN PRN Reason: Nausea And Vomiting Stop: 09/29/19 21:26 Folic Acid 1 mg/ Syringe 10 mls @ 5 mls/min IV QAM [facility] Stop: 09/30/19 08:59 Last Admin: 08/31/19 08:08 Dose: 5 mls/min Documented by: Thiamine HCl 500 mg/ Sodium (Chloride) 105 mls @ 210 mls/hr IV TID [facility] Stop: 09/01/19 21:29 Thiamine HCl 200 mg/ Sodium (Chloride) 52 mls @ 210 mls/hr IV QAM [facility] Stop: 09/06/19 09:15 Levetiracetam 500 mg/ Dextrose 105 mls @ 420 mls/hr IV Q12H [facility] Stop: 09/30/19 10:59 Last Infusion: 08/31/19 12:05 Dose: Infused Documented by: Insulin Aspart (Novolog Flexpen) 0 units SC ACHS [facility] Stop: 09/29/19 21:44 Last Admin: 08/31/19 11:57 Dose: Not Given Documented by: Levothyroxine Sodium (Synthroid) 75 mcg PO DAILYBB [facility] Stop: 09/30/19 06:29 Last Admin: 08/31/19 05:29 Dose: Not Given Documented by: Miscellaneous (Carbohydrates For Hypoglycemia) 15 - 30 gm PO UD PRN PRN Reason: Hypoglycemia Protocol Stop: 09/29/19 21:26 Miscellaneous (Icu Protocol For Hyperglycemia) 1 ea N/A PRN PRN; Protocol PRN Reason: Hyperglycemia Protocol Stop: 09/01/19 21:39 Multivitamins (Multivitamin Tab) 1 tab PO QAM [facility] Stop: 09/30/19 08:59 Last Admin: 08/31/19 09:28 Dose: Not Given Documented by: (1) Leukocytosis Leukocytosis type: unspecified Qualified Code(s): D72.829 - Elevated white blood cell count, unspecified
[2019-08-31 14:22] LABS: BUN Creatinine Ratio 8.5 (10-20); Calcium 8.6 mg/dl (8.5-10.1); Creatinine Clr Calc Pharmacy 111.7 ml/min; Est GFR (African American) 122.9; Est GFR (Non-African American) 106.1; Magnesium 1.8 mg/dl (1.8-2.4); Potassium 3.4 mmol/L (3.5-5.1)
[2019-08-31] MEDS: POTASSIUM CHLORIDE / WTR 10 MEQ/100 ML PLCT IV SCH ×3 (15:46→18:06)
--- NOTE | 2019-08-31 15:56 | Billing Data ---
Coding Level of Care Code 93953 Subseq Hosp Care Lvl 3
[2019-08-31 17:58] LABS: BUN Creatinine Ratio 10.5 (10-20); Calcium 8.5 mg/dl (8.5-10.1); Creatinine Clr Calc Pharmacy 126.3 ml/min; Est GFR (Non-African American) 110.4; Magnesium 1.7 mg/dl (1.8-2.4)
[2019-08-31 17:59] LABS: Potassium 4.4 mmol/L (3.5-5.1)
[2019-08-31] MEDS ORDERED: SODIUM CHLORIDE 3 % 500 ML IV SCH (18:30)
[2019-08-31] MEDS ORDERED: LORazepam 1 MG/2 ML VIAL IV PRN (18:48)
[2019-08-31] MEDS: ONDANSETRON INJ 2 MG/ML 2 ML VIAL IV SCH (19:22)
[2019-08-31] MEDS ORDERED: levETIRAcetam 500 MG TAB PO SCH (21:00)
[2019-08-31 21:02] LABS: BUN Creatinine Ratio 8.1 (10-20); Calcium 8.7 mg/dl (8.5-10.1); Creatinine Clr Calc Pharmacy 109.6 ml/min; Est GFR (African American) 122.2; Est GFR (Non-African American) 105.4; Potassium 4.1 mmol/L (3.5-5.1)
[2019-08-31] MEDS: GABAPENTIN 100 MG CAP PO SCH (21:36)
[2019-08-31] MEDS: levETIRAcetam 500 MG TAB PO SCH (21:38)
[2019-08-31] MEDS: THIAMINE HCL IV SCH (22:35)
[2019-08-31 23:46] LABS: BUN Creatinine Ratio 7.6 (10-20); Calcium 8.3 mg/dl (8.5-10.1); Creatinine Clr Calc Pharmacy 109.6 ml/min; Est GFR (African American) 122.2; Est GFR (Non-African American) 105.4; Potassium 3.7 mmol/L (3.5-5.1)
[2019-09-01] MEDS: ONDANSETRON INJ 2 MG/ML 2 ML VIAL IV SCH ×5 (01:24→23:49)
[2019-09-01 02:38] LABS: BUN Creatinine Ratio 7.9 (10-20); Calcium 8.4 mg/dl (8.5-10.1); Creatinine Clr Calc Pharmacy 109.6 ml/min; Est GFR (African American) 122.2; Est GFR (Non-African American) 105.4; Potassium 3.3 mmol/L (3.5-5.1)
[2019-09-01] MEDS: LEVOTHYROXINE SODIUM 75 MCG TABLET PO SCH ×2 (06:19→06:44)
[2019-09-01 06:30] LABS: Hematocrit (blood only) 40.6 % (37-47); Hemoglobin 14.6 g/dL (12.0-16.0); Mean Corpuscular Hemoglobin 32.3 pg (25-34); Mean Corpuscular Volume 89.8 fL (80-100); Mean Platelet Volume 9.8 fL (7.4-10.4); Platelet Count 270 K/uL (130-400); RDW Coefficient of Variation 13.2 % (11.5-14.5); RDW Standard Deviation 43.2 fL (36.4-46.3); Red Blood Count 4.52 M/uL (4.2-5.4); White Blood Count 7.85 K/uL (4.8-10.8)
[2019-09-01] MEDS: POTASSIUM CHLORIDE 20 MEQ TABCR PO STA ×2 (06:38→06:43)
[2019-09-01 06:59] LABS: BUN Creatinine Ratio 6.7 (10-20); Creatinine Clr Calc Pharmacy 107.6 ml/min; Est GFR (African American) 121.4; Est GFR (Non-African American) 104.8; Magnesium 2.1 mg/dl (1.8-2.4); Potassium 3.3 mmol/L (3.5-5.1)
[2019-09-01] MEDS: POTASSIUM CHLORIDE / WTR 10 MEQ/100 ML PLCT IV SCH ×2 (08:39→09:52)
[2019-09-01] MEDS: FOLIC ACID 1 MG TAB PO SCH (08:40)
[2019-09-01] MEDS: THIAMINE HCL IV SCH ×2 (08:40→13:02)
[2019-09-01] MEDS: MULTIVITAMIN TAB PO SCH (08:40)
[2019-09-01] MEDS: levETIRAcetam 500 MG TAB PO SCH ×2 (09:54→22:03)
--- NOTE | 2019-09-01 09:59 | Nephrology Progress Note ---
Date of Service September 01, 2019 Assessment & Plan (1) Hyponatremia: Patient with hyponatremia likely due to low solute intake. Urine osmolarity 115 which is on the lower side. Urine sodium was high at 43 but likely after receiving IV fluids. Sodium now at 128 which is appropriate rate o f correction. Target rate of correction is 6 points in 24 hours. -Monitor sodium at least twice daily. Avoid hypotonic fluids -Fluid restriction of 1.5 L daily. (2) AMS (altered mental status): Multifactorial including encephalopathy, postictal state and severe hyponatremia. Mental status is improving. Monitor mental status. And continue gradual correction of hyponatremia. (3) Seizure: Patient with seizure possibly due to severe hyponatremia and history of brain tumor. Continue work-up for other etiology of seizures. Patient is on Keppra per primary team. Recommend p.o. Keppra to avoid extra free water in the IV Keppra. Subjective Patient feels better this morning. She is not a great historian due to dementia but reports no pain or shortness of breath. She reportedly fell this morning while walking out of her room. She now has a one-to-one sitter. Sodium is better this morning at 128 Review of Systems Review of Systems: All systems reviewed & are unremarkable except as noted in HPI & below Physical Exam Physical Exam: General exam: Appears comfortable, no acute distress HEENT: Pupils are equal and reactive to light Neck: No JVD, neck is supple trachea is midline Respiratory system: Clear breath sounds bilaterally. Gastrointestinal: Abdomen is soft, non distended, non tender, bowel sounds are present CVS: Regular rate and rhythm. No murmurs, rubs or gallops Musculoskeletal: No joint or muscle tenderness Extremities: Non tender, no edema, peripheral pulses are present Neuro: Oriented, no tremors, no focal neurological deficits Skin: No rashes Results & Data Vital Signs (Past 12 Hours) Vital Signs Temp Pulse Resp BP Pulse Ox 09/01/19 08:00 36.9 C 69 20 115/68 94 09/01/19 03:38 36.8 C 55 L 17 95/56 L 94 08/31/19 23:22 36.8 C 69 19 137/77 98 Laboratory Results Laboratory Results - last 24 hr 08/31/19 08/31/19 08/31/19 09:43 11:45 13:20 WBC RBC Hgb Hct MCV MCH MCHC RDW Std Deviation RDW Coeff of Ketan Plt Count MPV Sodium 123 L 119 L* Potassium 5.1 D 3.4 L D Chloride 90 L 87 L Carbon Dioxide 29 23 Anion Gap 4.0 9.0 BUN 4 L 4 L Creatinine 0.59 L 0.52 L Est Cr Clr Drug Dosing 98.5 111.7 Est GFR ( Amer) 117.9 122.9 Est GFR (Non-Af Amer) 101.7 106.1 BUN/Creatinine Ratio 7.4 L 8.5 L Glucose 93 114 H POC Glucose 101 H Calcium 8.9 8.6 Magnesium 2.1 1.8 08/31/19 08/31/19 08/31/19 16:19 17:28 19:45 WBC RBC Hgb Hct MCV MCH MCHC RDW Std Deviation RDW Coeff of Ketan Plt Count MPV Sodium 117 L* 118 L* Potassium 4.4 D 4.1 Chloride 86 L 85 L Carbon Dioxide 22 24 Anion Gap 9.0 9.0 BUN 5 L 4 L Creatinine 0.46 L 0.53 L Est Cr Clr Drug Dosing 126.3 109.6 Est GFR ( Amer) 128.0 122.2 Est GFR (Non-Af Amer) 110.4 105.4 BUN/Creatinine Ratio 10.5 8.1 L Glucose 115 H 111 H POC Glucose 112 H Calcium 8.5 8.7 Magnesium 1.7 L 08/31/19 08/31/19 09/01/19 20:48 23:11 01:52 WBC RBC Hgb Hct MCV MCH MCHC RDW Std Deviation RDW Coeff of Ketan Plt Count MPV Sodium 120 L 124 L Potassium 3.7 3.3 L Chloride 86 L 90 L Carbon Dioxide 26 26 Anion Gap 7.0 8.0 BUN 4 L 4 L Creatinine 0.53 L 0.53 L Est Cr Clr Drug Dosing 109.6 109.6 Est GFR ( Amer) 122.2 122.2 Est GFR (Non-Af Amer) 105.4 105.4 BUN/Creatinine Ratio 7.6 L 7.9 L Glucose 110 H 109 H POC Glucose 128 H Calcium 8.3 L 8.4 L Magnesium 09/01/19 09/01/19 09/01/19 05:43 05:43 07:33 WBC 7.85 RBC 4.52 Hgb 14.6 Hct 40.6 MCV 89.8 MCH 32.3 MCHC 36.0 RDW Std Deviation 43.2 RDW Coeff of Ketan 13.2 Plt Count 270 MPV 9.8 Sodium 128 L Potassium 3.3 L Chloride 95 L Carbon Dioxide 27 Anion Gap 6.0 BUN 4 L Creatinine 0.54 L Est Cr Clr Drug Dosing 107.6 Est GFR ( Amer) 121.4 Est GFR (Non-Af Amer) 104.8 BUN/Creatinine Ratio 6.7 L Glucose 96 POC Glucose 112 H Calcium 9.0 Magnesium 2.1 (1) AMS (altered mental status) Altered mental status type: unspecified Qualified Code(s): R41.82 - Altered mental status, unspecified
[2019-09-01] MEDS ORDERED: POTASSIUM CHLORIDE 20 MEQ TABCR PO STA (10:49)
--- NOTE | 2019-09-01 13:04 | Neurology Progress Note ---
Date of Service September 01, 2019 Assessment & Plan (1) Seizure: Ms. Veliz is a 58 year old woman with chronic static encephalopathy presumed for chronic alcohol use / wernicke encephalopathy admitted for new onset seizure in the setting of hyponatremia. Probable symptomatic seizure secondary to hyponatremia. Mental status improved. Abrasion on right side of tongue. Sodium improving. Continue KEppra for now. Outpatient follow up with neurology in 4-6 weeks with routine EEG. Will consider stopping Keppra at follow up. Please contact me with any further questions. (2) Hyponatremia: (3) Wernicke encephalopathy: Subjective Patient was seen examined. Patient appears improved. Awake and talkative this afternoon. Reporting numbness in her feet. Physical Exam Physical Exam: EXAM: Constitutional: appears chronically ill Head and Face: normocephalic and atraumatic Eyes: normal lids, normal conjunctiva Neck: supple Respiratory: normal effort Cardiovascular:normal pulses Abdomen: non distended Skin: no rashes, lesions, or ulcers noted Psychiatric: normal mood and normal affect NEUROLOGIC EXAMINATION: Appearance: no acute distress Orientation: awake, alert and oriented to person Mental Status: alert Memory: poor Attention: ok Knowledge: poor Language: following simple commandsSpeech: moderate to severe dysarthria Cranial Nerves: CN 2 - no visual defect on confrontation and pupils round, equal, reactive to light CN 3, 4, 6 - extra-ocular movements intact and no nystagmus CN 5 - facial sensation intact CN 7 - no facial asymmetry CN 8 - intact hearing CN 9, 10 - palate symmetric CN 11 - good shoulder shrug CN 12 - tongue midline Gait: deferred Coordination: ataxia with finger to nose testoing, no tremor Sensory:decreased sensation in feet Muscle Tone: normal Muscle exam: No focal weakness Reflexes: No ankle clonus Results & Data Vital Signs (Past 12 Hours) Vital Signs Temp Pulse Resp BP Pulse Ox 09/01/19 12:01 36.5 C 68 18 109/69 93 09/01/19 08:00 36.9 C 69 20 115/68 94 09/01/19 03:38 36.8 C 55 L 17 95/56 L 94
--- NOTE | 2019-09-01 14:15 | Hospitalist Progress Note ---
Date of Service September 01, 2019 Assessment & Plan (1) Hyponatremia: Severe hyponatremia possibly secondary to low solute intake versus recent nausea and vomiting versus continued alcohol use. Presented with new onset seizure likely secondary to hyponatremia Nephrology has been consulted Initial management of hyponatremia was very difficult to control She received normal saline, hypertonic saline and D5 with DDAVP to correct sodium level She was in the ICU Patient continues to be nauseous and vomiting so Zofran was scheduled. As of today sodium level is 128 We will continue fluid restrictions to 1.5 L a day with 2 g sodium diet (2) Seizure: Likely secondary to low sodium doubt any use of alcohol being in the skilled care facility Will monitor for withdrawal symptoms and she has been on alcohol withdrawal protocol Appreciate neurology recommendations. Continue Keppra (3) Leukocytosis: Likely secondary to seizure. Improved today. No evidence of infection is present. (4) Brain lesion: Indeterminate osseous lesions in the head. Uncertain chronicity as outpatient records are not available for review. Recommend close outpatient follow-up to work this up. Malignancy needs to be excluded. CT scan as of 1211 this bumped did show osseous lesions in the left frontal bone which remains unchanged as of latest CT scan of the head Chondroma, hemangioma all the possibilities but malignancy was not excluded (5) Alcoholism: No clear evidence of withdrawal at this time from a vital sign standpoint. Patient is very lethargic. Continue to monitor for alcohol withdrawal signs and symptoms. (6) Wernicke encephalopathy: Has had Warnicke's per her brother for 15 years. Baseline abilities are outlined in subjective above. Brother Navarro is her design release engineer. Received very high dose of thiamine for the last day or 2 We will decrease the dose of thiamine 200 mg 3 times daily for today and will change to 200 mg daily from tomorrow (7) Hypothyroidism: Continue Synthroid per home regimen. (8) Hyperglycemia: No diagnosis of diabetes although she did have one random sugar over 200. I have stopped insulin coverage at this point. Blood sugar glucose can be checked as needed and on daily morning labs. The patient is not reliably eating and there is more of a concern with hypoglycemia at this point. (9) DVT prophylaxis: SCDs for now, would discuss safety of adding chemoprophylaxis in setting of brain lesions with neurology prior to adding but would add chemoprophylaxis no later than tomorrow. Full code Disposition-pending clinical improvement and PT/OT Robin for safety to return home. Francie Brower DO [facility] Hospitalist (10) Fall: Status post fall this morning No significant injuries identified Advised one-to-one sitter for now Will get PT and OT evaluation Subjective 09/01 The patient was seen and examined in telemetry unit She remains confused and has had a fall this morning Minor injuries involving the left knee and left buttock, no loss of consciousness Complains some pain in the left upper extremity but denies any other symptoms Review of Systems Review of Systems: All systems reviewed and are unremarkable except as noted below Constitutional: + fatigue and + weakness Neurologic: + gait abnormality, + unsteadiness, + falls and + generalized weakness Physical Exam Physical Exam: Sitting on bed without any acute distress Constitutional: + ill appearing and + thin; no acute distress Eyes: PERRL, conjunctivae normal, anicteric sclerae ENMT: external ear and nose normal, oropharynx normal Neck: trachea midline, no thyromegaly Respiratory: normal respiratory effort; no respiratory distress Auscultation: lungs clear to auscultation bilaterally Cardiovascular: Rate/Rhythm: regular rate and regular rhythm Heart Sounds: normal S1 and normal S2; no murmur Vessels: no JVD Extremities: no edema Gastrointestinal (Abdomen): Inspection/Auscultation: abdomen normal to inspection and normal bowel sounds; abdomen not distended Percussion/Palpation: abdomen soft; abdomen nontender Musculoskeletal: No arthritis involving any of the joints Skin: no rashes, warm and dry Neurologic: + obtunded Speech / Cognition: + abnormal cognition Alert and awake. Disoriented with confusion. Abnormal speech Psychiatric: Orientation: alert; + uncooperative Affect: + flat affect Insight: + limited insight Judgement: + limited judgement Lymphatic: no cervical or axillary lymphadenopathy Results & Data Vital Signs (Past 12 Hours) Vital Signs Temp Pulse Resp BP Pulse Ox 09/01/19 12:01 36.5 C 68 18 109/69 93 09/01/19 08:00 36.9 C 69 20 115/68 94 09/01/19 03:38 36.8 C 55 L 17 95/56 L 94 Laboratory Results Short CBC 09/01/19 Range/Units 05:43 WBC 7.85 (4.8-10.8) K/uL Hgb 14.6 (12.0-16.0) g/dL Hct 40.6 (37-47) % Plt Count 270 (130-400) K/uL BMP 08/31/19 08/31/19 08/31/19 13:20 17:28 19:45 Sodium 119 L* 117 L* 118 L* Potassium 3.4 L D 4.4 D 4.1 Chloride 87 L 86 L 85 L Carbon Dioxide 23 22 24 BUN 4 L 5 L 4 L Creatinine 0.52 L 0.46 L 0.53 L Glucose 114 H 115 H 111 H Calcium 8.6 8.5 8.7 08/31/19 09/01/19 09/01/19 23:11 01:52 05:43 Sodium 120 L 124 L 128 L Potassium 3.7 3.3 L 3.3 L Chloride 86 L 90 L 95 L Carbon Dioxide 26 26 27 BUN 4 L 4 L 4 L Creatinine 0.53 L 0.53 L 0.54 L Glucose 110 H 109 H 96 Calcium 8.3 L 8.4 L 9.0 Medications Administered Current Inpatient Medications Acetaminophen (Tylenol) 650 mg PO Q4 PRN PRN Reason: Flu Symptoms Stop: 09/29/19 21:26 Albuterol (Duoneb) 3 ml NEB Q2H PRN PRN Reason: Wheezing Stop: 09/29/19 21:26 Folic Acid (Folvite) 1 mg PO QAM [facility] Stop: 10/01/19 08:59 Last Admin: 09/01/19 08:40 Dose: 1 mg Documented by: Gabapentin (Neurontin) 100 mg PO HS [facility] Stop: 09/29/19 21:26 Last Admin: 08/31/19 21:36 Dose: 100 mg Documented by: Heparin Sodium (Beef Lung) (Heparin Sod 10 Unit/Ml Flush) 5 ml FLUSH PRN PRN PRN Reason: Flush Stop: 09/30/19 00:55 Lorazepam (Ativan) 1 mg in 2 mls @ 0.5 mls/min IV UD PRN PRN Reason: seizure Stop: 09/30/19 18:47 Last Admin: 09/01/19 09:52 Dose: 0.5 mls/min Documented by: Thiamine HCl 100 mg/ Syringe 10 mls @ 2 mls/min IV TID [facility] Stop: 10/01/19 20:59 Levetiracetam (Keppra) 500 mg PO Q12H [facility] Stop: 09/30/19 22:59 Last Admin: 09/01/19 09:54 Dose: 500 mg Documented by: Levothyroxine Sodium (Synthroid) 75 mcg PO DAILYBB [facility] Stop: 09/30/19 06:29 Last Admin: 09/01/19 06:44 Dose: Not Given Documented by: Multivitamins (Multivitamin Tab) 1 tab PO QAM [facility] Stop: 09/30/19 08:59 Last Admin: 09/01/19 08:40 Dose: 1 tab Documented by: Ondansetron HCl (Zofran) 4 mg IV Q6H [facility] Stop: 09/30/19 18:29 Last Admin: 09/01/19 13:02 Dose: 4 mg Documented by: (1) Leukocytosis Leukocytosis type: unspecified Qualified Code(s): D72.829 - Elevated white blood cell count, unspecified
[2019-09-01] MEDS: GABAPENTIN 100 MG CAP PO SCH (20:32)
[2019-09-01] MEDS: THIAMINE HCL 100 MG in SYRINGE 9 ML IV SCH (20:33)
[2019-09-02] MEDS: ONDANSETRON INJ 2 MG/ML 2 ML VIAL IV SCH ×3 (05:31→18:34)
[2019-09-02] MEDS: LEVOTHYROXINE SODIUM 75 MCG TABLET PO SCH (05:31)
[2019-09-02 08:11] LABS: Basophils # (auto) 0.01 K/uL (0-0.2); Basophils % (auto) 0.1 %; Eosinophils # (auto) 0.11 K/uL (0-0.5); Eosinophils % (auto) 1.3 %; Hematocrit (blood only) 42.7 % (37-47); Hemoglobin 15.1 g/dL (12.0-16.0); Immature Granulocytes # (auto) 0.02 K/uL (0.00-0.02); Immature Granulocytes % (auto) 0.2 %; Lymphocytes # (auto) 1.03 K/uL (1.2-3.4); Lymphocytes % (auto) 11.9 %; Mean Corpuscular Hemoglobin 31.9 pg (25-34); Mean Corpuscular Hgb Conc 35.4 g/dL (32-36); Mean Corpuscular Volume 90.1 fL (80-100); Mean Platelet Volume 9.9 fL (7.4-10.4); Monocytes # (auto) 1.03 K/uL (0.11-0.59); Monocytes % (auto) 11.9 %; Neutrophils # (auto) 6.45 K/uL (1.4-6.5); Neutrophils % (auto) 74.6 %; Platelet Count 287 K/uL (130-400); RDW Coefficient of Variation 13.5 % (11.5-14.5); RDW Standard Deviation 44.6 fL (36.4-46.3); Red Blood Count 4.74 M/uL (4.2-5.4); White Blood Count 8.65 K/uL (4.8-10.8)
[2019-09-02 08:53] LABS: BUN Creatinine Ratio 5.9 (10-20); Calcium 9.7 mg/dl (8.5-10.1); Creatinine Clr Calc Pharmacy 100.2 ml/min; Est GFR (African American) 118.6; Est GFR (Non-African American) 102.3; Magnesium 2.2 mg/dl (1.8-2.4); Potassium 3.6 mmol/L (3.5-5.1)
[2019-09-02] MEDS ORDERED: THIAMINE HCL 200 MG in SODIUM CHLORIDE 0.9% 50 ML IV SCH (09:00)
[2019-09-02] MEDS: FOLIC ACID 1 MG TAB PO SCH (09:23)
[2019-09-02] MEDS: MULTIVITAMIN TAB PO SCH (09:23)
[2019-09-02] MEDS: THIAMINE HCL 100 MG in SYRINGE 9 ML IV SCH ×3 (09:23→20:54)
--- NOTE | 2019-09-02 10:24 | Nephrology Progress Note ---
Date of Service September 02, 2019 Assessment & Plan (1) Hyponatremia: Patient with hyponatremia likely due to low solute intake. Urine osmolarity 115 which is on the lower side. Urine sodium was high at 43 but likely after receiving IV fluids. Sodium now at 141 which is normal -Monitor sodium daily. -From renal standpoint patient can be discharged. -No need for fluid restriction and no need for renal follow-up unless repeat labs show hyponatremia again. (2) AMS (altered mental status): Multifactorial including encephalopathy, postictal state and severe hyponatremia. Mental status is improving. Monitor mental status. (3) Seizure: Patient with seizure possibly due to severe hyponatremia and history of brain tumor. Continue work-up for other etiology of seizures. Patient is on Keppra per primary team. Recommend p.o. Keppra to avoid extra free water in the IV Keppra. Subjective She feels better today. No shortness of breath. No vomiting or diarrhea. Sodium is much improved. Review of Systems Review of Systems: All systems reviewed & are unremarkable except as noted in HPI & below Physical Exam Physical Exam: General exam: Appears comfortable, no acute distress HEENT: Pupils are equal and reactive to light Neck: No JVD, neck is supple trachea is midline Respiratory system: Clear breath sounds bilaterally. Gastrointestinal: Abdomen is soft, non distended, non tender, bowel sounds are present CVS: Regular rate and rhythm. No murmurs, rubs or gallops Musculoskeletal: No joint or muscle tenderness Extremities: Non tender, no edema, peripheral pulses are present Neuro: Oriented, no tremors, no focal neurological deficits Skin: No rashes Results & Data Vital Signs (Past 12 Hours) Vital Signs Temp Pulse Pulse Resp BP Pulse Ox 09/02/19 03:30 36.3 C L 55 L 18 103/57 L 95 09/02/19 00:00 59 L 09/01/19 23:26 36.5 C 50 L 17 121/73 94 Laboratory Results Laboratory Results - last 24 hr 09/01/19 09/01/19 09/01/19: 16:24 20:02 WBC RBC Hgb Hct MCV MCH MCHC RDW Std Deviation RDW Coeff of Ketan Plt Count MPV Immature Gran % (Auto) Neut % (Auto) Lymph % (Auto) Riley % (Auto) Eos % (Auto) Baso % (Auto) Immature Gran # (Auto) Neut # (Auto) Lymph # (Auto) Riley # (Auto) Eos # (Auto) Baso # (Auto) Sodium Potassium Chloride Carbon Dioxide Anion Gap BUN Creatinine Est Cr Clr Drug Dosing Est GFR ( Amer) Est GFR (Non-Af Amer) BUN/Creatinine Ratio Glucose POC Glucose 99 87 97 Calcium Magnesium 09/02/19 09/02/19 09/02/19 07:26 07:59 07:59 WBC 8.65 RBC 4.74 Hgb 15.1 Hct 42.7 MCV 90.1 MCH 31.9 MCHC 35.4 RDW Std Deviation 44.6 RDW Coeff of Ketan 13.5 Plt Count 287 MPV 9.9 Immature Gran % (Auto) 0.2 Neut % (Auto) 74.6 Lymph % (Auto) 11.9 Riley % (Auto) 11.9 Eos % (Auto) 1.3 Baso % (Auto) 0.1 Immature Gran # (Auto) 0.02 Neut # (Auto) 6.45 Lymph # (Auto) 1.03 L Riley # (Auto) 1.03 H Eos # (Auto) 0.11 Baso # (Auto) 0.01 Sodium 141 D Potassium 3.6 Chloride 108 H Carbon Dioxide 26 Anion Gap 7.0 BUN 3 L Creatinine 0.58 L Est Cr Clr Drug Dosing 100.2 Est GFR ( Amer) 118.6 Est GFR (Non-Af Amer) 102.3 BUN/Creatinine Ratio 5.9 L Glucose 95 POC Glucose 75 Calcium 9.7 Magnesium 2.2 (1) AMS (altered mental status) Altered mental status type: unspecified Qualified Code(s): R41.82 - Altered mental status, unspecified
[2019-09-02] MEDS: levETIRAcetam 500 MG TAB PO SCH ×2 (11:58→22:19)
--- NOTE | 2019-09-02 16:05 | Hospitalist Progress Note ---
Date of Service September 02, 2019 Assessment & Plan (1) Hyponatremia: Severe hyponatremia possibly secondary to low solute intake versus recent nausea and vomiting versus continued alcohol use. Presented with new onset seizure likely secondary to hyponatremia Nephrology has been consulted Initial management of hyponatremia was very difficult to control She received normal saline, hypertonic saline and D5 with DDAVP to correct sodium level She was in the ICU Patient continues to be nauseous and vomiting so Zofran was scheduled. As of today sodium level is 128 We will continue fluid restrictions to 1.5 L a day with 2 g sodium diet Sodium has gone up to 141 today (2) Seizure: Likely secondary to low sodium doubt any use of alcohol being in the skilled care facility Will monitor for withdrawal symptoms and she has been on alcohol withdrawal protocol Appreciate neurology recommendations. Continue Keppra No more seizures in the hospital (3) Leukocytosis: Likely secondary to seizure. Improved today. No evidence of infection is present. Normalized (4) Brain lesion: Indeterminate osseous lesions in the head. Uncertain chronicity as outpatient records are not available for review. Recommend close outpatient follow-up to work this up. Malignancy needs to be excluded. CT scan as of 1211 this bumped did show osseous lesions in the left frontal bone which remains unchanged as of latest CT scan of the head Chondroma, hemangioma all the possibilities but malignancy was not excluded (5) Alcoholism: No clear evidence of withdrawal at this time from a vital sign standpoint. Patient is very lethargic. Continue to monitor for alcohol withdrawal signs and symptoms. No signs and/or symptoms of withdrawal (6) Wernicke encephalopathy: Has had Warnicke's per her brother for 15 years. Baseline abilities are outlined in subjective above. Brother Navarro is her negative stripper. Received very high dose of thiamine for the last day or 2 We will decrease the dose of thiamine 200 mg 3 times daily for today and will change to 200 mg daily from tomorrow Will give thiamine 100 mg daily We will get PT and OT evaluation before discharge (7) Hypothyroidism: Continue Synthroid per home regimen. (8) Hyperglycemia: No diagnosis of diabetes although she did have one random sugar over 200. I have stopped insulin coverage at this point. Blood sugar glucose can be checked as needed and on daily morning labs. The patient is not reliably eating and there is more of a concern with hypoglycemia at this point. (9) DVT prophylaxis: SCDs for now, would discuss safety of adding chemoprophylaxis in setting of brain lesions with neurology prior to adding but would add chemoprophylaxis no later than tomorrow. Full code Disposition-pending clinical improvement and PT/OT Robin for safety to return home. (10) Fall: Status post fall this morning No significant injuries identified Advised one-to-one sitter for now Will get PT and OT evaluation Discussed with the brother in detail Likely discharge on Saturday Subjective 09/01 The patient was seen and examined in telemetry unit She remains confused and has had a fall this morning Minor injuries involving the left knee and left buttock, no loss of consciousness Complains some pain in the left upper extremity but denies any other symptoms 09/02 The patient was seen and examined in telemetry unit She denies any symptoms as of today She will get PT and OT evaluation before discharge's likely on Saturday Review of Systems Review of Systems: All systems reviewed and are unremarkable except as noted below Physical Exam Physical Exam: Lying in bed comfortably Constitutional: + ill appearing and + thin; no acute distress Eyes: PERRL, conjunctivae normal, anicteric sclerae ENMT: external ear and nose normal, oropharynx normal Neck: trachea midline, no thyromegaly Respiratory: normal respiratory effort; no respiratory distress Auscul tation: lungs clear to auscultation bilaterally Cardiovascular: Rate/Rhythm: regular rate and regular rhythm Heart Sounds: normal S1 and normal S2; no murmur Vessels: no JVD Extremities: no edema Gastrointestinal (Abdomen): Inspection/Auscultation: abdomen normal to inspection and normal bowel sounds; abdomen not distended Percussion/Palpation: abdomen soft; abdomen nontender Skin: no rashes, warm and dry Neurologic: + obtunded Speech / Cognition: + abnormal cognition Psychiatric: Orientation: alert; + uncooperative Affect: + flat affect Insight: + limited insight Judgement: + limited judgement Lymphatic: no cervical or axillary lymphadenopathy Results & Data Vital Signs (Past 12 Hours) Vital Signs Temp Pulse Resp BP Pulse Ox 09/02/19 15:28 36.7 C 51 L 18 109/69 94 09/02/19 11:31 36.2 C L 59 L 20 109/70 95 Laboratory Results Short CBC 09/02/19 Range/Units 07:59 WBC 8.65 (4.8-10.8) K/uL Hgb 15.1 (12.0-16.0) g/dL Hct 42.7 (37-47) % Plt Count 287 (130-400) K/uL [facility] 09/02/19 07:59 Sodium 141 D Potassium 3.6 Chloride 108 H Carbon Dioxide 26 BUN 3 L Creatinine 0.58 L Glucose 95 Calcium 9.7 Medications Administered Current Inpatient Medications Acetaminophen (Tylenol) 650 mg PO Q4 PRN PRN Reason: Flu Symptoms Stop: 09/29/19 21:26 Albuterol (Duoneb) 3 ml NEB Q2H PRN PRN Reason: Wheezing Stop: 09/29/19 21:26 Folic Acid (Folvite) 1 mg PO QAM FLORENCIA Stop: 10/01/19 08:59 Last Admin: 09/02/19 09:23 Dose: 1 mg Documented by: Gabapentin (Neurontin) 100 mg PO HS FLORENCIA Stop: 09/29/19 21:26 Last Admin: 09/01/19 20:32 Dose: 100 mg Documented by: Heparin Sodium (Beef Lung) (Heparin Sod 10 Unit/Ml Flush) 5 ml FLUSH PRN PRN PRN Reason: Flush Stop: 09/30/19 00:55 Lorazepam (Ativan) 1 mg in 2 mls @ 0.5 mls/min IV UD PRN PRN Reason: seizure Stop: 09/30/19 18:47 Last Admin: 09/01/19 09:52 Dose: 0.5 mls/min Documented by: Thiamine HCl 100 mg/ Syringe 10 mls @ 2 mls/min IV TID FLORENCIA Stop: 10/01/19 20:59 Last Admin: 09/02/19 13:58 Dose: 2 mls/min Documented by: Levetiracetam (Keppra) 500 mg PO Q12H FLORENCIA Stop: 09/30/19 22:59 Last Admin: 09/02/19 11:58 Dose: 500 mg Documented by: Levothyroxine Sodium (Synthroid) 75 mcg PO DAILYBB FLORENCIA Stop: 09/30/19 06:29 Last Admin: 09/02/19 05:31 Dose: 75 mcg Documented by: Multivitamins (Multivitamin Tab) 1 tab PO QAM FLORENCIA Stop: 09/30/19 08:59 Last Admin: 09/02/19 09:23 Dose: 1 tab Documented by: Ondansetron HCl (Zofran) 4 mg IV Q6H FLORENCIA Stop: 09/30/19 18:29 Last Admin: 09/02/19 11:58 Dose: 4 mg Documented by: (1) Leukocytosis Leukocytosis type: unspecified Qualified Code(s): D72.829 - Elevated white blood cell count, unspecified
[2019-09-02] MEDS ORDERED: ONDANSETRON INJ 2 MG/ML 2 ML VIAL IV PRN (18:33)
[2019-09-02] MEDS: GABAPENTIN 100 MG CAP PO SCH (20:54)
[2019-09-03] MEDS: LEVOTHYROXINE SODIUM 75 MCG TABLET PO SCH (05:33)
[2019-09-03] MEDS: FOLIC ACID 1 MG TAB PO SCH (08:58)
[2019-09-03] MEDS: MULTIVITAMIN TAB PO SCH (08:58)
[2019-09-03] MEDS: THIAMINE HCL 100 MG in SYRINGE 9 ML IV SCH ×2 (08:59→13:30)
[2019-09-03] MEDS: levETIRAcetam 500 MG TAB PO SCH ×2 (11:44→22:09)
--- NOTE | 2019-09-03 13:56 | Hospitalist Progress Note ---
Date of Service September 03, 2019 Assessment & Plan (1) Hyponatremia: Severe hyponatremia possibly secondary to low solute intake versus recent nausea and vomiting versus continued alcohol use. Presented with new onset seizure likely secondary to hyponatremia Nephrology has been consulted Initial management of hyponatremia was very difficult to control She received normal saline, hypertonic saline and D5 with DDAVP to correct sodium level She was in the ICU Patient continues to be nauseous and vomiting so Zofran was scheduled. As of today sodium level is 128 We will continue fluid restrictions to 1.5 L a day with 2 g sodium diet Sodium has gone up to 141 on 09/02 (2) Seizure: Likely secondary to low sodium doubt any use of alcohol being in the skilled care facility Will monitor for withdrawal symptoms and she has been on alcohol withdrawal protocol Appreciate neurology recommendations. Continue Keppra No more seizures in the hospital (3) Leukocytosis: Likely secondary to seizure. Improved today. No evidence of infection is present. Normalized (4) Brain lesion: Indeterminate osseous lesions in the head. Uncertain chronicity as outpatient records are not available for review. Recommend close outpatient follow-up to work this up. Malignancy needs to be excluded. CT scan as of 1211 this bumped did show osseous lesions in the left frontal bone which remains unchanged as of latest CT scan of the head Chondroma, hemangioma all the possibilities but malignancy was not excluded (5) Alcoholism: No clear evidence of withdrawal at this time from a vital sign standpoint. Patient is very lethargic. Continue to monitor for alcohol withdrawal signs and symptoms. No signs and/or symptoms of withdrawal (6) Wernicke encephalopathy: Has had Warnicke's per her brother for 15 years. Baseline abilities are outlined in subjective above. Brother Navarro is her drying supervisor. Received very high dose of thiamine for the last day or 2 We will decrease the dose of thiamine 200 mg 3 times daily for today and will change to 200 mg daily from tomorrow Will give thiamine 100 mg daily We will get PT and OT evaluation before discharge No more acute confusion (7) Hypothyroidism: Continue Synthroid per home regimen. (8) Hyperglycemia: No diagnosis of diabetes although she did have one random sugar over 200. I have stopped insulin coverage at this point. Blood sugar glucose can be checked as needed and on daily morning labs. The patient is not reliably eating and there is more of a concern with hypoglycemia at this point. (9) DVT prophylaxis: SCDs for now, would discuss safety of adding chemoprophylaxis in setting of brain lesions with neurology prior to adding but would add chemoprophylaxis no later than tomorrow. Full code Disposition-pending clinical improvement and PT/OT Robin for safety to return home. (10) Fall: Status post fall this morning on 09/02 No significant injuries identified Advised one-to-one sitter for now Will get PT and OT evaluation Discussed with the brother in detail Likely discharge on Saturday Clinically a lot better today and will transfer the patient to medical floor Subjective 09/01 The patient was seen and examined in telemetry unit She remains confused and has had a fall this morning Minor injuries involving the left knee and left buttock, no loss of consciousness Complains some pain in the left upper extremity but denies any other symptoms 09/02 The patient was seen and examined in telemetry unit She denies any symptoms as of today She will get PT and OT evaluation before discharge's likely on Monday 09/03 The patient was seen and examined in telemetry unit She has been feeling a lot better and does not have any more acute confusion She denies any significant symptoms 1 TO 1 observation is taken away Review of Systems Review of Systems: All systems reviewed and are unremarkable except as noted below Physical Exam Physical Exam: Anxious but no acute distress Constitutional: + ill appearing and + thin; no acute distress Eyes: PERRL, conjunctivae normal, anicteric sclerae ENMT: external ear and nose normal, oropharynx normal Neck: trachea midline, no thyromegaly Respiratory: normal respiratory effort; no respiratory distress Auscultation: lungs clear to auscultation bilaterally Cardiovascular: Rate/Rhythm: regular rate and regular rhythm Heart Sounds: normal S1 and normal S2; no murmur Vessels: no JVD Extremities: no edema Gastrointestinal (Abdomen): Inspection/Auscultation: abdomen normal to inspection and normal bowel sounds; abdomen not distended Percussion/Palpation: abdomen soft; abdomen nontender Skin: no rashes, warm and dry Neurologic: Speech / Cognition: + abnormal cognition Psychiatric: Orientation: alert; + uncooperative Affect: + flat affect Insight: + limited insight Judgement: + limited judgement Lymphatic: no cervical or axillary lymphadenopathy Results & Data Vital Signs (Past 12 Hours) Vital Signs Temp Pulse Pulse Resp BP Pulse Ox 09/03/19 10:58 36.3 C L 51 L 19 122/72 98 09/03/19 08:00 43 L 09/03/19 07:11 36.9 C 45 L 19 91/50 L 93 09/03/19 03:16 36.8 C 50 L 18 103/58 L 93 Medications Administered Current Inpatient Medications Acetaminophen (Tylenol) 650 mg PO Q4 PRN PRN Reason: Flu Symptoms Stop: 09/29/19 21:26 Albuterol (Duoneb) 3 ml NEB Q2H PRN PRN Reason: Wheezing Stop: 09/29/19 21:26 Folic Acid (Folvite) 1 mg PO QAM FLORENCIA Stop: 10/01/19 08:59 Last Admin: 09/03/19 08:58 Dose: 1 mg Documented by: Gabapentin (Neurontin) 100 mg PO HS FLORENCIA Stop: 09/29/19 21:26 Last Admin: 09/02/19 20:54 Dose: 100 mg Documented by: Heparin Sodium (Beef Lung) (Heparin Sod 10 Unit/Ml Flush) 5 ml FLUSH PRN PRN PRN Reason: Flush Stop: 09/30/19 00:55 Lorazepam (Ativan) 1 mg in 2 mls @ 0.5 mls/min IV UD PRN PRN Reason: seizure Stop: 09/30/19 18:47 Last Admin: 09/01/19 09:52 Dose: 0.5 mls/min Documented by: Thiamine HCl 100 mg/ Syringe 10 mls @ 2 mls/min IV TID FLORENCIA Stop: 10/01/19 20:59 Last Admin: 09/03/19 13:30 Dose: 2 mls/min Documented by: Levetiracetam (Keppra) 500 mg PO Q12H FLORENCIA Stop: 09/30/19 22:59 Last Admin: 09/03/19 11:44 Dose: 500 mg Documented by: Levothyroxine Sodium (Synthroid) 75 mcg PO DAILYBB FLORENCIA Stop: 09/30/19 06:29 Last Admin: 09/03/19 05:33 Dose: 75 mcg Documented by: Multivitamins (Multivitamin Tab) 1 tab PO QAM FLORENCIA Stop: 09/30/19 08:59 Last Admin: 09/03/19 08:58 Dose: 1 tab Documented by: Ondansetron HCl (Zofran) 4 mg IV Q6H PRN PRN Reason: Nausea Stop: 09/30/19 18:29 (1) Leukocytosis Leukocytosis type: unspecified Qualified Code(s): D72.829 - Elevated white blood cell count, unspecified
[2019-09-03] MEDS: NYSTATIN SUSP 500,000 U/5 ML UDC PO SCH ×2 (16:31→20:02)
[2019-09-03 18:35] LABS: Appearance Urine Cloudy (Clear); Bacteria Urine Automated 3+ (Negative); Bilirubin Urine Negative (Negative); Blood Urine 3+ (Negative); Cast Urine Automated 0 /lpf (0-5); Color Urine Yellow; Epithelial Cell Urine Auto >30 /lpf (0-5); Glucose Urine UA Negative (Negative); Ketones Urine Negative (Negative); Leukocyte Esterase Urine 3+ (Negative); Nitrite Urine Negative (Negative); Protein Urine Negative (Negative); RBC Urine Automated 0-4 /hpf (0-4); Specific Gravity Urine 1.009 (1.000-1.030); Urobilinogen Urine Negative (Negative); WBC Urine Automated >30 /hpf (0-5); pH Urine 5.5 (4.5-7.5)
[2019-09-03] MEDS: cefTRIAXone SODIUM 1,000 MG in DEXTROSE 5% 50 ML IV SCH (19:33)
[2019-09-03] MEDS: GABAPENTIN 100 MG CAP PO SCH (20:02)
[2019-09-04] MEDS: LEVOTHYROXINE SODIUM 75 MCG TABLET PO SCH (06:02)
[2019-09-04] MEDS: MULTIVITAMIN TAB PO SCH (08:43)
[2019-09-04] MEDS: THIAMINE HCL 100 MG in SYRINGE 9 ML IV SCH (08:43)
[2019-09-04] MEDS: NYSTATIN SUSP 500,000 U/5 ML UDC PO SCH ×4 (08:43→21:33)
[2019-09-04] MEDS: FOLIC ACID 1 MG TAB PO SCH (08:43)
[2019-09-04 09:10] LABS: BUN Creatinine Ratio 8.2 (10-20); Calcium 9.4 mg/dl (8.5-10.1); Creatinine Clr Calc Pharmacy 100.2 ml/min; Est GFR (African American) 118.6; Est GFR (Non-African American) 102.3; Potassium 3.8 mmol/L (3.5-5.1)
--- NOTE | 2019-09-04 10:32 | Nephrology Progress Note ---
Date of Service September 04, 2019 Assessment & Plan (1) Hyponatremia: Patient with hyponatremia likely due to low solute intake. Urine osmolarity 115 which is on the lower side. Urine sodium was high at 43 but likely after receiving IV fluids. Sodium now at 139 which is normal -Monitor sodium daily. -From renal standpoint patient can be discharged. -No need for fluid restriction and no need for renal follow-up unless repeat labs show hyponatremia again. -Renal will sign off. Please call if additional questions or concerns (2) AMS (altered mental status): Multifactorial including encephalopathy, postictal state and severe hyponatremia. Mental status is improving. Monitor mental status. (3) Seizure: Patient with seizure possibly due to severe hyponatremia and history of brain tumor. Continue work-up for other etiology of seizures. Patient is on Keppra per primary team. Subjective She feels better today, denies any shortness of breath or confusion. She is still wobbly on ambulation and requires assistance. She has a one-to-one sitter. Sodium is better at 139 today Review of Systems Review of Systems: All systems reviewed & are unremarkable except as noted in HPI & below Physical Exam Physical Exam: General exam: Appears comfortable, no acute distress HEENT: Pupils are equal and reactive to light Neck: No JVD, neck is supple trachea is midline Respiratory system: Clear breath sounds bilaterally. Gastrointestinal: Abdomen is soft, non distended, non tender, bowel sounds are present CVS: Regular rate and rhythm. No murmurs, rubs or gallops Musculoskeletal: No joint or muscle tenderness Extremities: Non tender, no edema, peripheral pulses are present Neuro: Oriented, no tremors, no focal neurological deficits Skin: No rashes Results & Data Vital Signs (Past 12 Hours) Vital Signs Temp Pulse Resp BP Pulse Ox 09/04/19 06:50 36.7 C 52 L 16 111/63 94 09/03/19 22:55 36.7 C 53 L 16 112/65 96 Laboratory Results Laboratory Results - last 24 hr 09/03/19 09/03/19 09/04/19 11:19 18:20 08:20 Sodium 139 Potassium 3.8 Chloride 105 Carbon Dioxide 28 Anion Gap 6.0 BUN 5 L Creatinine 0.58 L Est Cr Clr Drug Dosing 100.2 Est GFR ( Amer) 118.6 Est GFR (Non-Af Amer) 102.3 BUN/Creatinine Ratio 8.2 L Glucose 96 POC Glucose 84 Calcium 9.4 Specimen Hemolysis Urine Color Yellow Urine Appearance Cloudy A Urine pH 5.5 Ur Specific [place] 1.009 Urine Protein Negative Urine Glucose (UA) Negative Urine Ketones Negative Urine Blood 3+ H Urine Nitrite Negative Urine Bilirubin Negative Urine Urobilinogen Negative Ur Leukocyte Esterase 3+ H Urine WBC (Auto) >30 H Urine RBC (Auto) 0-4 U Hyaline Cast (Auto) 0 U Epithel Cells (Auto) >30 H Urine Bacteria (Auto) 3+ H (1) AMS (altered mental status) Altered mental status type: unspecified Qualified Code(s): R41.82 - Altered mental status, unspecified
[2019-09-04] MEDS: levETIRAcetam 500 MG TAB PO SCH ×2 (11:39→21:32)
--- NOTE | 2019-09-04 14:47 | Hospitalist Progress Note ---
Date of Service September 04, 2019 Assessment & Plan (1) Hyponatremia: Severe hyponatremia possibly secondary to low solute intake versus recent nausea and vomiting versus continued alcohol use. Presented with new onset seizure likely secondary to hyponatremia Nephrology has been consulted Initial management of hyponatremia was very difficult to control She received normal saline, hypertonic saline and D5 with DDAVP to correct sodium level She was in the ICU Patient continues to be nauseous and vomiting so Zofran was scheduled. As of today sodium level is 128 We will continue fluid restrictions to 1.5 L a day with 2 g sodium diet Sodium has gone up to 141 on 09/02 Hyponatremia has been corrected and the sodium level today is to 139 as on 09/04 Nephrology signed off (2) Seizure: Likely secondary to low sodium doubt any use of alcohol being in the skilled care facility Will monitor for withdrawal symptoms and she has been on alcohol withdrawal protocol Appreciate neurology recommendations. Continue Keppra No more seizures in the hospital Remains stable without any evidence of seizure (3) Leukocytosis: Likely secondary to seizure. Improved today. No evidence of infection is present. Normalized (4) Brain lesion: Indeterminate osseous lesions in the head. Uncertain chronicity as outpatient records are not available for review. Recommend close outpatient follow-up to work this up. Malignancy needs to be excluded. CT scan as of 1211 this bumped did show osseous lesions in the left frontal bone which remains unchanged as of latest CT scan of the head Chondroma, hemangioma all the possibilities but malignancy was not excluded (5) Alcoholism: No clear evidence of withdrawal at this time from a vital sign standpoint. Patient is very lethargic. Continue to monitor for alcohol withdrawal signs and symptoms. No signs and/or symptoms of withdrawal (6) Wernicke encephalopathy: Has had Warnicke's per her brother for 15 years. Baseline abilities are outlined in subjective above. Brother Navarro is her air brush operator. Received very high dose of thiamine for the last day or 2 We will decrease the dose of thiamine 200 mg 3 times daily for today and will change to 200 mg daily from tomorrow Will give thiamine 100 mg daily We will get PT and OT evaluation before discharge No more acute confusion (7) Hypothyroidism: Continue Synthroid per home regimen. (8) Hyperglycemia: No diagnosis of diabetes although she did have one random sugar over 200. I have stopped insulin coverage at this point. Blood sugar glucose can be checked as needed and on daily morning labs. The patient is not reliably eating and there is more of a concern with hypoglycemia at this point. (9) DVT prophylaxis: SCDs for now, would discuss safety of adding chemoprophylaxis in setting of brain lesions with neurology prior to adding but would add chemoprophylaxis no later than tomorrow. Full code Disposition-pending clinical improvement and PT/OT Robin for safety to return home. (10) Fall: Status post fall this morning on 09/02 No significant injuries identified Advised one-to-one sitter for now Will get PT and OT evaluation Discussed with the brother in detail Likely discharge on Saturday Clinically a lot better today and will transfer the patient to medical floor Diagnosed to have UTI Started on intravenous ceftriaxone Urine culture is growing E. coli and sensitivities pending Likely discharge in a day or 2 Subjective 09/01 The patient was seen and examined in telemetry unit She remains confused and has had a fall this morning Minor injuries involving the left knee and left buttock, no loss of consciousness Complains some pain in the left upper extremity but denies any other symptoms 09/02 The patient was seen and examined in telemetry unit She denies any symptoms as of today She will get PT and OT evaluation before discharge's likely on Monday 09/03 The patient was seen and examined in telemetry unit She has been feeling a lot better and does not have any more acute confusion She denies any significant symptoms 1 TO 1 observation is taken away 09/04 The patient was seen and examined in medical floor She has been much better today Denies any acute symptoms and is ready to be discharged from the hospital Review of Systems Review of Systems: All systems reviewed and are unremarkable except as noted below Physical Exam Physical Exam: Lying in bed comfortably without any significant symptoms Constitutional: + ill appearing and + thin; no acute distress Eyes: PERRL, conjunctivae normal, anicteric sclerae ENMT: external ear and nose normal, oropharynx normal Neck: trachea midline, no thyromegaly Respiratory: normal respiratory effort; no respiratory distress Auscultation: lungs clear to auscultation bilaterally Cardiovascular: Rate/Rhythm: regular rate and regular rhythm Heart Sounds: normal S1 and normal S2; no murmur Vessels: no JVD Extremities: no edema Gastrointestinal (Abdomen): Inspection/Auscultation: abdomen normal to inspection and normal bowel sounds; abdomen not distended Percussion/Palpation: abdomen soft; abdomen nontender Skin: no rashes, warm and dry Neurologic: + obtunded Speech / Cognition: + abnormal cognition Psychiatric: Orientation: alert; + uncooperative Affect: + flat affect Insight: + limited insight Judgement: + limited judgement Lymphatic: no cervical or axillary lymphadenopathy Results & Data Vital Signs (Past 12 Hours) Vital Signs Temp Pulse Resp BP Pulse Ox 09/04/19 06:50 36.7 C 52 L 16 111/63 94 Laboratory Results [facility] 09/04/19 08:20 Sodium 139 Potassium 3.8 Chloride 105 Carbon Dioxide 28 BUN 5 L Creatinine 0.58 L Glucose 96 Calcium 9.4 Urine 09/03/19 Range/Units 18:20 Urine Color Yellow Urine Appearance Cloudy A (Clear) Urine pH 5.5 (4.5-7.5) Ur Specific [place] 1.009 (1.000-1.030) Urine Protein Negative (Negative) Urine Glucose (UA) Negative (Negative) Medications Administered Current Inpatient Medications Acetaminophen (Tylenol) 650 mg PO Q4 PRN PRN Reason: Flu Symptoms Stop: 09/29/19 21:26 Albuterol (Duoneb) 3 ml NEB Q2H PRN PRN Reason: Wheezing Stop: 09/29/19 21:26 Folic Acid (Folvite) 1 mg PO QAM [facility] Stop: 10/01/19 08:59 Last Admin: 09/04/19 08:43 Dose: 1 mg Documented by: Gabapentin (Neurontin) 100 mg PO HS [facility] Stop: 09/29/19 21:26 Last Admin: 09/03/19 20:02 Dose: 100 mg Documented by: Heparin Sodium (Beef Lung) (Heparin Sod 10 Unit/Ml Flush) 5 ml FLUSH PRN PRN PRN Reason: Flush Stop: 09/30/19 00:55 Lorazepam (Ativan) 1 mg in 2 mls @ 0.5 mls/min IV UD PRN PRN Reason: seizure Stop: 09/30/19 18:47 Last Admin: 09/01/19 09:52 Dose: 0.5 mls/min Documented by: Thiamine HCl 100 mg/ Syringe 10 mls @ 2 mls/min IV QAM [facility] Stop: 10/04/19 08:59 Last Admin: 09/04/19 08:43 Dose: 2 mls/min Documented by: Ceftriaxone Sodium 1,000 mg/ (Dextrose) 60 mls @ 100 mls/hr IV Q24H [facility]; Protocol Stop: 09/08/19 18:59 Last Infusion: 09/03/19 20:04 Dose: Infused Documented by: Levetiracetam (Keppra) 500 mg PO Q12H [facility] Stop: 09/30/19 22:59 Last Admin: 09/04/19 11:39 Dose: 500 mg Documented by: Levothyroxine Sodium (Synthroid) 75 mcg PO DAILYBB [facility] Stop: 09/30/19 06:29 Last Admin: 09/04/19 06:02 Dose: 75 mcg Documented by: Multivitamins (Multivitamin Tab) 1 tab PO QAM [facility] Stop: 09/30/19 08:59 Last Admin: 09/04/19 08:43 Dose: 1 tab Documented by: Nystatin (Mycostatin) 5 ml PO QID [facility] Stop: 10/03/19 16:59 Last Admin: 09/04/19 13:01 Dose: 5 ml Documented by: Ondansetron HCl (Zofran) 4 mg IV Q6H PRN PRN Reason: Nausea Stop: 09/30/19 18:29 (1) Leukocytosis Leukocytosis type: unspecified Qualified Code(s): D72.829 - Elevated white blood cell count, unspecified
[2019-09-04] MEDS: cefTRIAXone SODIUM 1,000 MG in DEXTROSE 5% 50 ML IV SCH (18:30)
[2019-09-04] MEDS: GABAPENTIN 100 MG CAP PO SCH (21:32)
[2019-09-05 05:26] LABS: Basophils # (auto) 0.03 K/uL (0-0.2); Basophils % (auto) 0.4 %; Eosinophils # (auto) 0.13 K/uL (0-0.5); Eosinophils % (auto) 1.9 %; Hematocrit (blood only) 39.9 % (37-47); Hemoglobin 13.8 g/dL (12.0-16.0); Immature Granulocytes # (auto) 0.01 K/uL (0.00-0.02); Immature Granulocytes % (auto) 0.1 %; Lymphocytes # (auto) 2.07 K/uL (1.2-3.4); Mean Corpuscular Hgb Conc 34.6 g/dL (32-36); Mean Corpuscular Volume 92.6 fL (80-100); Mean Platelet Volume 9.8 fL (7.4-10.4); Monocytes % (auto) 11.6 %; Neutrophils # (auto) 3.87 K/uL (1.4-6.5); Platelet Count 314 K/uL (130-400); RDW Standard Deviation 47.4 fL (36.4-46.3); Red Blood Count 4.31 M/uL (4.2-5.4); White Blood Count 6.91 K/uL (4.8-10.8)
[2019-09-05] MEDS: LEVOTHYROXINE SODIUM 75 MCG TABLET PO SCH (05:54)
[2019-09-05 05:57] LABS: BUN Creatinine Ratio 9.3 (10-20); Calcium 9.2 mg/dl (8.5-10.1); Creatinine Clr Calc Pharmacy 121.1 ml/min; Est GFR (African American) 126.2; Est GFR (Non-African American) 108.9; Magnesium 2.1 mg/dl (1.8-2.4); Phosphorus 4.4 mg/dl (2.5-4.9); Potassium 3.4 mmol/L (3.5-5.1)
[2019-09-05] MEDS: NYSTATIN SUSP 500,000 U/5 ML UDC PO SCH ×4 (09:04→21:37)
[2019-09-05] MEDS: FOLIC ACID 1 MG TAB PO SCH (09:04)
[2019-09-05] MEDS: THIAMINE HCL 100 MG in SYRINGE 9 ML IV SCH (09:04)
[2019-09-05] MEDS: MULTIVITAMIN TAB PO SCH (09:04)
[2019-09-05] MEDS: levETIRAcetam 500 MG TAB PO SCH ×2 (11:12→21:38)
--- NOTE | 2019-09-05 16:20 | Hospitalist Progress Note ---
Date of Service September 05, 2019 Assessment & Plan (1) Hyponatremia: Severe hyponatremia possibly secondary to low solute intake versus recent nausea and vomiting versus continued alcohol use. Presented with new onset seizure likely secondary to hyponatremia Nephrology has been consulted Initial management of hyponatremia was very difficult to control She received normal saline, hypertonic saline and D5 with DDAVP to correct sodium level She was in the ICU Patient continues to be nauseous and vomiting so Zofran was scheduled. As of today sodium level is 128 We will continue fluid restrictions to 1.5 L a day with 2 g sodium diet Sodium has gone up to 141 on 09/02 Hyponatremia has been corrected and the sodium level today is to 139 as on 09/04 Nephrology signed off We will check PRP tomorrow (2) Seizure: Likely secondary to low sodium doubt any use of alcohol being in the skilled care facility Will monitor for withdrawal symptoms and she has been on alcohol withdrawal protocol Appreciate neurology recommendations. Continue Keppra No more seizures in the hospital Remains stable without any evidence of seizure (3) Leukocytosis: Likely secondary to seizure. Improved today. No evidence of infection is present. Normalized (4) Brain lesion: Indeterminate osseous lesions in the head. Uncertain chronicity as outpatient records are not available for review. Recommend close outpatient follow-up to work this up. Malignancy needs to be excluded. CT scan as of 1211 this bumped did show osseous lesions in the left frontal bone which remains unchanged as of latest CT scan of the head Chondroma, hemangioma all the possibilities but malignancy was not excluded (5) Alcoholism: No clear evidence of withdrawal at this time from a vital sign standpoint. Patient is very lethargic. Continue to monitor for alcohol withdrawal signs and symptoms. No signs and/or symptoms of withdrawal (6) Wernicke encephalopathy: Has had Warnicke's per her brother for 15 years. Baseline abilities are outlined in subjective above. Brother Navarro is her desizing machine back tender. Received very high dose of thiamine for the last day or 2 We will decrease the dose of thiamine 200 mg 3 times daily for today and will change to 200 mg daily from tomorrow Will give thiamine 100 mg daily We will get PT and OT evaluation before discharge No more acute confusion (7) Hypothyroidism: Continue Synthroid per home regimen. (8) Hyperglycemia: No diagnosis of diabetes although she did have one random sugar over 200. I have stopped insulin coverage at this point. Blood sugar glucose can be checked as needed and on daily morning labs. The patient is not reliably eating and there is more of a concern with hypoglycemia at this point. (9) DVT prophylaxis: SCDs for now, would discuss safety of adding chemoprophylaxis in setting of brain lesions with neurology prior to adding but would add chemoprophylaxis no later than tomorrow. Full code Disposition-pending clinical improvement and PT/OT Robin for safety to return home. (10) Fall: Status post fall this morning on 09/02 No significant injuries identified Advised one-to-one sitter for now Will get PT and OT evaluation Discussed with the brother in detail Likely discharge on Saturday Clinically a lot better today and will transfer the patient to medical floor Diagnosed to have UTI Started on intravenous ceftriaxone Urine culture is growing E. coli and sensitivities pending Likely discharge in a day or 2 (11) UTI (urinary tract infection): Noted to have UTI with E. coli Has been getting intravenous ceftriaxone which is sensitive We will continue current antibiotic Subjective 09/01 The patient was seen and examined in telemetry unit She remains confused and has had a fall this morning Minor injuries involving the left knee and left buttock, no loss of consciousness Complains some pain in the left upper extremity but denies any other symptoms 09/02 The patient was seen and examined in telemetry unit She denies any symptoms as of today She will get PT and OT evaluation before discharge's likely on Monday 09/03 The patient was seen and examined in telemetry unit She has been feeling a lot better and does not have any more acute confusion She denies any significant symptoms 1 TO 1 observation is taken away 09/04 The patient was seen and examined in medical floor She has been much better today Denies any acute symptoms and is ready to be discharged from the hospital 09/05 The patient was seen and examined in medical floor She has been doing much better and she is out of bed on a chair Denies any acute symptoms Review of Systems Review of Systems: All systems reviewed and are unremarkable except as noted below Constitutional: + fatigue and + weakness Neurologic: + gait abnormality, + unsteadiness, + falls and + generalized weakness Physical Exam Physical Exam: Sitting on a chair without any acute discomfort Constitutional: + thin; no acute distress Eyes: PERRL, conjunctivae normal, anicteric sclerae ENMT: external ear and nose normal, oropharynx normal Neck: trachea midline, no thyromegaly Respiratory: normal respiratory effort; no respiratory distress Auscultation: lungs clear to auscultation bilaterally Cardiovascular: Rate/Rhythm: regular rate and regular rhythm Heart Sounds: normal S1 and normal S2; no murmur Vessels: no JVD Extremities: no edema Gastrointestinal (Abdomen): Inspection/Auscultation: abdomen normal to inspection and normal bowel sounds; abdomen not distended Percussion/Palpation: abdomen soft; abdomen nontender Skin: no rashes, warm and dry Neurologic: + obtunded Speech / Cognition: + abnormal cognition Psychiatric: Orientation: alert; + uncooperative Affect: + flat affect Insight: + limited insight Judgement: + limited judgement Lymphatic: no cervical or axillary lymphadenopathy Results & Data Vital Signs (Past 12 Hours) Vital Signs Temp Pulse Resp BP BP Pulse Ox 09/05/19 15:03 36.3 C L 53 L 18 118/65 96 09/05/19 07:46 36.9 C 43 L 16 120/63 93 09/05/19 04:42 36.6 C 52 L 16 106/64 96 Laboratory Results Short CBC 09/05/19 Range/Units 05:05 WBC 6.91 (4.8-10.8) K/uL Hgb 13.8 (12.0-16.0) g/dL Hct 39.9 (37-47) % Plt Count 314 (130-400) K/uL BMP 09/05/19 05:05 Sodium 141 Potassium 3.4 L Chloride 107 Carbon Dioxide 28 BUN 4 L Creatinine 0.48 L Glucose 98 Calcium 9.2 Medications Administered Current Inpatient Medications Acetaminophen (Tylenol) 650 mg PO Q4 PRN PRN Reason: Flu Symptoms Stop: 09/29/19 21:26 Albuterol (Duoneb) 3 ml NEB Q2H PRN PRN Reason: Wheezing Stop: 09/29/19 21:26 Folic Acid (Folvite) 1 mg PO QAM [facility] Stop: 10/01/19 08:59 Last Admin: 09/05/19 09:04 Dose: 1 mg Documented by: Gabapentin (Neurontin) 100 mg PO HS [facility] Stop: 09/29/19 21:26 Last Admin: 09/04/19 21:32 Dose: 100 mg Documented by: Heparin Sodium (Beef Lung) (Heparin Sod 10 Unit/Ml Flush) 5 ml FLUSH PRN PRN PRN Reason: Flush Stop: 09/30/19 00:55 Lorazepam (Ativan) 1 mg in 2 mls @ 0.5 mls/min IV UD PRN PRN Reason: seizure Stop: 09/30/19 18:47 Last Admin: 09/01/19 09:52 Dose: 0.5 mls/min Documented by: Thiamine HCl 100 mg/ Syringe 10 mls @ 2 mls/min IV QAM [facility] Stop: 10/04/19 08:59 Last Admin: 09/05/19 09:04 Dose: 2 mls/min Documented by: Ceftriaxone Sodium 1,000 mg/ (Dextrose) 60 mls @ 100 mls/hr IV Q24H [facility]; Protocol Stop: 09/08/19 18:59 Last Infusion: 09/04/19 19:04 Dose: Infused Documented by: Levetiracetam (Keppra) 500 mg PO Q12H [facility] Stop: 09/30/19 22:59 Last Admin: 09/05/19 11:12 Dose: 500 mg Documented by: Levothyroxine Sodium (Synthroid) 75 mcg PO DAILYBB [facility] Stop: 09/30/19 06:29 Last Admin: 09/05/19 05:54 Dose: 75 mcg Documented by: Multivitamins (Multivitamin Tab) 1 tab PO [facility] Stop: 09/30/19 08:59 Last Admin: 09/05/19 09:04 Dose: 1 tab Documented by: Nystatin (Mycostatin) 5 ml PO QID [facility] Stop: 10/03/19 16:59 Last Admin: 09/05/19 12:29 Dose: 5 ml Documented by: Ondansetron HCl (Zofran) 4 mg IV Q6H PRN PRN Reason: Nausea Stop: 09/30/19 18:29 (1) Leukocytosis Leukocytosis type: unspecified Qualified Code(s): D72.829 - Elevated white blood cell count, unspecified
[2019-09-05 16:33] LABS: Cdiff Antigen Positive; Cdiff Toxin A+B Negative Cdiff Toxin (Negative)
[2019-09-05] MEDS: cefTRIAXone SODIUM 1,000 MG in DEXTROSE 5% 50 ML IV SCH (18:17)
[2019-09-05] MEDS: GABAPENTIN 100 MG CAP PO SCH (21:38)
[2019-09-06] MEDS: LEVOTHYROXINE SODIUM 75 MCG TABLET PO SCH (05:13)
[2019-09-06] MEDS: MULTIVITAMIN TAB PO SCH (08:08)
[2019-09-06] MEDS: NYSTATIN SUSP 500,000 U/5 ML UDC PO SCH ×4 (08:08→22:02)
[2019-09-06] MEDS: FOLIC ACID 1 MG TAB PO SCH (08:08)
[2019-09-06] MEDS: THIAMINE HCL 100 MG in SYRINGE 9 ML IV SCH (08:58)
[2019-09-06] MEDS: levETIRAcetam 500 MG TAB PO SCH ×2 (10:31→22:02)
--- NOTE | 2019-09-06 13:12 | Hospitalist Progress Note ---
Date of Service September 06, 2019 Assessment & Plan (1) Hyponatremia: Severe hyponatremia possibly secondary to low solute intake versus recent nausea and vomiting versus continued alcohol use. Presented with new onset seizure likely secondary to hyponatremia Nephrology has been consulted Initial management of hyponatremia was very difficult to control She received normal saline, hypertonic saline and D5 with DDAVP to correct sodium level She was in the ICU Patient continues to be nauseous and vomiting so Zofran was scheduled. As of today sodium level is 128 We will continue fluid restrictions to 1.5 L a day with 2 g sodium diet Sodium has gone up to 141 on 09/02 Hyponatremia has been corrected and the sodium level today is to 139 as on 09/04 Nephrology signed off We will check PRP tomorrow 09/07 (2) Seizure: Likely secondary to low sodium doubt any use of alcohol being in the skilled care facility Will monitor for withdrawal symptoms and she has been on alcohol withdrawal protocol Appreciate neurology recommendations. Continue Keppra No more seizures in the hospital Remains stable without any evidence of seizure (3) Leukocytosis: Likely secondary to seizure. Improved today. No evidence of infection is present. Normalized (4) Brain lesion: Indeterminate osseous lesions in the head. Uncertain chronicity as outpatient records are not available for review. Recommend close outpatient follow-up to work this up. Malignancy needs to be excluded. CT scan as of 1211 this bumped did show osseous lesions in the left frontal bone which remains unchanged as of latest CT scan of the head Chondroma, hemangioma all the possibilities but malignancy was not excluded (5) Alcoholism: No clear evidence of withdrawal at this time from a vital sign standpoint. Patient is very lethargic. Continue to monitor for alcohol withdrawal signs and symptoms. No signs and/or symptoms of withdrawal We will change her IV medications to oral (6) Wernicke encephalopathy: Has had Warnicke's per her brother for 15 years. Baseline abilities are outlined in subjective above. Brother Navarro is her size mixer. Received very high dose of thiamine for the last day or 2 We will decrease the dose of thiamine 200 mg 3 times daily for today and will change to 200 mg daily from tomorrow Will give thiamine 100 mg daily We will get PT and OT evaluation before discharge No more acute confusion and she is back at her baseline (7) Hypothyroidism: Continue Synthroid per home regimen. (8) Hyperglycemia: No diagnosis of diabetes although she did have one random sugar over 200. I have stopped insulin coverage at this point. Blood sugar glucose can be checked as needed and on daily morning labs. The patient is not reliably eating and there is more of a concern with hypoglycemia at this point. (9) DVT prophylaxis: SCDs for now, would discuss safety of adding chemoprophylaxis in setting of brain lesions with neurology prior to adding but would add chemoprophylaxis no later than tomorrow. Full code Disposition-pending clinical improvement and PT/OT Robin for safety to return home. (10) Fall: Status post fall this morning on 09/02 No significant injuries identified Advised one-to-one sitter for now Will get PT and OT evaluation Discussed with the brother in detail Likely discharge on Saturday Clinically a lot better today and will transfer the patient to medical floor Diagnosed to have UTI Started on intravenous ceftriaxone Urine culture is growing E. coli and sensitivities pending Likely discharge in a day or 2 (11) UTI (urinary tract infection): Noted to have UTI with E. coli Has been getting intravenous ceftriaxone which is sensitive We will continue current antibiotic Subjective 09/01 The patient was seen and examined in telemetry unit She remains confused and has had a fall this morning Minor injuries involving the left knee and left buttock, no loss of consciousness Complains some pain in the left upper extremity but denies any other symptoms 09/02 The patient was seen and examined in telemetry unit She denies any symptoms as of today She will get PT and OT evaluation before discharge's likely on Monday 09/03 The patient was seen and examined in telemetry unit She has been feeling a lot better and does not have any more acute confusion She denies any significant symptoms 1 TO 1 observation is taken away 09/04 The patient was seen and examined in medical floor She has been much better today Denies any acute symptoms and is ready to be discharged from the hospital 09/05 The patient was seen and examined in medical floor She has been doing much better and she is out of bed on a chair Denies any acute symptoms 09/06 The patient was seen and examined in medical floor She has been lot better No more confusion and she is at her baseline Denies any symptoms whatsoever Review of Systems Review of Systems: All systems reviewed and are unremarkable except as noted below Constitutional: + fatigue and + weakness Neurologic: + gait abnormality, + unsteadiness, + falls and + generalized weakness Physical Exam Physical Exam: Lying on bed without any acute symptoms Constitutional: + thin; no acute distress Eyes: PERRL, conjunctivae normal, anicteric sclerae ENMT: external ear and nose normal, oropharynx normal Neck: trachea midline, no thyromegaly Respiratory: normal respiratory effort; no respiratory distress Auscultation: lungs clear to auscultation bilaterally Cardiovascular: Rate/Rhythm: regular rate and regular rhythm Heart Sounds: normal S1 and normal S2; no murmur Vessels: no JVD Extremities: no edema Gastrointestinal (Abdomen): Inspection/Auscultation: abdomen normal to inspection and normal bowel sounds; abdomen not distended Percussion/Palpation: abdomen soft; abdomen nontender Skin: no rashes, warm and dry Neurologic: Speech / Cognition: + abnormal cognition Alert, awake and oriented. No focal neuro deficit Psychiatric: Orientation: alert; + uncooperative Affect: + flat affect Insight: + limited insight Judgement: + limited judgement Lymphatic: no cervical or axillary lymphadenopathy Results & Data Vital Signs (Past 12 Hours) Vital Signs Temp Pulse Resp BP Pulse Ox 09/06/19 07:42 36.8 C 51 L 15 104/57 L 95 Medications Administered Current Inpatient Medications Acetaminophen (Tylenol) 650 mg PO Q4 PRN PRN Reason: Flu Symptoms Stop: 09/29/19 21:26 Albuterol (Duoneb) 3 ml NEB Q2H PRN PRN Reason: Wheezing Stop: 09/29/19 21:26 Folic Acid (Folvite) 1 mg PO QAM [facility] Stop: 10/01/19 08:59 Last Admin: 09/06/19 08:08 Dose: 1 mg Documented by: Gabapentin (Neurontin) 100 mg PO HS [facility] Stop: 09/29/19 21:26 Last Admin: 09/05/19 21:38 Dose: 100 mg Documented by: Heparin Sodium (Beef Lung) (Heparin Sod 10 Unit/Ml Flush) 5 ml FLUSH PRN PRN PRN Reason: Flush Stop: 09/30/19 00:55 Lorazepam (Ativan) 1 mg in 2 mls @ 0.5 mls/min IV UD PRN PRN Reason: seizure Stop: 09/30/19 18:47 Last Admin: 09/01/19 09:52 Dose: 0.5 mls/min Documented by: Thiamine HCl 100 mg/ Syringe 10 mls @ 2 mls/min IV QAM [facility] Stop: 10/04/19 08:59 Last Admin: 09/06/19 08:58 Dose: 2 mls/min Documented by: Ceftriaxone Sodium 1,000 mg/ (Dextrose) 60 mls @ 100 mls/hr IV Q24H [facility]; Protocol Stop: 09/08/19 18:59 Last Infusion: 09/05/19 19:01 Dose: Infused Documented by: Levetiracetam (Keppra) 500 mg PO Q12H [facility] Stop: 09/30/19 22:59 Last Admin: 09/06/19 10:31 Dose: 500 mg Documented by: Levothyroxine Sodium (Synthroid) 75 mcg PO DAILYBB [facility] Stop: 09/30/19 06:29 Last Admin: 09/06/19 05:13 Dose: 75 mcg Documented by: Multivitamins (Multivitamin Tab) 1 tab PO QAM [facility] Stop: 09/30/19 08:59 Last Admin: 09/06/19 08:08 Dose: 1 tab Documented by: Nystatin (Mycostatin) 5 ml PO QID [facility] Stop: 10/03/19 16:59 Last Admin: 09/06/19 08:08 Dose: 5 ml Documented by: Ondansetron HCl (Zofran) 4 mg IV Q6H PRN PRN Reason: Nausea Stop: 09/30/19 18:29 (1) Leukocytosis Leukocytosis type: unspecified Qualified Code(s): D72.829 - Elevated white blood cell count, unspecified
[2019-09-06] MEDS: cefTRIAXone SODIUM 1,000 MG in DEXTROSE 5% 50 ML IV SCH (18:03)
[2019-09-06] MEDS: GABAPENTIN 100 MG CAP PO SCH (22:02)
[2019-09-07] MEDS: LEVOTHYROXINE SODIUM 75 MCG TABLET PO SCH (05:55)
[2019-09-07 07:33] LABS: Basophils # (auto) 0.04 K/uL (0-0.2); Basophils % (auto) 0.6 %; Eosinophils # (auto) 0.13 K/uL (0-0.5); Hematocrit (blood only) 41.1 % (37-47); Hemoglobin 14.2 g/dL (12.0-16.0); Immature Granulocytes # (auto) 0.03 K/uL (0.00-0.02); Immature Granulocytes % (auto) 0.5 %; Lymphocytes % (auto) 34.6 %; Mean Corpuscular Hemoglobin 31.9 pg (25-34); Mean Corpuscular Hgb Conc 34.5 g/dL (32-36); Mean Corpuscular Volume 92.4 fL (80-100); Mean Platelet Volume 10.5 fL (7.4-10.4); Monocytes # (auto) 0.65 K/uL (0.11-0.59); Monocytes % (auto) 10.2 %; Neutrophils # (auto) 3.31 K/uL (1.4-6.5); Neutrophils % (auto) 52.1 %; Platelet Count 303 K/uL (130-400); RDW Coefficient of Variation 14.2 % (11.5-14.5); RDW Standard Deviation 48.1 fL (36.4-46.3); Red Blood Count 4.45 M/uL (4.2-5.4); White Blood Count 6.36 K/uL (4.8-10.8)
[2019-09-07] MEDS: FOLIC ACID 1 MG TAB PO SCH (07:38)
[2019-09-07] MEDS: NYSTATIN SUSP 500,000 U/5 ML UDC PO SCH ×4 (07:38→21:28)
[2019-09-07] MEDS: MULTIVITAMIN TAB PO SCH (07:38)
[2019-09-07 08:03] LABS: BUN Creatinine Ratio 10.4 (10-20); Calcium 9.5 mg/dl (8.5-10.1); Creatinine Clr Calc Pharmacy 86.7 ml/min; Est GFR (African American) 113.1; Est GFR (Non-African American) 97.6; Magnesium 2.2 mg/dl (1.8-2.4); Potassium 3.7 mmol/L (3.5-5.1)
[2019-09-07] MEDS: THIAMINE HCL 100 MG in SYRINGE 9 ML IV SCH (08:43)
[2019-09-07] MEDS: levETIRAcetam 500 MG TAB PO SCH ×2 (10:30→22:23)
--- NOTE | 2019-09-07 12:21 | Hospitalist Progress Note ---
Date of Service September 07, 2019 Assessment & Plan (1) Hyponatremia: Severe hyponatremia possibly secondary to low solute intake versus recent nausea and vomiting versus continued alcohol use. Presented with new onset seizure likely secondary to hyponatremia Nephrology has been consulted Initial management of hyponatremia was very difficult to control She received normal saline, hypertonic saline and D5 with DDAVP to correct sodium level She was in the ICU Patient continues to be nauseous and vomiting so Zofran was scheduled. As of today sodium level is 128 We will continue fluid restrictions to 1.5 L a day with 2 g sodium diet Sodium has gone up to 141 on 09/02 Hyponatremia has been corrected and the sodium level today is to 139 as on 09/04 Nephrology signed off We will check PRP tomorrow 09/07 Sodium level is up today is 141 and no other electrolyte abnormalities (2) Seizure: Likely secondary to low sodium doubt any use of alcohol being in the skilled care facility Will monitor for withdrawal symptoms and she has been on alcohol withdrawal protocol Appreciate neurology recommendations. Continue Keppra No more seizures in the hospital Remains stable without any evidence of seizure (3) Leukocytosis: Likely secondary to seizure. Improved today. No evidence of infection is present. Normalized (4) Brain lesion: Indeterminate osseous lesions in the head. Uncertain chronicity as outpatient records are not available for review. Recommend close outpatient follow-up to work this up. Malignancy needs to be excluded. CT scan as of 1211 this bumped did show osseous lesions in the left frontal bone which remains unchanged as of latest CT scan of the head Chondroma, hemangioma all the possibilities but malignancy was not excluded (5) Alcoholism: No clear evidence of withdrawal at this time from a vital sign standpoint. Patient is very lethargic. Continue to monitor for alcohol withdrawal signs and symptoms. No signs and/or symptoms of withdrawal We will change her IV medications to oral No signs of withdrawal (6) Wernicke encephalopathy: Has had Warnicke's per her brother for 15 years. Baseline abilities are outlined in subjective above. Brother Navarro is her supervisor forming and tempering. Received very high dose of thiamine for the last day or 2 We will decrease the dose of thiamine 200 mg 3 times daily for today and will change to 200 mg daily from tomorrow Will give thiamine 100 mg daily We will get PT and OT evaluation before discharge No more acute confusion and she is back at her baseline (7) Hypothyroidism: Continue Synthroid per home regimen. (8) Hyperglycemia: No diagnosis of diabetes although she did have one random sugar over 200. I have stopped insulin coverage at this point. Blood sugar glucose can be checked as needed and on daily morning labs. The patient is not reliably eating and there is more of a concern with hypoglycemia at this point. (9) DVT prophylaxis: SCDs for now, would discuss safety of adding chemoprophylaxis in setting of brain lesions with neurology prior to adding but would add chemoprophylaxis no later than tomorrow. Full code Disposition-pending clinical improvement and PT/OT Robin for safety to return home. (10) Fall: Status post fall this morning on 09/02 No significant injuries identified Advised one-to-one sitter for now Will get PT and OT evaluation Discussed with the brother in detail Likely discharge on Saturday Clinically a lot better today and will transfer the patient to medical floor Diagnosed to have UTI Started on intravenous ceftriaxone Urine culture is growing E. coli and sensitivities pending E. coli sensitive to ceftriaxone We will change antibiotic to oral Keflex Likely discharge in a day or 2 (11) UTI (urinary tract infection): Noted to have UTI with E. coli Has been getting intravenous ceftriaxone which is sensitive We will continue current antibiotic Subjective 09/01 The patient was seen and examined in telemetry unit She remains confused and has had a fall this morning Minor injuries involving the left knee and left buttock, no loss of consciousness Complains some pain in the left upper extremity but denies any other symptoms 09/02 The patient was seen and examined in telemetry unit She denies any symptoms as of today She will get PT and OT evaluation before discharge's likely on Monday 09/03 The patient was seen and examined in telemetry unit She has been feeling a lot better and does not have any more acute confusion She denies any significant symptoms 1 TO 1 observation is taken away 09/04 The patient was seen and examined in medical floor She has been much better today Denies any acute symptoms and is ready to be discharged from the hospital 09/05 The patient was seen and examined in medical floor She has been doing much better and she is out of bed on a chair Denies any acute symptoms 09/06 The patient was seen and examined in medical floor She has been lot better No more confusion and she is at her baseline Denies any symptoms whatsoever 09/07 The patient was seen and examined in medical floor She denies any complaints and she is ready to be discharged Review of Systems Review of Systems: All systems reviewed and are unremarkable except as noted below Constitutional: + weakness Neurologic: + gait abnormality, + unsteadiness, + falls and + generalized weakness Physical Exam Physical Exam: Lying in bed comfortably Constitutional: + thin; no acute distress Eyes: PERRL, conjunctivae normal, anicteric sclerae ENMT: external ear and nose normal, oropharynx normal Neck: trachea midline, no thyromegaly Respiratory: normal respiratory effort; no respiratory distress Auscultation: lungs clear to auscultation bilaterally Cardiovascular: Rate/Rhythm: regular rate and regular rhythm Heart Sounds: normal S1 and normal S2; no murmur Vessels: no JVD Extremities: no edema Gastrointestinal (Abdomen): Inspection/Auscultation: abdomen normal to inspection and normal bowel sounds; abdomen not distended Percussion/Palpation: abdomen soft; abdomen nontender Skin: no rashes, warm and dry Neurologic: Speech / Cognition: + abnormal cognition Psychiatric: Orientation: alert; + uncooperative Affect: + flat affect Insight: + limited insight Judgement: + limited judgement Lymphatic: no cervical or axillary lymphadenopathy Results & Data Vital Signs (Past 12 Hours) Vital Signs Temp Pulse Resp BP Pulse Ox 09/07/19 08:12 36.6 C 53 L 16 114/76 96 Laboratory Results Short CBC 09/07/19 Range/Units 07:04 WBC 6.36 (4.8-10.8) K/uL Hgb 14.2 (12.0-16.0) g/dL Hct 41.1 (37-47) % Plt Count 303 (130-400) K/uL BMP 09/07/19 07:04 Sodium 141 Potassium 3.7 Chloride 107 Carbon Dioxide 29 BUN 7 Creatinine 0.67 Glucose 98 Calcium 9.5 Medications Administered Current Inpatient Medications Acetaminophen (Tylenol) 650 mg PO Q4 PRN PRN Reason: Flu Symptoms Stop: 09/29/19 21:26 Albuterol (Duoneb) 3 ml NEB Q2H PRN PRN Reason: Wheezing Stop: 09/29/19 21:26 Folic Acid ([facility]) [facility] [place]: 10/01/19 08:59 Last Admin: 09/07/19 07:38 Dose: 1 mg Documented by: Gabapentin (Neurontin) 100 mg PO HS [facility] Stop: 09/29/19 21:26 Last Admin: 09/06/19 22:02 Dose: 100 mg Documented by: Heparin Sodium (Beef Lung) (Heparin Sod 10 Unit/Ml Flush) 5 ml FLUSH PRN PRN PRN Reason: Flush Stop: 09/30/19 00:55 Lorazepam (Ativan) 1 mg in 2 mls @ 0.5 mls/min IV UD PRN PRN Reason: seizure Stop: 09/30/19 18:47 Last Admin: 09/01/19 09:52 Dose: 0.5 mls/min Documented by: Thiamine HCl 100 mg/ Syringe 10 mls @ 2 mls/min IV QAM [facility] Stop: 10/04/19 08:59 Last Admin: 09/07/19 08:43 Dose: 2 mls/min Documented by: Ceftriaxone Sodium 1,000 mg/ (Dextrose) 60 mls @ 100 mls/hr IV Q24H [facility]; Pr otocol Stop: 09/08/19 18:59 Last Infusion: 09/06/19 19:01 Dose: Infused Documented by: Levetiracetam (Keppra) 500 mg PO Q12H [facility] Stop: 09/30/19 22:59 Last Admin: 09/07/19 10:30 Dose: 500 mg Documented by: Levothyroxine Sodium (Synthroid) 75 mcg PO DAILYBB [facility] Stop: 09/30/19 06:29 Last Admin: 09/07/19 05:55 Dose: 75 mcg Documented by: Multivitamins (Multivitamin Tab) 1 tab PO QAM [facility] Stop: 09/30/19 08:59 Last Admin: 09/07/19 07:38 Dose: 1 tab Documented by: Nystatin (Mycostatin) 5 ml PO QID [facility] Stop: 10/03/19 16:59 Last Admin: 09/07/19 12:08 Dose: 5 ml Documented by: Ondansetron HCl (Zofran) 4 mg IV Q6H PRN PRN Reason: Nausea Stop: 09/30/19 18:29 (1) Leukocytosis Leukocytosis type: unspecified Qualified Code(s): D72.829 - Elevated white blood cell count, unspecified
[2019-09-07] MEDS: cefTRIAXone SODIUM 1,000 MG in DEXTROSE 5% 50 ML IV SCH (19:38)
[2019-09-07] MEDS: GABAPENTIN 100 MG CAP PO SCH (21:28)
[2019-09-08] MEDS: LEVOTHYROXINE SODIUM 75 MCG TABLET PO SCH (05:44)
[2019-09-08] MEDS: FOLIC ACID 1 MG TAB PO SCH (08:44)
[2019-09-08] MEDS: MULTIVITAMIN TAB PO SCH (08:45)
[2019-09-08] MEDS: NYSTATIN SUSP 500,000 U/5 ML UDC PO SCH ×4 (08:45→22:02)
[2019-09-08] MEDS: THIAMINE HCL 100 MG in SYRINGE 9 ML IV SCH (09:12)
[2019-09-08] MEDS: levETIRAcetam 500 MG TAB PO SCH ×2 (10:49→22:02)
--- NOTE | 2019-09-08 16:34 | Hospitalist Progress Note ---
Date of Service September 08, 2019 Assessment & Plan (1) Hyponatremia: Severe hyponatremia possibly secondary to low solute intake versus recent nausea and vomiting versus continued alcohol use. Presented with new onset seizure likely secondary to hyponatremia Nephrology has been consulted Initial management of hyponatremia was very difficult to control She received normal saline, hypertonic saline and D5 with DDAVP to correct sodium level She was in the ICU Patient continues to be nauseous and vomiting so Zofran was scheduled. As of today sodium level is 128 We will continue fluid restrictions to 1.5 L a day with 2 g sodium diet Sodium has gone up to 141 on 09/02 Hyponatremia has been corrected and the sodium level today is to 139 as on 09/04 Nephrology signed off We will check PRP tomorrow 09/07 Sodium level is up today is 141 and no other electrolyte abnormalities We will check sodium level on discharge (2) Seizure: Likely secondary to low sodium doubt any use of alcohol being in the skilled care facility Will monitor for withdrawal symptoms and she has been on alcohol withdrawal protocol Appreciate neurology recommendations. Continue Keppra No more seizures in the hospital Remains stable without any evidence of seizure Continue current medications (3) Leukocytosis: Likely secondary to seizure. Improved today. No evidence of infection is present. Normalized (4) Brain lesion: Indeterminate osseous lesions in the head. Uncertain chronicity as outpatient records are not available for review. Recommend close outpatient follow-up to work this up. Malignancy needs to be excluded. CT scan as of 1211 this bumped did show osseous lesions in the left frontal bone which remains unchanged as of latest CT scan of the head Chondroma, hemangioma all the possibilities but malignancy was not excluded (5) Alcoholism: No clear evidence of withdrawal at this time from a vital sign standpoint. Patient is very lethargic. Continue to monitor for alcohol withdrawal signs and symptoms. No signs and/or symptoms of withdrawal We will change her IV medications to oral No signs of withdrawal (6) Wernicke encephalopathy: Has had Warnicke's per her brother for 15 years. Baseline abilities are outlined in subjective above. Brother Navarro is her florist supplies salesperson. Received very high dose of thiamine for the last day or 2 We will decrease the dose of thiamine 200 mg 3 times daily for today and will change to 200 mg daily from tomorrow Will give thiamine 100 mg daily We will get PT and OT evaluation before discharge No more acute confusion and she is back at her baseline Back to her baseline (7) Hypothyroidism: Continue Synthroid per home regimen. (8) Hyperglycemia: No diagnosis of diabetes although she did have one random sugar over 200. I have stopped insulin coverage at this point. Blood sugar glucose can be checked as needed and on daily morning labs. The patient is not reliably eating and there is more of a concern with hypoglycemia at this point. (9) DVT prophylaxis: SCDs for now, would discuss safety of adding chemoprophylaxis in setting of brain lesions with neurology prior to adding but would add chemoprophylaxis no later than tomorrow. Full code Disposition-pending clinical improvement and PT/OT Robin for safety to return home. (10) Fall: Status post fall this morning on 09/02 No significant injuries identified Advised one-to-one sitter for now Will get PT and OT evaluation Discussed with the brother in detail Likely discharge on Saturday Clinically a lot better today and will transfer the patient to medical floor Denied skilled care facility placement following peer to peer interaction Discussed with the brother in detail who will come from [place] on to take her sister to [place] She can have physical therapy while in [place] (11) UTI (urinary tract infection): Noted to have UTI with E. coli Has been getting intravenous ceftriaxone which is sensitive We will continue current antibiotic for a total of 7 days Subjective 09/01 The patient was seen and examined in telemetry unit She remains confused and has had a fall this morning Minor injuries involving the left knee and left buttock, no loss of consciousness Complains some pain in the left upper extremity but denies any other symptoms 09/02 The patient was seen and examined in telemetry unit She denies any symptoms as of today She will get PT and OT evaluation before discharge's likely on Monday 09/03 The patient was seen and examined in telemetry unit She has been feeling a lot better and does not have any more acute confusion She denies any significant symptoms 1 TO 1 observation is taken away 09/04 The patient was seen and examined in medical floor She has been much better today Denies any acute symptoms and is ready to be discharged from the hospital 09/05 The patient was seen and examined in medical floor She has been doing much better and she is out of bed on a chair Denies any acute symptoms 09/06 The patient was seen and examined in medical floor She has been lot better No more confusion and she is at her baseline Denies any symptoms whatsoever 09/07 The patient was seen and examined in medical floor She denies any complaints and she is ready to be discharged 09/08 The patient was seen and examined in medical floor She denies any symptoms today She has been ambulating with some difficulty and getting better day by day Review of Systems Review of Systems: All systems reviewed and are unremarkable except as noted below Constitutional: + weakness Neurologic: + gait abnormality, + unsteadiness, + falls and + generalized weakness Physical Exam Physical Exam: Sitting on a chair without any acute distress Constitutional: + thin; no acute distress Eyes: PERRL, conjunctivae normal, anicteric sclerae ENMT: external ear and nose normal, oropharynx normal Neck: trachea midline, no thyromegaly Respiratory: normal respiratory effort; no respiratory distress Auscultation: lungs clear to auscultation bilaterally Cardiovascular: Rate/Rhythm: regular rate and regular rhythm Heart Sounds: normal S1 and normal S2; no murmur Vessels: no JVD Extremities: no edema Gastrointestinal (Abdomen): Inspection/Auscultation: abdomen normal to inspection and normal bowel sounds; abdomen not distended Percussion/Palpation: abdomen soft; abdomen nontender Skin: no rashes, warm and dry Neurologic: Speech / Cognition: + abnormal cognition Psychiatric: Orientation: alert; + uncooperative Affect: + flat affect Insight: + limited insight Judgement: + limited judgement Lymphatic: no cervical or axillary lymphadenopathy Results & Data Vital Signs (Past 12 Hours) Vital Signs Temp Pulse Pulse Resp BP BP Pulse Ox 09/08/19 14:57 36.8 C 56 L 18 95/61 L 95 09/08/19 06:58 36.9 C 56 L 16 107/68 94 Medications Administered Current Inpatient Medications Acetaminophen (Tylenol) 650 mg PO Q4 PRN PRN Reason: Flu Symptoms Stop: 09/29/19 21:26 Albuterol (Duoneb) 3 ml NEB Q2H PRN PRN Reason: Wheezing Stop: 09/29/19 21:26 Folic Acid (Folvite) 1 mg PO QAM [facility] Stop: 10/01/19 08:59 Last Admin: 09/08/19 08:44 Dose: 1 mg Documented by: Gabapentin (Neurontin) 100 mg PO HS [facility] Stop: 09/29/19 21:26 Last Admin: 09/07/19 21:28 Dose: 100 mg Documented by: Heparin Sodium (Beef Lung) (Heparin Sod 10 Unit/Ml Flush) 5 ml FLUSH PRN PRN PRN Reason: Flush Stop: 09/30/19 00:55 Lorazepam (Ativan) 1 mg in 2 mls @ 0.5 mls/min IV UD PRN PRN Reason: seizure Stop: 09/30/19 18:47 Last Admin: 09/01/19 09:52 Dose: 0.5 mls/min Documented by: Thiamine HCl 100 mg/ Syringe 10 mls @ 2 mls/min IV QAM [facility] Stop: 10/04/19 08:59 Last Admin: 09/08/19 09:12 Dose: 2 mls/min Documented by: Ceftriaxone Sodium 1,000 mg/ (Dextrose) 60 mls @ 100 mls/hr IV Q24H [facility]; Protocol Stop: 09/08/19 18:59 Last Infusion: 09/07/19 20:22 Dose: Infused Documented by: Levetiracetam (Keppra) 500 mg PO Q12H [facility] Stop: 09/30/19 22:59 Last Admin: 09/08/19 10:49 Dose: 500 mg Documented by: Levothyroxine Sodium (Synthroid) 75 mcg PO DAILYBB [facility] Stop: 09/30/19 06:29 Last Admin: 09/08/19 05:44 Dose: 75 mcg Documented by: Multivitamins ([facility]ivitamin Tab) [facility] [place]: 09/30/19 08:59 Last Admin: 09/08/19 08:45 Dose: 1 tab Documented by: Nystatin (Mycostatin) 5 ml PO QID [facility] Stop: 10/03/19 16:59 Last Admin: 09/08/19 12:43 Dose: 5 ml Documented by: Ondansetron HCl (Zofran) 4 mg IV Q6H PRN PRN Reason: Nausea Stop: 09/30/19 18:29 (1) Leukocytosis Leukocytosis type: unspecified Qualified Code(s): D72.829 - Elevated white blood cell count, unspecified
[2019-09-08] MEDS: GABAPENTIN 100 MG CAP PO SCH (22:02)
[2019-09-09] MEDS: LEVOTHYROXINE SODIUM 75 MCG TABLET PO SCH (05:56)
[2019-09-09] MEDS: NYSTATIN SUSP 500,000 U/5 ML UDC PO SCH ×4 (09:06→22:06)
[2019-09-09] MEDS: MULTIVITAMIN TAB PO SCH (09:07)
[2019-09-09] MEDS: FOLIC ACID 1 MG TAB PO SCH (09:07)
--- NOTE | 2019-09-09 09:46 | Hospitalist Progress Note ---
Date of Service September 09, 2019 Assessment & Plan (1) Hyponatremia: Severe hyponatremia possibly secondary to low solute intake versus recent nausea and vomiting versus continued alcohol use. Presented with new onset seizure likely secondary to hyponatremia Nephrology has been consulted Initial management of hyponatremia was very difficult to control She received normal saline, hypertonic saline and D5 with DDAVP to correct sodium level She was in the ICU She was then nauseous and vomiting so Zofran was scheduled. Previous sodium level is 128 We will continue fluid restrictions to 1.5 L a day with 2 g sodium diet Sodium has gone up to 141 on 09/02, Na level 141 also on 09/05 and 09/07 Nephrology signed off No other electrolyte abnormalities (2) Seizure: Likely secondary to low sodium doubt any use of alcohol being in the skilled care facility Will monitor for withdrawal symptoms and she has been on alcohol withdrawal protocol Appreciate neurology recommendations. Continue Keppra No more seizures in the hospital Remains stable without any evidence of seizure Continue current medications (3) Leukocytosis: Likely secondary to seizure. No evidence of infection is present. Normalized on 09/01 (4) Brain lesion: Indeterminate osseous lesions in the head. Uncertain chronicity as outpatient records are not available for review. Recommend close outpatient follow-up to work this up. Malignancy needs to be excluded. CT scan as of 1211 this bumped did show osseous lesions in the left frontal bone which remains unchanged as of latest CT scan of the head Chondroma, hemangioma all the possibilities but malignancy was not excluded (5) Alcoholism: No clear evidence of withdrawal at this time from a vital sign standpoint. No signs and/or symptoms of withdrawal (6) Wernicke encephalopathy: Has had Warnicke's per her brother for 15 years. Baseline abilities are outlined in subjective above. Brother Navarro is her internet assessor. Received very high dose of thiamine for about 2 days Will give thiamine 100 mg daily We will get PT and OT evaluation before discharge No more acute confusion, pt is back at her baseline (7) Hypothyroidism: Continue Synthroid per home regimen. (8) Hyperglycemia: No diagnosis of diabetes although she did have one random sugar over 200. Blood sugar glucose can be checked as needed and on daily morning labs. The patient is not reliably eating and there is more of a concern with hypoglycemia at this point. (9) DVT prophylaxis: SCDs for now, would discuss safety of adding chemoprophylaxis in setting of brain lesions with neurology prior to adding Full code Disposition-pending clinical improvement and PT/OT Robin for safety to return home. (10) Fall: Status post fall in the morning of 09/02 No significant injuries identified Advised one-to-one sitter for now Will get PT and OT evaluation Discussed with the brother in detail Clinically a lot better, transferred the patient to medical floor Denied skilled care facility placement following peer to peer interaction Discussed with the brother in detail who will come from [place] on to take her sister to [place] She can have physical therapy while in [place] (11) UTI (urinary tract infection): Noted to have UTI with E. coli Has been getting intravenous ceftriaxone which is sensitive, for a total of 7 days Subjective No acute events overnight. Patient sitting in a chair, comfortable, in no acute distress. Denies any fevers, chills, chest pain, shortness of breath, abdominal pain, nausea vomiting. She says she has good oral intake Review of Systems Review of Systems: All systems reviewed & are unremarkable except as noted in HPI & below Constitutional: no fever and no chills Respiratory: no cough and no dyspnea Cardiovascular: + chest pain, + dyspnea on exertion, + palpitations and + edema Gastrointestinal: + abdominal pain, + nausea and + vomiting Physical Exam Physical Exam: Physical Exam: Sitting in a chair, comfortable, in NAD Constitutional: + thin; no acute distress Eyes: PERRL, EOMI, conjunctivae normal, anicteric sclerae ENMT: external ear and nose normal, oropharynx normal Neck: trachea midline, no thyromegaly Respiratory: normal respiratory effort; no respiratory distress Auscultation: lungs clear to auscultation bilaterally Cardiovascular: Rate/Rhythm: regular rate and regular rhythm Heart Sounds: normal S1 and normal S2; no murmur Vessels: no JVD Extremities: no edema Gastrointestinal (Abdomen): Inspection/Auscultation: abdomen normal to inspection and normal bowel sounds; abdomen not distended Percussion/Palpation: abdomen soft; abdomen nontender Skin: no rashes, warm and dry Neurologic: Speech / Cognition: + abnormal cognition, patient can tell me her name, and year after correcting herself, she cannot tell me where she is Psychiatric: Orientation: alert; + uncooperative Affect: + flat affect Insight: + limited insight Judgement: + limited judgement Lymphatic: no cervical or axillary lymphadenopathy Results & Data Vital Signs (Past 12 Hours) Vital Signs Temp Pulse Pulse Resp BP Pulse Ox 09/09/19 07:59 37.2 C 58 L 14 102/66 94 09/08/19 22:48 36.9 C 57 L 18 111/65 95 Laboratory Results no labs in last 24 hrs Medications Administered Current Inpatient Medications Acetaminophen (Tylenol) 650 mg PO Q4 PRN PRN Reason: Flu Symptoms Stop: 09/29/19 21:26 Albuterol (Duoneb) 3 ml NEB Q2H PRN PRN Reason: Wheezing Stop: 09/29/19 21:26 Folic Acid (Folvite) 1 mg PO QAM [facility] Stop: 10/01/19 08:59 Last Admin: 09/09/19 09:07 Dose: 1 mg Documented by: Gabapentin (Neurontin) 100 mg PO HS [facility] Stop: 09/29/19 21:26 Last Admin: 09/08/19 22:02 Dose: 100 mg Documented by: Heparin Sodium (Beef Lung) (Heparin Sod 10 Unit/Ml Flush) 5 ml FLUSH PRN PRN PRN Reason: Flush Stop: 09/30/19 00:55 Lorazepam (Ativan) 1 mg in 2 mls @ 0.5 mls/min IV UD PRN PRN Reason: seizure Stop: 09/30/19 18:47 Last Admin: 09/01/19 09:52 Dose: 0.5 mls/min Documented by: Thiamine HCl 100 mg/ Syringe 10 mls @ 2 mls/min IV QAM [facility] Stop: 10/04/19 08:59 Last Admin: 09/08/19 09:12 Dose: 2 mls/min Documented by: Levetiracetam (Keppra) 500 mg PO Q12H [facility] Stop: 09/30/19 22:59 Last Admin: 09/08/19 22:02 Dose: 500 mg Documented by: Levothyroxine Sodium (Synthroid) 75 mcg PO DAILYBB [facility] Stop: 09/30/19 06:29 Last Admin: 09/09/19 05:56 Dose: 75 mcg Documented by: Multivitamins (Multivitamin Tab) [facility] [place] Stop: 09/30/19 08:59 Last Admin: 09/09/19 09:07 Dose: 1 tab Documented by: Nystatin (Mycostatin) 5 ml PO QID [facility] Stop: 10/03/19 16:59 Last Admin: 09/09/19 09:06 Dose: 5 ml Documented by: Ondansetron HCl (Zofran) 4 mg IV Q6H PRN PRN Reason: Nausea Stop: 09/30/19 18:29 (1) Leukocytosis Leukocytosis type: unspecified Qualified Code(s): D72.829 - Elevated white blood cell count, unspecified
[2019-09-09] MEDS: THIAMINE HCL 100 MG in SYRINGE 9 ML IV SCH (10:24)
[2019-09-09] MEDS: levETIRAcetam 500 MG TAB PO SCH ×2 (10:25→22:06)
[2019-09-09] MEDS: GABAPENTIN 100 MG CAP PO SCH (22:06)
[2019-09-10] MEDS: LEVOTHYROXINE SODIUM 75 MCG TABLET PO SCH (05:57)
[2019-09-10 07:39] LABS: Basophils # (auto) 0.03 K/uL (0-0.2); Basophils % (auto) 0.2 %; Eosinophils # (auto) 0.09 K/uL (0-0.5); Eosinophils % (auto) 0.6 %; Hematocrit (blood only) 40.8 % (37-47); Immature Granulocytes # (auto) 0.04 K/uL (0.00-0.02); Immature Granulocytes % (auto) 0.3 %; Lymphocytes # (auto) 2.55 K/uL (1.2-3.4); Lymphocytes % (auto) 18.1 %; Mean Corpuscular Hemoglobin 32.3 pg (25-34); Mean Corpuscular Hgb Conc 34.3 g/dL (32-36); Mean Platelet Volume 9.7 fL (7.4-10.4); Monocytes # (auto) 1.22 K/uL (0.11-0.59); Monocytes % (auto) 8.6 %; Neutrophils # (auto) 10.18 K/uL (1.4-6.5); Neutrophils % (auto) 72.2 %; Platelet Count 280 K/uL (130-400); RDW Coefficient of Variation 14.1 % (11.5-14.5); RDW Standard Deviation 48.3 fL (36.4-46.3); Red Blood Count 4.34 M/uL (4.2-5.4); White Blood Count 14.11 K/uL (4.8-10.8)
[2019-09-10 08:07] LABS: BUN Creatinine Ratio 21.5 (10-20); Calcium 9.6 mg/dl (8.5-10.1); Creatinine Clr Calc Pharmacy 85.4 ml/min; Est GFR (African American) 112.5; Est GFR (Non-African American) 97.1; Potassium 3.9 mmol/L (3.5-5.1)
[2019-09-10] MEDS: THIAMINE HCL 100 MG in SYRINGE 9 ML IV SCH (09:09)
[2019-09-10] MEDS: NYSTATIN SUSP 500,000 U/5 ML UDC PO SCH ×2 (09:10→12:43)
[2019-09-10] MEDS: MULTIVITAMIN TAB PO SCH (09:10)
[2019-09-10] MEDS: FOLIC ACID 1 MG TAB PO SCH (09:10)
[2019-09-10] MEDS ORDERED: DOCUSATE SODIUM SYRUP 100 MG/10 ML UDC PO STA (09:27)
[2019-09-10] MEDS ORDERED: POLYETHYLENE (MIRALAX) 17 GM PACK PO PRN (09:30)
--- NOTE | 2019-09-10 10:00 | XRay Report ---
XR chest 1V portable HISTORY: elevated WBC COMPARISON: Chest 08/30/2019. FINDINGS: No pneumothorax. Small bilateral pleural effusions. Patchy left basilar densities persist. The heart remains enlarged. Interstitial thickening suggestive of developing pulmonary edema. This is similar to the prior study. IMPRESSION: 1. Mild cardiomegaly with mild developing pulmonary edema. This is similar to the prior study. 2. Small bilateral pleural effusions. 3. No change in the small left basilar patchy densities. This favors atelectasis. A pneumonia could a lso have a similar appearance in the appropriate clinical setting. Electronically signed by: Chris Obrien M.D. 09/10/2019 9:59 AM
[2019-09-10] MEDS: levETIRAcetam 500 MG TAB PO SCH (10:35)
[2019-09-10 12:49] LABS: Appearance Urine Cloudy (Clear); Bacteria Urine Automated 2+ (Negative); Bilirubin Urine Negative (Negative); Blood Urine Negative (Negative); Color Urine Yellow; Glucose Urine UA Negative (Negative); Ketones Urine Negative (Negative); Leukocyte Esterase Urine 1+ (Negative); Nitrite Urine Negative (Negative); Protein Urine Negative (Negative); RBC Urine Automated 0-4 /hpf (0-4); Specific Gravity Urine 1.015 (1.000-1.030); Urobilinogen Urine Negative (Negative); WBC Urine Automated >30 /hpf (0-5); pH Urine 5.5 (4.5-7.5)
[2019-09-10] MEDS ORDERED: cefUROXime axetil 250 MG TABLET PO SCH (13:30)
--- NOTE | 2019-09-10 14:51 | Discharge Summary ---
Date of Service September 10, 2019 Admission HPI Per Admitting Provider History obtained from family and records. Unable to obtain history from patient secondary to disorientation/agitated state. Medical history significant for dementia as per records, possible Wernicke encephalopathy, hypothyroidism, past alcohol abuse, history of brain tumor as per records. Recent confinement 2 weeks ago for metabolic encephalopathy attributed to alcohol use. 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 9 mm lobular lesion within the left orbital apex. Patient discharged to [facility] for rehab last week. Patient doing well at rehab as per brother. Discharged to home contemplated 3 days from now. As per records, this afternoon patient noted to have a seizure while sitting on her wheelchair. Patient's head went back followed by stiffening. Subsequent fall after episode. Patient more disoriented than usual after episode. At the ER, serum sodium noted to be 116. Patient given banana bag and hypertonic saline. Medical History as above Surgical History : None per brother Family History : Could not be obtained Personal/Social history : Non-smoker, past alcohol abuse, disabled Discharge Data Allergies Allergy/AdvReac Type Severity Reaction Status Date / Time No Known Allergies Allergy Unverified 08/30/19 19:57 Consultations 08/30/19 19:53 ED Decision to Admit Stat 08/30/19 21:27 Consult Case Management - Discharge Planning Routine Consult Director Report Routine Consult Nephrology Routine Consult Neurology Routine 08/30/19 21:41 Consult Case Management - Discharge Planning Routine 09/10/19 07:59 Burn CD for patient Routine Ordered Studies 08/30/19 18:28 CT cervical spine wo con Stat CT head/brain wo con Stat Discharge Plan Discharge Items Patient Disposition: Home - Self-Care Reason For Visit: HYPONATREMIA Discharge Diagnosis: Hyponatremia, seizure, Left frontal bone lesions, Lobular lesion within the left orbital apex Activity: As commented below Activity Comment: as tolerated/ per physical therapist, ask for help as needed Non-emergency contact: Primary Care Provider Call non-emergency contact if: you have any medication questions and your symptoms worsen Follow-up/Referrals: [facility] [Primary Care Provider] - Diet: Regular Fluids: 1500ml (6 cups) Addtl Attending Provider Instructions: You will need to follow-up with a primary care provider, within 1 week of discharge. At that time you will need a blood work, CBC and BMP, to check your sodium level and white blood cell count. You will also need to follow-up with your primary care provider regarding your UTI. You will need to continue physical therapy, the prescription for physical therapy evaluation and treatment is provided to you on discharge. You were started on Keppra for seizure prophylaxis, you will need to follow-up with neurology in 4 weeks, with routine EEG. You will also need to follow-up with neurosurgery, for work-up of blane/brain lesions, the CD copy of images obtained in the hospital are provided to you on discharge. Pending Studies at Discharge: No Stand-Alone Forms: [facility], Smoking Cessation Medications and DC Order Prescriptions: New cefuroxime axetil 250 mg Tablet 250 mg PO BID 7 Days Qty: 14 RF: 0 levetiracetam [Keppra] 500 mg Tablet 500 mg PO Q12H 30 Days Qty: 60 RF: 0 polyethylene glycol 3350 [Miralax] 17 gram Powder In Packet 17 g PO ONCE PRN (Reason: constipation) 7 Days Qty: 10 RF: 0 Continued multivitamin [Daily-Lauryn] Tablet 1 tab PO QAM 30 Days Qty: 30 RF: 0 thiamine HCl (vitamin B1) [Vitamin B-1] 100 mg Tablet 100 mg PO QAM 30 Days Qty: 30 RF: 0 folic acid 1 mg Tablet 1 mg PO QAM 30 Days Qty: 30 RF: 0 gabapentin [Neurontin] 100 mg capsule 100 mg PO HS Qty: 30 RF: 0 acetaminophen [Tylenol] 325 mg Tablet 650 mg PO Q4 PRN (Reason: Flu Symptoms) RF: 0 levothyroxine [Synthroid] 75 mcg Tablet 75 mcg PO DAILY RF: 0 magnesium hydroxide [Milk of Magnesia] 400 mg/5 mL Suspension 30 ml PO UD PRN (Reason: Constipation) RF: 0 insulin lispro [Humalog U-100 Insulin] 100 unit/mL Solution 1 sliding scale dose SUBCUT [id number] RF: 0 Discharge Orders: Discharge Order (Routine); Ordered 09/10/19 Ordered By: Parker Villa Admission Data Admit Date/Time: 08/30/19 20:22 Attending Provider: Parker Villa Admit Provider: Sheldon Agee Primary Care Provider: Dell Vaughn Other Providers: Dell Vaughn ; Garret Meyer [place] ; Francie Brower ; Sheldon Agee ; Ryan Seth ; Renetta Simental ; Nicole Smith ; Ngozi Scott
== END 2019-09-10 15:54 | disposition home or self-care (01) | DRG 101 ==
LOC: ED 18:26 → SUATTDRO 20:22 → 1E 20:22 → 2S 08-31 14:17 → 3W 09-03 13:05